=== PATIENT | female | born 1965 | race Caucasian/White ===

== ENCOUNTER 2018-12-08 21:01 | Emergency (ER) | payer OTHER, MEDICAID, SELFPAY ==
[2018-12-08 21:18] VITALS: BP 120/80; PULSE 88; RESP 18; TEMP 36.6; O2SAT 99
--- NOTE | 2018-12-08 21:18 | ED_ITS ---
HPI - Extremity Injury (Upper) General Chief Complaint: Extremity Problem,Nontraumatic Stated Complaint: LEFT SHOULDER, ARM PAIN Time Seen by Provider: 12/08/18 21:02 Source: patient and family Mode of arrival: ambulatory Limitations: no limitations History of Present Illness HPI narrative: 53-year-old female nonsmoker with benign medical history presents with severe left shoulder pain in the absence of any significant injury. The patient has had ongoing trouble with this left shoulder and a recent MRI shows a partial tear of her rotator cuff. She has been to 2 sessions of physical therapy but denies any new injury or supposed overuse. She finds relief with a position of comfort and worsening symptoms with range of motion. She denies numbness, tingling or weakness. She is otherwise well. Related Data Previous Rx's Medication Instructions Recorded hydrocodone-acetaminophen 1 tab PO Q4-6H PRN #10 tab 12/08/18 Allergies Allergy/AdvReac Type Severity Reaction Status Date / Time No Known Drug Allergies Allergy Verified 12/08/18 21:20 Review of Systems Constitutional Denies chills, Denies fever(s), Denies lethargy and Denies weakness Eyes Denies change in vision, Denies eye discharge, Denies irritation and Denies loss of vision ENT Ears, Nose, Mouth, and Throat: Denies change in voice, Denies neck pain and Den ies sore throat Cardiovascular Denies chest pain, Denies irregular heart rhythm, Denies lightheadedness, Denies palpitations, Denies dyspnea, Denies dyspnea on exertion and Denies orthopnea Respiratory Denies cough, Denies dyspnea, Denies dyspnea on exertion and Denies wheezing Gastrointestinal Gastrointestinal: Denies abdominal pain, Denies change in bowel habits, Denies diarrhea, Denies nausea and Denies vomiting Genitourinary Denies hematuria, Denies flank pain, Denies urinary incontinence and Denies urinary urgency Musculoskeletal Reports limited range of motion and Denies neck pain Integumentary/Breasts Denies pruritus, Denies erythema, Denies rash and Denies wounds Neurologic Denies confusion, Denies loss of vision and Denies weakness Psychiatric Denies anxiety, Denies confusion, Denies depression, Denies homicidal ideation and Denies suicidal ideation Endocrine Denies palpitations Hematologic/Lymphatic Denies easy bruising Allergic/Immunologic Denies wheezing [facility] Social History Smoking Status: Never smoker Social History Smoking Status: Never smoker Exam Narrative Exam Narrative: GEN: AOx3 and in mild distress, obviously in pain, splinting her left shoulder EYES: Pupils are equal, round, and reactive to light and accommodation. Extraoccular muscles are intact bilaterally. There is no subconjunctival hemorrhage or exudate. CHEST: Lungs are clear to auscultation bilaterally and free of wheezes, rales, or rhonchi. Heart rate is regular rhythm, there are no murmurs, clicks, rubs, or gallops. There is no chest wall tenderness. ABD: Abdomen is soft and nontender. There is no guarding or rebound. Bowel sounds are normal in all 4 quadrants. There is no mass or organomegaly. EXT: Decreased range of motion secondary to pain, held in a splinted position with left forearm across belly. Tenderness primarily in lateral shoulder. No sensory deficit. Unable to examine full range of motion given pain SKIN: Warm, pink, and dry. No erythema or rash Initial Vital Signs Initial Vital Signs: Vital Signs Temperature 97.9 F 12/08/18 21:18 Pulse Rate 88 12/08/18 21:18 Respiratory Rate 18 12/08/18 21:18 Blood Pressure 120/80 12/08/18 21:18 Pulse Oximetry 99 12/08/18 21:18 Procedures Orthopedic Splinting/Casting Injury #1: Side: left Upper Extremity Injury Location: shoulder Upper Extremity Immobilizer: sling/shoulder immobilizer Post splinting neuro exam: intact Post splinting vascular exam: intact Placed by: Nursing Course Orders Ordered: Discontinued Medications Hydrocodone Bitart/Acetaminophen (Vicodin Prepack) 1 bottle [facility] Stop: 12/08/18 21:14 Last Admin: 12/08/18 21:21 Dose: 1 bottle Vital Signs - 8 hr 12/08/18 21:18 Temperature 97.9 F Pulse Rate 88 Respiratory Rate 18 Blood Pressure 120/80 Pulse Oximetry 99 MDM - Extremity Injury (Upper) [facility] Narrative Medical decision making narrative: Patient with no injury, known left shoulder problem as noted on recent MRI presents with severe pain. She recently started up physical therapy which may have exacerbated her problem. Patient given a splint which provides some relief as well as pain control and encouragement to follow up with her doctors. No new imaging given lack of any traumatic injury Discharge Plan Departure Patient Disposition: Home Clinical Impression: Shoulder pain, left Qualifiers: Chronicity: acute Qualified Code(s): M25.512 - Pain in left shoulder Discharge Date/Time: 12/08/18 21:30 Interventions: ED Discharge Assessment Last Done: 12/08/18 21:30 Instructions: DI for Shoulder Pain Activity Restrictions/Additional Instructions: *You have been diagnosed with [left shoulder injury] *What to do: *Take medications as directed *Follow up with your primary care provider in 2-3 days, call for an appointment. Let them know you were seen in the Emergency Department and that we ask that you be seen in follow up *Return to ER if you should have any new, worsening or concerning symptoms Prescriptions: New hydrocodone-acetaminophen 5-325 mg tablet 1 tab PO Q4-6H PRN (Reason: pain) Qty: 10 RF: 0 Referrals: Art Amador MD [Primary Care Provider] - Dom Benton MD [Physician] -
[2018-12-08] MEDS: HYDROCODONE/ACET 5/325 PREPACK 1 BOTTLE MISC (21:21)
== END 2018-12-08 21:30 | disposition home or self-care (01) ==
PROVIDERS: Emergency Provider Emergency Medicine; Family Provider Family Medicine; PCP Family Medicine
DX: M25.512 Pain in left shoulder (principal)
CPT/HCPCS: 99282; 99283

== ENCOUNTER 2019-01-27 07:30 | Outpatient (RCR) | payer OTHER, MEDICAID, SELFPAY ==
--- NOTE | 2018-12-01 17:35 | PT.OIE ---
Current Diagnoses Acute pain due to trauma (12/01/18) Pain in left shoulder (12/01/18) Provider Visit Care Team Role Provider Type Art Amador MD Attending Provider Non-Staff Primary Care Provider Specialty: Medical Address: [address] [place] [address], [id number] Email: Physical Therapy Initial Evaluation PT-OP-A Visit Information Start: 12/01/18 09:02 Freq: Status: Active Protocol: Document 12/01/18 09:02 EA (Rec: 12/01/18 09:04 EA [id number]) Out-Patient Physical Therapy Visit Information Visit Information Visit Type Initial Evaluation Visit Start Time 07:30 Visit Stop Time 08:15 Total Visit Minutes 45 Visit Number 1 Evaluation Information Evaluation Date 12/01/18 PT-OP-B Current Condition Start: 12/01/18 09:02 Freq: Status: Active Protocol: Document 12/01/18 09:02 EA (Rec: 12/01/18 09:04 EA [id number]) Current Condition History of Current Condition Onset Date 1 year ago Current Complaints left shoulder pain History of Current Condition Pt reports no significant shoulder injury and medical history that could relate to her left shoulder. She reports onset a year ago and was aggravated two months ago after a fall and landed to left shoulder; she denies severe injury or hospitalization. She reports recent MRI reveals supraspinatus partial tendon tear, AC jont OA, and calcific tendinits. She reports that pain awakes her at night and ICE and OTC meds help put her back to sleep. Prior Treatments and Tests Recent shoulder MRI. No formal PT treatment Future Testing and Treatments Planned None reported Treatment Goals Patient/Caregiver Goals 1. To have no pain 2. 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 Baseline Function- Recreation/Hobbies Play with her small kids Current Functional Impairments (Reported) Functional Limitations- ADL's Indep but difficulty with overhead activities using left arm Functional Limitations- Mobility/Gait Indep Functional Limitations- Work/School Limited shoulder functional use in all overhead and reaching backward. Functional Limitations- Recreation/ Impaired left shoulder Hobbies mobility Personal Factors Other Personal Factors That May Effect DM, Back pain,asthma Therapy/Recovery PT-OP-C Subjective Start: 12/01/18 09:02 Freq: Status: Active Protocol: Document 12/01/18 17:30 EA (Rec: 12/02/18 09:40 EA [id number]) OP-PT Subjective Patient Comments Patient Comments Sleeping to left shoulder becomes horrible Patient Reported Progress Worse Patient Questionnaires Quick Dash- Upper Extremity Quick Dash UE Score 52 Quick Dash UE Impairment 40 to 59% Impaired (Score 40- 59) PT-OP-E Functional Tests Start: 12/01/18 09:02 Freq: Status: Active Protocol: Document 12/01/18 17:35 EA (Rec: 12/02/18 11:07 EA [id number]) Functional Tests Apley's Scratch Test Action 1- Left post deltoi Action 1- Right Sup scap boder Action 2- Left T3 Action 2- Right T4 Action 3- Left L3 Action 3- Right T6 PT-OP-J Posture/Palpation/Skin Start: 12/01/18 09:02 Freq: Status: Active Protocol: Document 12/01/18 17:30 EA (Rec: 12/02/18 09:40 EA [id number]) Posture Evaluation Comments Posture Comments Slight fwd head and rounded shoulders. Palpation Assessment Location One Palpation Location anterior shoulder/ TRC insertion, SS muscle Palpation Findings Tenderness PT-OP-K Range of Motion Start: 12/01/18 09:02 Freq: Status: Active Protocol: Document 12/01/18 17:30 EA (Rec: 12/02/18 09:45 EA [id number]) Shoulder Goniometric Range of Motion Shoulder Left Active Shoulder ROM WFL Yes Right Active Shoulder ROM WFL No Testing Position Sitting Flexion 165 Extension 55 Abduction 160 External Rotation at 0 degrees Abduction 65 Internal Rotation 45 Shoulder ROM Limitations Shoulder ROM Limitations Pain PT-OP-L Special Tests Start: 12/01/18 09:02 Freq: Status: Active Protocol: Document 12/01/18 17:30 EA (Rec: 12/02/18 09:45 EA [id number]) Special Tests Shoulder Special Tests Lucero Nick Impingement Test Results + Empty Can Test Results + Elevation Impingement Test Results + Lift-Off Rotator Cuff Test Results + Speed's Biceps Test Results - Neer Impingement Test Results + PT-OP-M Strength Start: 12/01/18 09:02 Freq: Status: Active Protocol: Document 12/01/18 17:35 EA (Rec: 12/02/18 11:07 EA [id number]) Shoulder Strength Shoulder Manual Muscle Testing Right Reason Not Measured WFL Left Flexion 3+ Fair+ Extension 4- Good- Abduction (C5) 3+ Fair+ Adduction 4 Good External Rotation 3+ Fair+ Internal Rotation 3+ Fair+ Horizontal Abduction 4- Good- Horizontal Adduction 4- Good- Comments Pain limits strength Elbow/Forearm Strength Elbow and Forearm Manual Muscle Testing Right Reason Not Measured WFL PT-OP-Q Treatments Start: 12/01/18 09:02 Freq: Status: Active Protocol: Document 12/01/18 17:35 EA (Rec: 12/02/18 11:08 EA [id number]) Self-Care/Home Management Treatment Education Patient Education Home Exercise Program Joint Protection Pain Management Posture PT-OP-T Assessment and Plan Start: 12/01/18 09:02 Freq: Status: Active Protocol: Document 12/01/18 17:35 EA (Rec: 12/02/18 11:07 EA [id number]) Physical Therapy Assessment Rehab Potential Rehabilitation Potential Good Evaluation Complexity Number of Personal Factors/Comorbidities 3 or More Number of Body Systems Impaired 3 Clinical Presentation at Evaluation Evolving Impairments Impairments Activity Tolerance Functional Mobility Pain Posture ROM Strength Goals Four Impairment 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 LTG Duration 4 wks Two Impairment QuickDash shoulder functional score of 52/100 Manager Control Goal (LTG) QuickDash functional score of <20/100 LTG Duration 5 wks One Impairment NO HEP in place Manager Control Goal (LTG) Patient perform progressive HEP independently LTG Duration 3 wks Assessment Summary Assessment Pleasant 53 y/o F patient with referring diagnosis of acute left shoulder pain due to trauma. Today patient exhibits decreased functional overhead, backward/fwd reach due to shoulder pain. Specials tests consistent with rotator cuff injury/ dysfunction. ROM and strength are equally limited with no signs of atrophy. At this time , patient is impaired to perform arm tasks or activities that was not limited a two months ago. Patient would greatly benefit with skilled PT to reach high functional shoulder mobility. Physical Therapy Plan Frequency and Duration Frequency of Treatment 2x/Week Duration of Treatment 8wks Plan of Care Start Date 12/01/18 Plan of Care End Date 01/26/19 Therapeutic Interventions Therapeutic Interventions Home Exercise Program Joint Mobilizations Manual Therapy Patient/Caregiver Education Self-Care/Home Management Sensory Integration Soft Tissue Mobilization Therapeutic Exercises Modalities Cold Pack/Ice Massage Electric Stimulation Hot Packs Ultrasound Next Visit Focus/Plan Next Note Type Treatment Note Next Visit Plan HEP with images, molaities to pain, ROM exercises, education to restrictions
--- NOTE | 2018-12-01 17:35 | PT.OPPOC ---
Current Diagnoses Acute pain due to trauma (12/01/18) Pain in left shoulder (12/01/18) Provider Visit Care Team Role Provider Type Art Amador MD Attending Provider Non-Staff Primary Care Provider Specialty: Medical Address: [address] [place] [address], [phone] Email: Plan Of Care PT-OP-T Assessment and Plan Start: 12/01/18 09:02 Freq: Status: Active Protocol: Document 12/01/18 17:35 EA (Rec: 12/02/18 11:07 EA [id number]) Physical Therapy Assessment Rehab Potential Rehabilitation Potential Good Evaluation Complexity Number of Personal Factors/Comorbidities 3 or More Number of Body Systems Impaired 3 Clinical Presentation at Evaluation Evolving Impairments Impairments Activity Tolerance Functional Mobility Pain Posture ROM Strength Goals Four Impairment 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 LTG Duration 4 wks Two Impairment QuickDash shoulder functional score of 52/100 Chcf Goal (LTG) QuickDash functional score of <20/100 LTG Duration 5 wks One Impairment NO HEP in place Chcf Goal (LTG) Patient perform progressive HEP independently LTG Duration 3 wks Assessment Summary Assessment Pleasant 53 y/o F patient with referring diagnosis of acute left shoulder pain due to trauma. Today patient exhibits decreased functional overhead, backward/fwd reach due to shoulder pain. Specials tests consistent with rotator cuff injury/ dysfunction. ROM and strength are equally limited with no signs of atrophy. At this time , patient is impaired to perform arm tasks or activities that was not limited a two months ago. Patient would greatly benefit with skilled PT to reach high functional shoulder mobility. Physical Therapy Plan Frequency and Duration Frequency of Treatment 2x/Week Duration of Treatment 8wks Plan of Care Start Date 12/01/18 Plan of Care End Date 01/26/19 Therapeutic Interventions Therapeutic Interventions Home Exercise Program Joint Mobilizations Manual Therapy Patient/Caregiver Education Self-Care/Home Management Sensory Integration Soft Tissue Mobilization Therapeutic Exercises Modalities Cold Pack/Ice Massage Electric Stimulation Hot Packs Ultrasound Next Visit Focus/Plan Next Note Type Treatment Note Next Visit Plan HEP with images, molaities to pain, ROM exercises, education to restrictions Plan of Care Dates Plan of Care Start Date 12/01/18 Plan of Care End Date 01/26/19 Please Sign and Return: I have reviewed this Plan of Care and certify that the skilled therapy services above are required to meet the patient?s needs. Physician Signature Date Printed Name and Credentials Clinical Instructor Signature Printed Name and Credentials
--- NOTE | 2018-12-04 08:18 | PT.OTN ---
Current Diagnoses Acute pain due to trauma (12/04/18) Pain in left shoulder (12/04/18) Physical Therapy Treatment Note PT-OP-A Visit Information Start: 12/01/18 09:02 Freq: Status: Active Protocol: Document 12/04/18 08:08 SA (Rec: 12/04/18 08:17 SA [id number]) Out-Patient Physical Therapy Visit Information Visit Information Visit Type Treatment Note Visit Start Time 07:30 Visit Stop Time 08:15 Visit Number 2 Number of INDUSTRIAL MECHANIC Visits 1 PT-OP-B Current Condition Start: 12/01/18 09:02 Freq: Status: Active Protocol: Document 12/01/18 09:02 EA (Rec: 12/01/18 09:04 EA [id number]) Current Condition History of Current Condition Onset Date 1 year ago Current Complaints left shoulder pain History of Current Condition Pt reports no significant shoulder injury and medical history that could relate to her left shoulder. She reports onset a year ago and was aggravated two months ago after a fall and landed to left shoulder; she denies severe injury or hospitalization. She reports recent MRI reveals supraspinatus partial tendon tear, AC jont OA, and calcific tendinits. She reports that pain awakes her at night and ICE and OTC meds help put her back to sleep. Prior Treatments and Tests Recent shoulder MRI. No formal PT treatment Future Testing and Treatments Planned None reported Treatment Goals Patient/Caregiver Goals 1. To have no pain 2. 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 Baseline Function- Recreation/Hobbies Play with her small kids Current Functional Impairments (Reported) Functional Limitations- ADL's Indep but difficulty with overhead activities using left arm Functional Limitations- Mobility/Gait Indep Functional Limitations- Work/School Limited shoulder functional use in all overhead and reacing backward. Functional Limitations- Recreation/ Impaired left shoulder Hobbies mobility Personal Factors Other Personal Factors That May Effect DM, Back pain,asthma Therapy/Recovery PT-OP-C Subjective Start: 12/01/18 09:02 Freq: Status: Active Protocol: Document 12/04/18 08:08 SA (Rec: 12/04/18 08:17 SA [email or web address]) OP-PT Subjective Patient Comments Patient Comments Pt reports continued pain with sleeping, doing 2 exercises that were given last visit with no problems. PT-OP-E Functional Tests Start: 12/01/18 09:02 Freq: Status: Active Protocol: Document 12/01/18 17:35 EA (Rec: 12/02/18 11:07 EA [id number]) Functional Tests Apley's Scratch Test Action 1- Left post deltoi Action 1- Right Sup scap boder Action 2- Left T3 Action 2- Right T4 Action 3- Left L3 Action 3- Right T6 PT-OP-J Posture/Palpation/Skin Start: 12/01/18 09:02 Freq: Status: Active Protocol: Document 12/01/18 17:30 EA (Rec: 12/02/18 09:40 EA [id number]) Posture Evaluation Comments Posture Comments Slight fwd head and rounded shoulders. Palpation Assessment Location One Palpation Location anterior shoulder/ TRC insertion, SS muscle Palpation Findings Tenderness PT-OP-K Range of Motion Start: 12/01/18 09:02 Freq: Status: Active Protocol: Document 12/01/18 17:30 EA (Rec: 12/02/18 09:45 EA [id number]) Shoulder Goniometric Range of Motion Shoulder Left Active Shoulder ROM WFL Yes Right Active Shoulder ROM WFL No Testing Position Sitting Flexion 165 Extension 55 Abduction 160 External Rotation at 0 degrees Abduction 65 Internal Rotation 45 Shoulder ROM Limitations Shoulder ROM Limitations Pain PT-OP-L Special Tests Start: 12/01/18 09:02 Freq: Status: Active Protocol: Document 12/01/18 17:30 EA (Rec: 12/02/18 09:45 EA [id number]) Special Tests Shoulder Special Tests Lucero Nick Impingement Test Results + Empty Can Test Results + Elevation Impingement Test Results + Lift-Off Rotator Cuff Test Results + Speed's Biceps Test Results - Neer Impingement Test Results + PT-OP-M Strength Start: 12/01/18 09:02 Freq: Status: Active Protocol: Document 12/01/18 17:35 EA (Rec: 12/02/18 11:07 EA [id number]) Shoulder Strength Shoulder Manual Muscle Testing Right Reason Not Measured WFL Left Flexion 3+ Fair+ Extension 4- Good- Abduction (C5) 3+ Fair+ Adduction 4 Good External Rotation 3+ Fair+ Internal Rotation 3+ Fair+ Horizontal Abduction 4- Good- Horizontal Adduction 4- Good- Comments Pain limits strength Elbow/Forearm Strength Elbow and Forearm Manual Muscle Testing Right Reason Not Measured WFL PT-OP-Q Treatments Start: 12/01/18 09:02 Freq: Status: Active Protocol: Document 12/04/18 08:08 (Rec: 12/04/18 08:17 [id number]) Therapeutic Exercises Supine Exercises Scapular punch Side left Reps/Minutes 20x Sidelying Exercises Shoulder ER Side left Reps/Minutes 20x Standing Exercises EXT with dowel Side bilateral Reps/Minutes 25 x Flexion with dowel Side bilateral Reps/Minutes 25 x Comments at wall Scapular rows Side bilateral Equipment Used TB # 2 Reps/Minutes 20x Other Exercises Pulleys Other Exercise Name Scaption/IR in standing Side left Equipment Used pulleys Reps/Minutes 3 min each Manual Therapy Treatment Soft Tissue Mobilization UT/anterior shoulder Mobilization Type Cross-Friction Strumming Sustained Pressure Intensity/Depth Moderate Body Position Hooklying Manual Techniques PROM Type all planes Body Position Hooklying Reps/Duration with stretch PT-OP-R Modalities Start: 12/01/18 09:02 Freq: Status: Active Protocol: Document 12/04/18 08:08 (Rec: 12/04/18 08:17 [id number]) Hot Pack/Cold Pack Treatment CP Location L shoulder Patient Position Hooklying Treatment Duration (minutes) 10 Patient Tolerance Good PT-OP-T Assessment and Plan Start: 12/01/18 09:02 Freq: Status: Active Protocol: Document 12/04/18 08:08 (Rec: 12/04/18 08:17 [id number]) Physical Therapy Assessment Assessment Summary Assessment tolerated new exercises well with reports of fatigue but not pain. Added Rows to HEP with TB and pt using ice reg at home. Education for side sleeping with use of pillow to support LUE. Physical Therapy Plan Next Visit Focus/Plan Next Note Type Treatment Note Next Visit Plan HEP with images, molaities to pain, ROM exercises, education to restrictions
--- NOTE | 2018-12-16 18:39 | PT.OTN ---
Current Diagnoses Acute pain due to trauma (12/16/18) Pain in left shoulder (12/16/18) Physical Therapy Treatment Note PT-OP-A Visit Information Start: 12/01/18 09:02 Freq: Status: Active Protocol: Document 12/16/18 17:30 HH (Rec: 12/16/18 18:39 HH [email or web address]) Out-Patient Physical Therapy Visit Information Visit Information Visit Type Treatment Note Visit Start Time 17:30 Visit Stop Time 18:15 Visit Number 3 Number of RN ORTHO Visits 0 PT-OP-B Current Condition Start: 12/01/18 09:02 Freq: Status: Active Protocol: Document 12/01/18 09:02 EA (Rec: 12/01/18 09:04 EA [id number]) Current Condition History of Current Condition Onset Date 1 year ago Current Complaints left shoulder pain History of Current Condition Pt reports no significant shoulder injury and medical history that could relate to her left shoulder. She reports onset a year ago and was aggravated two months ago after a fall and landed to left shoulder; she denies severe injury or hospitalization. She reports recent MRI reveals supraspinatus partial tendon tear, AC jont OA, and calcific tendinits. She reports that pain awakes her at night and ICE and OTC meds help put her back to sleep. Prior Treatments and Tests Recent shoulder MRI. No formal PT treatment Future Testing and Treatments Planned None reported Treatment Goals Patient/Caregiver Goals 1. To have no pain 2. 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 Baseline Function- Recreation/Hobbies Play with her small kids Current Functional Impairments (Reported) Functional Limitations- ADL's Indep but difficulty with overhead activities using left arm Functional Limitations- Mobility/Gait Indep Functional Limitations- Work/School Limited shoulder functional use in all overhead and reacing backward. Functional Limitations- Recreation/ Impaired left shoulder Hobbies mobility Personal Factors Other Personal Factors That May Effect DM, Back pain,asthma Therapy/Recovery PT-OP-C Subjective Start: 12/01/18 09:02 Freq: Status: Active Protocol: Document 12/16/18 17:30 HH (Rec: 12/16/18 18:39 HH [email or web address]) OP-PT Subjective Patient Comments Patient Comments Pt went to follow up with surgeon. Pt decided to try rehab with PT for 8 weeks before considering surgery. Pt also states she went to ER due to excessive shoulder pain. Pt is also prescribed with tramadol and meloxicam. PT-OP-E Functional Tests Start: 12/01/18 09:02 Freq: Status: Active Protocol: Document 12/01/18 17:35 EA (Rec: 12/02/18 11:07 EA [id number]) Functional Tests Apley's Scratch Test Action 1- Left post deltoi Action 1- Right Sup scap boder Action 2- Left T3 Action 2- Right T4 Action 3- Left L3 Action 3- Right T6 PT-OP-J Posture/Palpation/Skin Start: 12/01/18 09:02 Freq: Status: Active Protocol: Document 12/01/18 17:30 EA (Rec: 12/02/18 09:40 EA [id number]) Posture Evaluation Comments Posture Comments Slight fwd head and rounded shoulders. Palpation Assessment Location One Palpation Location anterior shoulder/ TRC insertion, SS muscle Palpation Findings Tenderness PT-OP-K Range of Motion Start: 12/01/18 09:02 Freq: Status: Active Protocol: Document 12/01/18 17:30 EA (Rec: 12/02/18 09:45 EA [id number]) Shoulder Goniometric Range of Motion Shoulder Left Active Shoulder ROM WFL Yes Right Active Shoulder ROM WFL No Testing Position Sitting Flexion 165 Extension 55 Abduction 160 External Rotation at 0 degrees Abduction 65 Internal Rotation 45 Shoulder ROM Limitations Shoulder ROM Limitations Pain PT-OP-L Special Tests Start: 12/01/18 09:02 Freq: Status: Active Protocol: Document 12/01/18 17:30 EA (Rec: 12/02/18 09:45 EA [id number]) Special Tests Shoulder Special Tests Lucero Nick Impingement Test Results + Empty Can Test Results + Elevation Impingement Test Results + Lift-Off Rotator Cuff Test Results + Speed's Biceps Test Results - Neer Impingement Test Results + PT-OP-M Strength Start: 12/01/18 09:02 Freq: Status: Active Protocol: Document 12/01/18 17:35 EA (Rec: 12/02/18 11:07 EA [id number]) Shoulder Strength Shoulder Manual Muscle Testing Right Reason Not Measured WFL Left Flexion 3+ Fair+ Extension 4- Good- Abduction (C5) 3+ Fair+ Adduction 4 Good External Rotation 3+ Fair+ Internal Rotation 3+ Fair+ Horizontal Abduction 4- Good- Horizontal Adduction 4- Good- Comments Pain limits strength Elbow/Forearm Strength Elbow and Forearm Manual Muscle Testing Right Reason Not Measured WFL PT-OP-Q Treatments Start: 12/01/18 09:02 Freq: Status: Active Protocol: Document 12/16/18 17:30 (Rec: 12/16/18 18:39 [email or web address]) Therapeutic Exercises Supine Exercises Scapular punch Side left Reps/Minutes 20x Sidelying Exercises Shoulder ER Side left Reps/Minutes 20x Sitting Exercises table slide Side left Reps/Minutes 10 x2 Comments with towel Standing Exercises wall climb Side bilateral Reps/Minutes 10 x2 AAROM with PVC Standing Exercise Name ABD and flexion Side left Reps/Minutes 10 x 2 EXT with dowel Side bilateral Reps/Minutes 25 x Manual Therapy Treatment Nerve Glides cervical nerve glide Comments cervical SB to R PT-OP-R Modalities Start: 12/01/18 09:02 Freq: Status: Active Protocol: Document 12/04/18 08:08 SA (Rec: 12/04/18 08:17 SA [email or web address]) Hot Pack/Cold Pack Treatment CP Location L shoulder Patient Position Hooklying Treatment Duration (minutes) 10 Patient Tolerance Good PT-OP-T Assessment and Plan Start: 12/01/18 09:02 Freq: Status: Active Protocol: Document 12/16/18 17:30 (Rec: 12/16/18 18:39 [email or web address]) Physical Therapy Assessment Assessment Summary Assessment Pt malik AAROM with PVC very well and reports increased neural sensitivity with nerve glide ex. Pt reports reduced pain and increased ROM at the end of session. Added cervical lateral flexion to R to HEP. Physical Therapy Plan Next Visit Focus/Plan Next Note Type Treatment Note Next Visit Plan reassess pt symptoms and hEP. molaities to pain, ROM exercises, education to restrictions AAROM as malik
--- NOTE | 2018-12-18 12:38 | PT.OTN ---
Current Diagnoses Acute pain due to trauma (12/18/18) Pain in left shoulder (12/18/18) Physical Therapy Treatment Note PT-OP-A Visit Information Start: 12/01/18 09:02 Freq: Status: Active Protocol: Document 12/18/18 08:17 LRN (Rec: 12/18/18 09:05 LRN [id number]) Out-Patient Physical Therapy Visit Information Visit Information Visit Type Treatment Note Visit Start Time 08:17 Visit Stop Time 09:05 Total Visit Minutes 48 Visit Number 4 Number of WELT EDGE ROUNDER Visits 0 Evaluation Information Evaluation Date 12/01/18 Precautions Precautions MRI shows intrasubstance & articular tear of anterior and mid supraspinatus tendon. PT-OP-B Current Condition Start: 12/01/18 09:02 Freq: Status: Active Protocol: Document 12/01/18 09:02 EA (Rec: 12/01/18 09:04 EA [id number]) Current Condition History of Current Condition Onset Date 1 year ago Current Complaints left shoulder pain History of Current Condition Pt reports no significant shoulder injury and medical history that could relate to her left shoulder. She reports onset a year ago and was aggravated two months ago after a fall and landed to left shoulder; she denies severe injury or hospitalization. She reports recent MRI reveals supraspinatus partial tendon tear, AC jont OA, and calcific tendinits. She reports that pain awakes her at night and ICE and OTC meds help put her back to sleep. Prior Treatments and Tests Recent shoulder MRI. No formal PT treatment Future Testing and Treatments Planned None reported Treatment Goals Patient/Caregiver Goals 1. To have no pain 2. 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 Baseline Function- Recreation/Hobbies Play with her small kids Current Functional Impairments (Reported) Functional Limitations- ADL's Indep but difficulty with overhead activities using left arm Functional Limitations- Mobility/Gait Indep Functional Limitations- Work/School Limited shoulder functional use in all overhead and reacing backward. Functional Limitations- Recreation/ Impaired left shoulder Hobbies mobility Personal Factors Other Personal Factors That May Effect DM, Back pain,asthma Therapy/Recovery PT-OP-C Subjective Start: 12/01/18 09:02 Freq: Status: Active Protocol: Document 12/18/18 08:17 LRN (Rec: 12/18/18 09:05 LRN [id number]) OP-PT Subjective Patient Comments Patient Comments States she had alleviation of arm pain with neck ex's. PT-OP-E Functional Tests Start: 12/01/18 09:02 Freq: Status: Active Protocol: Document 12/01/18 17:35 EA (Rec: 12/02/18 11:07 EA [id number]) Functional Tests Apley's Scratch Test Action 1- Left post deltoi Action 1- Right Sup scap boder Action 2- Left T3 Action 2- Right T4 Action 3- Left L3 Action 3- Right T6 PT-OP-J Posture/Palpation/Skin Start: 12/01/18 09:02 Freq: Status: Active Protocol: Document 12/01/18 17:30 EA (Rec: 12/02/18 09:40 EA [id number]) Posture Evaluation Comments Posture Comments Slight fwd head and rounded shoulders. Palpation Assessment Location One Palpation Location anterior shoulder/ TRC insertion, SS muscle Palpation Findings Tenderness PT-OP-K Range of Motion Start: 12/01/18 09:02 Freq: Status: Active Protocol: Document 12/01/18 17:30 EA (Rec: 12/02/18 09:45 EA [id number]) Shoulder Goniometric Range of Motion Shoulder Left Active Shoulder ROM WFL Yes Right Active Shoulder ROM WFL No Testing Position Sitting Flexion 165 Extension 55 Abduction 160 External Rotation at 0 degrees Abduction 65 Internal Rotation 45 Shoulder ROM Limitations Shoulder ROM Limitations Pain PT-OP-L Special Tests Start: 12/01/18 09:02 Freq: Status: Active Protocol: Document 12/01/18 17:30 EA (Rec: 12/02/18 09:45 EA [id number]) Special Tests Shoulder Special Tests Lucero Nick Impingement Test Results + Empty Can Test Results + Elevation Impingement Test Results + Lift-Off Rotator Cuff Test Results + Speed's Biceps Test Results - Neer Impingement Test Results + PT-OP-M Strength Start: 12/01/18 09:02 Freq: Status: Active Protocol: Document 12/01/18 17:35 EA (Rec: 12/02/18 11:07 EA [id number]) Shoulder Strength Shoulder Manual Muscle Testing Right Reason Not Measured WFL Left Flexion 3+ Fair+ Extension 4- Good- Abduction (C5) 3+ Fair+ Adduction 4 Good External Rotation 3+ Fair+ Internal Rotation 3+ Fair+ Horizontal Abduction 4- Good- Horizontal Adduction 4- Good- Comments Pain limits strength Elbow/Forearm Strength Elbow and Forearm Manual Muscle Testing Right Reason Not Measured WFL PT-OP-Q Treatments Start: 12/01/18 09:02 Freq: Status: Active Protocol: Document 12/18/18 08:17 LRN (Rec: 12/18/18 09:05 LRN [id number]) Therapeutic Exercises Supine Exercises Neck stretch Supine Exercise Name Scalenes Side left Reps/Minutes 3' Lat pull down Supine Exercise Name Lat pull down Resistance Lev 2 T Band Reps/Minutes 30x Scapular punch Side left Reps/Minutes 20x Sidelying Exercises Shoulder ER Side left Reps/Minutes 10 x 3 Sitting Exercises table slide Sitting Exercise Name Flex & AB Side left Reps/Minutes 10 x2 Comments with towel Standing Exercises Arm extension Side bilateral Resistance TB # 2 Equipment Used 15x wall climb Side bilateral Reps/Minutes 10 x3 AAROM with PVC Standing Exercise Name ABD and flexion Side left Reps/Minutes 10 x 2 EXT with dowel Side bilateral Reps/Minutes 25 x Scapular rows Side bilateral Equipment Used TB # 2 Reps/Minutes 15x Manual Therapy Treatment Nerve Glides cervical nerve glide Comments cervical SB to R Self-Care/Home Management Treatment Education Patient Education Home Exercise Program Activities Self-Care/Home Management Activities Issued & reviewed HEP: Scalene stretches PT-OP-R Modalities Start: 12/01/18 09:02 Freq: Status: Active Protocol: Document 12/18/18 08:17 LRN (Rec: 12/18/18 12:38 LRN [id number]) Hot Pack/Cold Pack Treatment CP Location L shoulder Patient Position Hooklying Treatment Duration (minutes) 10 Patient Tolerance Good PT-OP-T Assessment and Plan Start: 12/01/18 09:02 Freq: Status: Active Protocol: Document 12/18/18 08:17 LRN (Rec: 12/18/18 09:05 LRN [id number]) Physical Therapy Assessment Assessment Summary Assessment Last session, lessened lateral brachium pain with neck stretches. Pt felt good stretch with scalene stretch. Physical Therapy Plan Frequency and Duration Frequency of Treatment 2x/Week Duration of Treatment 8wks Plan of Care Start Date 12/01/18 Plan of Care End Date 01/26/19 Next Visit Focus/Plan Next Note Type Treatment Note Next Visit Plan Monitor pt symptoms and progress HEP. modalities to pain, ROM exercises, education to restrictions AAROM as malik
--- NOTE | 2018-12-23 12:03 | PT.OTN ---
Current Diagnoses Acute pain due to trauma (12/23/18) Pain in left shoulder (12/23/18) Physical Therapy Treatment Note PT-OP-A Visit Information Start: 12/01/18 09:02 Freq: Status: Active Protocol: Document 12/23/18 08:11 EA (Rec: 12/23/18 08:17 EA [id number]) Out-Patient Physical Therapy Visit Information Visit Information Visit Type Treatment Note Visit Start Time 07:30 Visit Stop Time 08:18 Total Visit Minutes 48 Visit Number 5 Number of SPECIAL EFFECTS PERSON Visits 1 PT-OP-B Current Condition Start: 12/01/18 09:02 Freq: Status: Active Protocol: Document 12/01/18 09:02 EA (Rec: 12/01/18 09:04 EA [id number]) Current Condition History of Current Condition Onset Date 1 year ago Current Complaints left shoulder pain History of Current Condition Pt reports no significant shoulder injury and medical history that could relate to her left shoulder. She reports onset a year ago and was aggravated two months ago after a fall and landed to left shoulder; she denies severe injury or hospitalization. She reports recent MRI reveals supraspinatus partial tendon tear, AC jont OA, and calcific tendinits. She reports that pain awakes her at night and ICE and OTC meds help put her back to sleep. Prior Treatments and Tests Recent shoulder MRI. No formal PT treatment Future Testing and Treatments Planned None reported Treatment Goals Patient/Caregiver Goals 1. To have no pain 2. 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 Baseline Function- Recreation/Hobbies Play with her small kids Current Functional Impairments (Reported) Functional Limitations- ADL's Indep but difficulty with overhead activities using left arm Functional Limitations- Mobility/Gait Indep Functional Limitations- Work/School Limited shoulder functional use in all overhead and reacing backward. Functional Limitations- Recreation/ Impaired left shoulder Hobbies mobility Personal Factors Other Personal Factors That May Effect DM, Back pain,asthma Therapy/Recovery PT-OP-C Subjective Start: 12/01/18 09:02 Freq: Status: Active Protocol: Document 12/23/18 08:11 EA (Rec: 12/23/18 08:17 EA [id number]) OP-PT Subjective Patient Comments Patient Comments Pt reports she has been better since initial eval; states compliant with HEP. PT-OP-E Functional Tests Start: 12/01/18 09:02 Freq: Status: Active Protocol: Document 12/01/18 17:35 EA (Rec: 12/02/18 11:07 EA [id number]) Functional Tests Apley's Scratch Test Action 1- Left post deltoi Action 1- Right Sup scap boder Action 2- Left T3 Action 2- Right T4 Action 3- Left L3 Action 3- Right T6 PT-OP-J Posture/Palpation/Skin Start: 12/01/18 09:02 Freq: Status: Active Protocol: Document 12/01/18 17:30 EA (Rec: 12/02/18 09:40 EA [id number]) Posture Evaluation Comments Posture Comments Slight fwd head and rounded shoulders. Palpation Assessment Location One Palpation Location anterior shoulder/ TRC insertion, SS muscle Palpation Findings Tenderness PT-OP-K Range of Motion Start: 12/01/18 09:02 Freq: Status: Active Protocol: Document 12/01/18 17:30 EA (Rec: 12/02/18 09:45 EA [id number]) Shoulder Goniometric Range of Motion Shoulder Left Active Shoulder ROM WFL Yes Right Active Shoulder ROM WFL No Testing Position Sitting Flexion 165 Extension 55 Abduction 160 External Rotation at 0 degrees Abduction 65 Internal Rotation 45 Shoulder ROM Limitations Shoulder ROM Limitations Pain PT-OP-L Special Tests Start: 12/01/18 09:02 Freq: Status: Active Protocol: Document 12/01/18 17:30 EA (Rec: 12/02/18 09:45 EA [id number]) Special Tests Shoulder Special Tests Lucero Nick Impingement Test Results + Empty Can Test Results + Elevation Impingement Test Results + Lift-Off Rotator Cuff Test Results + Speed's Biceps Test Results - Neer Impingement Test Results + PT-OP-M Strength Start: 12/01/18 09:02 Freq: Status: Active Protocol: Document 12/01/18 17:35 EA (Rec: 12/02/18 11:07 EA [id number]) Shoulder Strength Shoulder Manual Muscle Testing Right Reason Not Measured WFL Left Flexion 3+ Fair+ Extension 4- Good- Abduction (C5) 3+ Fair+ Adduction 4 Good External Rotation 3+ Fair+ Internal Rotation 3+ Fair+ Horizontal Abduction 4- Good- Horizontal Adduction 4- Good- Comments Pain limits strength Elbow/Forearm Strength Elbow and Forearm Manual Muscle Testing Right Reason Not Measured WFL PT-OP-Q Treatments Start: 12/01/18 09:02 Freq: Status: Active Protocol: Document 12/23/18 08:11 EA (Rec: 12/23/18 08:17 EA [id number]) Cardio Equipment Upper Body Ergometer (UBE) Duration (Minutes) 5 Height 4 Therapeutic Exercises Supine Exercises Neck stretch Supine Exercise Name Scalenes Side left Reps/Minutes 3' Scapular punch Side left Resistance 1#AW Reps/Minutes 20x Standing Exercises Arm extension Side bilateral Resistance TB # 2 Equipment Used 15x wall climb Side bilateral Reps/Minutes 10 x3 Other Exercises 3 Other Exercise Name T-Bar shoulder press Reps/Minutes x 15 reps 2 Other Exercise Name T-bar shoulder flexion Resistance 2# Reps/Minutes x 12 reps 1 Other Exercise Name ER/IR Resistance Lv 1 Reps/Minutes x 12 reps Pulleys Other Exercise Name Scaption/IR in standing Side left Equipment Used pulleys Reps/Minutes 3 min each Manual Therapy Treatment Soft Tissue Mobilization UT/anterior shoulder Mobilization Type Cross-Friction Strumming Sustained Pressure Intensity/Depth Moderate Body Position Hooklying PT-OP-R Modalities Start: 12/01/18 09:02 Freq: Status: Active Protocol: Document 12/23/18 08:11 EA (Rec: 12/23/18 08:17 EA [id number]) Hot Pack/Cold Pack Treatment CP Location L shoulder Patient Position Hooklying Treatment Duration (minutes) 10 Patient Tolerance Good PT-OP-T Assessment and Plan Start: 12/01/18 09:02 Freq: Status: Active Protocol: Document 12/23/18 08:11 EA (Rec: 12/23/18 08:17 EA [id number]) Physical Therapy Assessment Assessment Summary Assessment Tolerated treatment well. Less discomfort at 90 deg flex/abd at this time. Patient is progressing well. Physical Therapy Plan Next Visit Focus/Plan Next Note Type Treatment Note Next Visit Plan Progress as tolerated
--- NOTE | 2018-12-30 09:13 | PT.OTN ---
Current Diagnoses Acute pain due to trauma (12/30/18) Pain in left shoulder (12/30/18) Physical Therapy Treatment Note PT-OP-A Visit Information Start: 12/01/18 09:02 Freq: Status: Active Protocol: Document 12/30/18 08:48 EA (Rec: 12/30/18 08:55 EA [id number]) Out-Patient Physical Therapy Visit Information Visit Information Visit Type Treatment Note Visit Start Time 07:30 Visit Stop Time 08:23 Total Visit Minutes 53 Visit Number 6 Number of PICKER MACHINE OPERATOR Visits 1 PT-OP-B Current Condition Start: 12/01/18 09:02 Freq: Status: Active Protocol: Document 12/01/18 09:02 EA (Rec: 12/01/18 09:04 EA [id number]) Current Condition History of Current Condition Onset Date 1 year ago Current Complaints left shoulder pain History of Current Condition Pt reports no significant shoulder injury and medical history that could relate to her left shoulder. She reports onset a year ago and was aggravated two months ago after a fall and landed to left shoulder; she denies severe injury or hospitalization. She reports recent MRI reveals supraspinatus partial tendon tear, AC jont OA, and calcific tendinits. She reports that pain awakes her at night and ICE and OTC meds help put her back to sleep. Prior Treatments and Tests Recent shoulder MRI. No formal PT treatment Future Testing and Treatments Planned None reported Treatment Goals Patient/Caregiver Goals 1. To have no pain 2. 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 Baseline Function- Recreation/Hobbies Play with her small kids Current Functional Impairments (Reported) Functional Limitations- ADL's Indep but difficulty with overhead activities using left arm Functional Limitations- Mobility/Gait Indep Functional Limitations- Work/School Limited shoulder functional use in all overhead and reacing backward. Functional Limitations- Recreation/ Impaired left shoulder Hobbies mobility Personal Factors Other Personal Factors That May Effect DM, Back pain,asthma Therapy/Recovery PT-OP-C Subjective Start: 12/01/18 09:02 Freq: Status: Active Protocol: Document 12/30/18 08:48 EA (Rec: 12/30/18 08:55 EA [id number]) OP-PT Subjective Patient Comments Patient Comments Pt reports left shoulder is quite sore but improving; states aware with shoulder lifting pre-cautions Patient Reported Progress Improving PT-OP-E Functional Tests Start: 12/01/18 09:02 Freq: Status: Active Protocol: Document 12/01/18 17:35 EA (Rec: 12/02/18 11:07 EA [id number]) Functional Tests Apley's Scratch Test Action 1- Left post deltoi Action 1- Right Sup scap boder Action 2- Left T3 Action 2- Right T4 Action 3- Left L3 Action 3- Right T6 PT-OP-J Posture/Palpation/Skin Start: 12/01/18 09:02 Freq: Status: Active Protocol: Document 12/01/18 17:30 EA (Rec: 12/02/18 09:40 EA [id number]) Posture Evaluation Comments Posture Comments Slight fwd head and rounded shoulders. Palpation Assessment Location One Palpation Location anterior shoulder/ TRC insertion, SS muscle Palpation Findings Tenderness PT-OP-K Range of Motion Start: 12/01/18 09:02 Freq: Status: Active Protocol: Document 12/01/18 17:30 EA (Rec: 12/02/18 09:45 EA [id number]) Shoulder Goniometric Range of Motion Shoulder Left Active Shoulder ROM WFL Yes Right Active Shoulder ROM WFL No Testing Position Sitting Flexion 165 Extension 55 Abduction 160 External Rotation at 0 degrees Abduction 65 Internal Rotation 45 Shoulder ROM Limitations Shoulder ROM Limitations Pain PT-OP-L Special Tests Start: 12/01/18 09:02 Freq: Status: Active Protocol: Document 12/01/18 17:30 EA (Rec: 12/02/18 09:45 EA [id number]) Special Tests Shoulder Special Tests Lucero Nick Impingement Test Results + Empty Can Test Results + Elevation Impingement Test Results + Lift-Off Rotator Cuff Test Results + Speed's Biceps Test Results - Neer Impingement Test Results + PT-OP-M Strength Start: 12/01/18 09:02 Freq: Status: Active Protocol: Document 12/01/18 17:35 EA (Rec: 12/02/18 11:07 EA [id number]) Shoulder Strength Shoulder Manual Muscle Testing Right Reason Not Measured WFL Left Flexion 3+ Fair+ Extension 4- Good- Abduction (C5) 3+ Fair+ Adduction 4 Good External Rotation 3+ Fair+ Internal Rotation 3+ Fair+ Horizontal Abduction 4- Good- Horizontal Adduction 4- Good- Comments Pain limits strength Elbow/Forearm Strength Elbow and Forearm Manual Muscle Testing Right Reason Not Measured WFL PT-OP-Q Treatments Start: 12/01/18 09:02 Freq: Status: Active Protocol: Document 12/30/18 08:48 EA (Rec: 12/30/18 08:55 EA [id number]) Cardio Equipment Upper Body Ergometer (UBE) Duration (Minutes) 5 Height 5 Gym Equipment Cable Column (Body Solid) Rows Details full range Resistance 3 plates Reps/Time x 15 reps x 2 Lat Pull Down Details full range Resistance 3 plates Reps/Time x 15 reps x 2 Therapeutic Exercises Standing Exercises Arm extension Standing Exercise Name T-bar Side bilateral Resistance 4lbs Equipment Used 15x Other Exercises 4 Other Exercise Name DB shoulder lat raise Resistance 1-2# Reps/Minutes x 12 reps x 2 sets 3 Other Exercise Name T-Bar shoulder press Resistance 1# Reps/Minutes x 15 reps 2 Other Exercise Name T-bar shoulder flexion Resistance 2# Reps/Minutes x 12 reps 1 Other Exercise Name ER/IR Resistance Lv 1-2 Reps/Minutes x 12 reps x 2 sets Pulleys Other Exercise Name Scaption/IR in standing Side left Equipment Used pulleys Reps/Minutes 3 min each Manual Therapy Treatment Soft Tissue Mobilization UT/anterior shoulder Mobilization Type Cross-Friction Strumming Sustained Pressure Intensity/Depth Moderate Body Position Hooklying PT-OP-R Modalities Start: 12/01/18 09:02 Freq: Status: Active Protocol: Document 12/30/18 08:48 EA (Rec: 12/30/18 08:55 EA [id number]) Hot Pack/Cold Pack Treatment CP Location L shoulder Patient Position Hooklying Treatment Duration (minutes) 10 Patient Tolerance Good PT-OP-T Assessment and Plan Start: 12/01/18 09:02 Freq: Status: Active Protocol: Document 12/30/18 08:48 EA (Rec: 12/30/18 08:55 EA [id number]) Physical Therapy Assessment Assessment Summary Assessment Improved resistance exercises tolerance; discomfort only noetd at ranges 160-180 F/ABD; overall patient is progressing well.
--- NOTE | 2019-01-01 08:16 | PT.OTN ---
Current Diagnoses Acute pain due to trauma (01/01/19) Pain in left shoulder (01/01/19) Physical Therapy Treatment Note PT-OP-A Visit Information Start: 12/01/18 09:02 Freq: Status: Active Protocol: Document 01/01/19 07:30 AMB (Rec: 01/01/19 07:36 AMB [id number]) Out-Patient Physical Therapy Visit Information Visit Information Visit Type Treatment Note Visit Start Time 07:31 Visit Stop Time 08:23 Total Visit Minutes 52 Visit Number 7 Number of CLINICAL TRIAL SPECIALIST Visits 0 PT-OP-B Current Condition Start: 12/01/18 09:02 Freq: Status: Active Protocol: Document 12/01/18 09:02 EA (Rec: 12/01/18 09:04 EA [id number]) Current Condition History of Current Condition Onset Date 1 year ago Current Complaints left shoulder pain History of Current Condition Pt reports no significant shoulder injury and medical history that could relate to her left shoulder. She reports onset a year ago and was aggravated two months ago after a fall and landed to left shoulder; she denies severe injury or hospitalization. She reports recent MRI reveals supraspinatus partial tendon tear, AC jont OA, and calcific tendinits. She reports that pain awakes her at night and ICE and OTC meds help put her back to sleep. Prior Treatments and Tests Recent shoulder MRI. No formal PT treatment Future Testing and Treatments Planned None reported Treatment Goals Patient/Caregiver Goals 1. To have no pain 2. 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 Baseline Function- Recreation/Hobbies Play with her small kids Current Functional Impairments (Reported) Functional Limitations- ADL's Indep but difficulty with overhead activities using left arm Functional Limitations- Mobility/Gait Indep Functional Limitations- Work/School Limited shoulder functional use in all overhead and reacing backward. Functional Limitations- Recreation/ Impaired left shoulder Hobbies mobility Personal Factors Other Personal Factors That May Effect DM, Back pain,asthma Therapy/Recovery PT-OP-C Subjective Start: 12/01/18 09:02 Freq: Status: Active Protocol: Document 01/01/19 07:30 AMB (Rec: 01/01/19 08:14 AMB [id number]) OP-PT Subjective Patient Comments Patient Comments Pt states feeling a bit better , although she did wake up with numbness in bilateral hands this morning, pt was sore after last appt PT-OP-E Functional Tests Start: 12/01/18 09:02 Freq: Status: Active Protocol: Document 12/01/18 17:35 EA (Rec: 12/02/18 11:07 EA [id number]) Functional Tests Apley's Scratch Test Action 1- Left post deltoi Action 1- Right Sup scap boder Action 2- Left T3 Action 2- Right T4 Action 3- Left L3 Action 3- Right T6 PT-OP-J Posture/Palpation/Skin Start: 12/01/18 09:02 Freq: Status: Active Protocol: Document 12/01/18 17:30 EA (Rec: 12/02/18 09:40 EA [id number]) Posture Evaluation Comments Posture Comments Slight fwd head and rounded shoulders. Palpation Assessment Location One Palpation Location anterior shoulder/ TRC insertion, SS muscle Palpation Findings Tenderness PT-OP-K Range of Motion Start: 12/01/18 09:02 Freq: Status: Active Protocol: Document 12/01/18 17:30 EA (Rec: 12/02/18 09:45 EA [id number]) Shoulder Goniometric Range of Motion Shoulder Left Active Shoulder ROM WFL Yes Right Active Shoulder ROM WFL No Testing Position Sitting Flexion 165 Extension 55 Abduction 160 External Rotation at 0 degrees Abduction 65 Internal Rotation 45 Shoulder ROM Limitations Shoulder ROM Limitations Pain PT-OP-L Special Tests Start: 12/01/18 09:02 Freq: Status: Active Protocol: Document 12/01/18 17:30 EA (Rec: 12/02/18 09:45 EA [id number]) Special Tests Shoulder Special Tests Lucero Nick Impingement Test Results + Empty Can Test Results + Elevation Impingement Test Results + Lift-Off Rotator Cuff Test Results + Speed's Biceps Test Results - Neer Impingement Test Results + PT-OP-M Strength Start: 12/01/18 09:02 Freq: Status: Active Protocol: Document 12/01/18 17:35 EA (Rec: 12/02/18 11:07 EA [id number]) Shoulder Strength Shoulder Manual Muscle Testing Right Reason Not Measured WFL Left Flexion 3+ Fair+ Extension 4- Good- Abduction (C5) 3+ Fair+ Adduction 4 Good External Rotation 3+ Fair+ Internal Rotation 3+ Fair+ Horizontal Abduction 4- Good- Horizontal Adduction 4- Good- Comments Pain limits strength Elbow/Forearm Strength Elbow and Forearm Manual Muscle Testing Right Reason Not Measured WFL PT-OP-Q Treatments Start: 12/01/18 09:02 Freq: Status: Active Protocol: Document 01/01/19 07:30 AMB (Rec: 01/01/19 08:06 AMB [id number]) Cardio Equipment Upper Body Ergometer (UBE) Duration (Minutes) 5 Height 5 Gym Equipment Cable Column (Body Solid) Rows Details full range Resistance 3 plates Reps/Time x 15 reps x 2 Lat Pull Down Details full range Resistance 3 plates Reps/Time x 15 reps x 2 Therapeutic Exercises Supine Exercises Neck stretch Supine Exercise Name Scalenes Side left Reps/Minutes 3' Scapular punch Side left Resistance 3#AW Reps/Minutes 20x Sidelying Exercises 1 Sidelying Exercise Name abduction Equipment Used 2# Reps/Minutes 2x10 Shoulder ER Side left Resistance 2# Reps/Minutes 10 x 3 Sitting Exercises 1 Sitting Exercise Name UT stretch Reps/Minutes 30x2 Other Exercises 3 Other Exercise Name T-Bar shoulder press Resistance 4# Reps/Minutes x 15 reps 2 Other Exercise Name T-bar shoulder flexion Resistance 4# Reps/Minutes x 12 reps PT-OP-R Modalities Start: 12/01/18 09:02 Freq: Status: Active Protocol: Document 01/01/19 07:30 AMB (Rec: 01/01/19 07:36 AMB [id number]) Hot Pack/Cold Pack Treatment CP Location L shoulder Patient Position Hooklying Treatment Duration (minutes) 10 Patient Tolerance Good PT-OP-T Assessment and Plan Start: 12/01/18 09:02 Freq: Status: Active Protocol: Document 01/01/19 07:30 AMB (Rec: 01/01/19 08:14 AMB [id number]) Physical Therapy Assessment Assessment Summary Assessment Pt tolerated strengthening well, reinforced sleep posture and neck stretching. Physical Therapy Plan Next Visit Focus/Plan Next Note Type Treatment Note Next Visit Plan Continue to progress HEP, follow up on sx with sleep
--- NOTE | 2019-01-04 12:44 | PT.OTN ---
Current Diagnoses Acute pain due to trauma (01/04/19) Pain in left shoulder (01/04/19) Physical Therapy Treatment Note PT-OP-A Visit Information Start: 12/01/18 09:02 Freq: Status: Active Protocol: Document 01/04/19 07:30 AMB (Rec: 01/04/19 07:59 AMB [id number]) Out-Patient Physical Therapy Visit Information Visit Information Visit Type Treatment Note Visit Start Time 07:45 Visit Stop Time 08:25 Total Visit Minutes 40 Visit Number 8 Number of RESEARCH HOME ECONOMIST Visits 0 PT-OP-B Current Condition Start: 12/01/18 09:02 Freq: Status: Active Protocol: Document 12/01/18 09:02 EA (Rec: 12/01/18 09:04 EA [id number]) Current Condition History of Current Condition Onset Date 1 year ago Current Complaints left shoulder pain History of Current Condition Pt reports no significant shoulder injury and medical history that could relate to her left shoulder. She reports onset a year ago and was aggravated two months ago after a fall and landed to left shoulder; she denies severe injury or hospitalization. She reports recent MRI reveals supraspinatus partial tendon tear, AC jont OA, and calcific tendinits. She reports that pain awakes her at night and ICE and OTC meds help put her back to sleep. Prior Treatments and Tests Recent shoulder MRI. No formal PT treatment Future Testing and Treatments Planned None reported Treatment Goals Patient/Caregiver Goals 1. To have no pain 2. 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 Baseline Function- Recreation/Hobbies Play with her small kids Current Functional Impairments (Reported) Functional Limitations- ADL's Indep but difficulty with overhead activities using left arm Functional Limitations- Mobility/Gait Indep Functional Limitations- Work/School Limited shoulder functional use in all overhead and reacing backward. Functional Limitations- Recreation/ Impaired left shoulder Hobbies mobility Personal Factors Other Personal Factors That May Effect DM, Back pain,asthma Therapy/Recovery PT-OP-C Subjective Start: 12/01/18 09:02 Freq: Status: Active Protocol: Document 01/04/19 07:30 AMB (Rec: 01/04/19 07:59 AMB [id number]) OP-PT Subjective Patient Comments Patient Comments Pt has not noticed more tingling in her hands and her neck is feeling better. She was sore after last visit for day, and continues to notice discomfort if she sleeps on the left side. PT-OP-E Functional Tests Start: 12/01/18 09:02 Freq: Status: Active Protocol: Document 12/01/18 17:35 EA (Rec: 12/02/18 11:07 EA [id number]) Functional Tests Apley's Scratch Test Action 1- Left post deltoi Action 1- Right Sup scap boder Action 2- Left T3 Action 2- Right T4 Action 3- Left L3 Action 3- Right T6 PT-OP-J Posture/Palpation/Skin Start: 12/01/18 09:02 Freq: Status: Active Protocol: Document 12/01/18 17:30 EA (Rec: 12/02/18 09:40 EA [id number]) Posture Evaluation Comments Posture Comments Slight fwd head and rounded shoulders. Palpation Assessment Location One Palpation Location anterior shoulder/ TRC insertion, SS muscle Palpation Findings Tenderness PT-OP-K Range of Motion Start: 12/01/18 09:02 Freq: Status: Active Protocol: Document 12/01/18 17:30 EA (Rec: 12/02/18 09:45 EA [id number]) Shoulder Goniometric Range of Motion Shoulder Left Active Shoulder ROM WFL Yes Right Active Shoulder ROM WFL No Testing Position Sitting Flexion 165 Extension 55 Abduction 160 External Rotation at 0 degrees Abduction 65 Internal Rotation 45 Shoulder ROM Limitations Shoulder ROM Limitations Pain PT-OP-L Special Tests Start: 12/01/18 09:02 Freq: Status: Active Protocol: Document 12/01/18 17:30 EA (Rec: 12/02/18 09:45 EA [id number]) Special Tests Shoulder Special Tests Lucero Nick Impingement Test Results + Empty Can Test Results + Elevation Impingement Test Results + Lift-Off Rotator Cuff Test Results + Speed's Biceps Test Results - Neer Impingement Test Results + PT-OP-M Strength Start: 12/01/18 09:02 Freq: Status: Active Protocol: Document 12/01/18 17:35 EA (Rec: 12/02/18 11:07 EA [id number]) Shoulder Strength Shoulder Manual Muscle Testing Right Reason Not Measured WFL Left Flexion 3+ Fair+ Extension 4- Good- Abduction (C5) 3+ Fair+ Adduction 4 Good External Rotation 3+ Fair+ Internal Rotation 3+ Fair+ Horizontal Abduction 4- Good- Horizontal Adduction 4- Good- Comments Pain limits strength Elbow/Forearm Strength Elbow and Forearm Manual Muscle Testing Right Reason Not Measured WFL PT-OP-Q Treatments Start: 12/01/18 09:02 Freq: Status: Active Protocol: Document 01/04/19 07:30 AMB (Rec: 01/04/19 07:59 AMB [id number]) Cardio Equipment Upper Body Ergometer (UBE) Duration (Minutes) 5 Height 5 Gym Equipment Cable Column (Body Solid) Rows Details full range Resistance 3 plates Reps/Time x 15 reps x 2 Lat Pull Down Details full range Resistance 3 plates Reps/Time x 15 reps x 2 Therapeutic Exercises Supine Exercises 1 Supine Exercise Name alternating isometrics Reps/Minutes 3 min Comments shoulder at 90 flex Sitting Exercises 1 Sitting Exercise Name UT stretch Reps/Minutes 30x2 Standing Exercises 3 Standing Exercise Name shoulder IR Resistance #2 TB Reps/Minutes 2x10 2 Standing Exercise Name shoulder ER Resistance #1 TB Reps/Minutes 1x12 1 Standing Exercise Name pec stretch doorway Reps/Minutes 30x2 PT-OP-R Modalities Start: 12/01/18 09:02 Freq: Status: Active Protocol: Document 01/04/19 07:30 AMB (Rec: 01/04/19 08:16 AMB [id number]) Hot Pack/Cold Pack Treatment CP Location L shoulder Patient Position Hooklying Treatment Duration (minutes) 10 Patient Tolerance Good PT-OP-T Assessment and Plan Start: 12/01/18 09:02 Freq: Status: Active Protocol: Document 01/04/19 07:30 AMB (Rec: 01/04/19 08:16 AMB [id number]) Physical Therapy Assessment Assessment Summary Assessment Pt with difficulty with resisted ER, but otherwise progressing well, may want to further discuss HEP for progression at home. Physical Therapy Plan Next Visit Focus/Plan Next Note Type Treatment Note Next Visit Plan Continue to progress HEP, follow up on sx with sleep
--- NOTE | 2019-01-14 12:02 | PT.OTN ---
Current Diagnoses Acute pain due to trauma (01/14/19) Pain in left shoulder (01/14/19) Physical Therapy Treatment Note PT-OP-A Visit Information Start: 12/01/18 09:02 Freq: Status: Active Protocol: Document 01/14/19 07:30 AMB (Rec: 01/14/19 07:35 AMB [id number]) Out-Patient Physical Therapy Visit Information Visit Information Visit Type Treatment Note Visit Start Time 07:30 Visit Stop Time 08:25 Total Visit Minutes 50 Visit Number 9 Number of FIELD AGENT Visits 0 PT-OP-B Current Condition Start: 12/01/18 09:02 Freq: Status: Active Protocol: Document 12/01/18 09:02 EA (Rec: 12/01/18 09:04 EA [id number]) Current Condition History of Current Condition Onset Date 1 year ago Current Complaints left shoulder pain History of Current Condition Pt reports no significant shoulder injury and medical history that could relate to her left shoulder. She reports onset a year ago and was aggravated two months ago after a fall and landed to left shoulder; she denies severe injury or hospitalization. She reports recent MRI reveals supraspinatus partial tendon tear, AC jont OA, and calcific tendinits. She reports that pain awakes her at night and ICE and OTC meds help put her back to sleep. Prior Treatments and Tests Recent shoulder MRI. No formal PT treatment Future Testing and Treatments Planned None reported Treatment Goals Patient/Caregiver Goals 1. To have no pain 2. 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 Baseline Function- Recreation/Hobbies Play with her small kids Current Functional Impairments (Reported) Functional Limitations- ADL's Indep but difficulty with overhead activities using left arm Functional Limitations- Mobility/Gait Indep Functional Limitations- Work/School Limited shoulder functional use in all overhead and reacing backward. Functional Limitations- Recreation/ Impaired left shoulder Hobbies mobility Personal Factors Other Personal Factors That May Effect DM, Back pain,asthma Therapy/Recovery PT-OP-C Subjective Start: 12/01/18 09:02 Freq: Status: Active Protocol: Document 01/14/19 07:30 AMB (Rec: 01/14/19 07:35 AMB [id number]) OP-PT Subjective Patient Comments Patient Comments Pt noticing numbness in bilateral hands some mornings, not sure why. Did wash a car yesterday and woke up with R shoulder being sore. PT-OP-E Functional Tests Start: 12/01/18 09:02 Freq: Status: Active Protocol: Document 12/01/18 17:35 EA (Rec: 12/02/18 11:07 EA [id number]) Functional Tests Apley's Scratch Test Action 1- Left post deltoi Action 1- Right Sup scap boder Action 2- Left T3 Action 2- Right T4 Action 3- Left L3 Action 3- Right T6 PT-OP-J Posture/Palpation/Skin Start: 12/01/18 09:02 Freq: Status: Active Protocol: Document 12/01/18 17:30 EA (Rec: 12/02/18 09:40 EA [id number]) Posture Evaluation Comments Posture Comments Slight fwd head and rounded shoulders. Palpation Assessment Location One Palpation Location anterior shoulder/ TRC insertion, SS muscle Palpation Findings Tenderness PT-OP-K Range of Motion Start: 12/01/18 09:02 Freq: Status: Active Protocol: Document 12/01/18 17:30 EA (Rec: 12/02/18 09:45 EA [id number]) Shoulder Goniometric Range of Motion Shoulder Left Active Shoulder ROM WFL Yes Right Active Shoulder ROM WFL No Testing Position Sitting Flexion 165 Extension 55 Abduction 160 External Rotation at 0 degrees Abduction 65 Internal Rotation 45 Shoulder ROM Limitations Shoulder ROM Limitations Pain PT-OP-L Special Tests Start: 12/01/18 09:02 Freq: Status: Active Protocol: Document 12/01/18 17:30 EA (Rec: 12/02/18 09:45 EA [id number]) Special Tests Shoulder Special Tests Lucero Nick Impingement Test Results + Empty Can Test Results + Elevation Impingement Test Results + Lift-Off Rotator Cuff Test Results + Speed's Biceps Test Results - Neer Impingement Test Results + PT-OP-M Strength Start: 12/01/18 09:02 Freq: Status: Active Protocol: Document 12/01/18 17:35 EA (Rec: 12/02/18 11:07 EA [id number]) Shoulder Strength Shoulder Manual Muscle Testing Right Reason Not Measured WFL Left Flexion 3+ Fair+ Extension 4- Good- Abduction (C5) 3+ Fair+ Adduction 4 Good External Rotation 3+ Fair+ Internal Rotation 3+ Fair+ Horizontal Abduction 4- Good- Horizontal Adduction 4- Good- Comments Pain limits strength Elbow/Forearm Strength Elbow and Forearm Manual Muscle Testing Right Reason Not Measured WFL PT-OP-Q Treatments Start: 12/01/18 09:02 Freq: Status: Active Protocol: Document 01/14/19 07:30 AMB (Rec: 01/14/19 07:41 AMB [id number]) Cardio Equipment Upper Body Ergometer (UBE) Duration (Minutes) 5 Height 5 Gym Equipment Cable Column (Body Solid) Rows Details full range Resistance 3 plates Reps/Time x 15 reps x 2 Lat Pull Down Details full range Resistance 3 plates Reps/Time x 15 reps x 2 Therapeutic Exercises Supine Exercises 1 Supine Exercise Name alternating isometrics Reps/Minutes 5 min Comments shoulder at 90 flex Prone Exercises 1 Prone Exercise Name I, T, Y Side bilateral Resistance AROM Reps/Minutes 2x10 ea Comments on t ball Sitting Exercises 1 Sitting Exercise Name UT stretch Reps/Minutes 30x2 Standing Exercises 3 Standing Exercise Name shoulder IR Resistance #2 TB Reps/Minutes 2x10 2 Standing Exercise Name shoulder ER Resistance #2 TB Reps/Minutes 2x10 PT-OP-R Modalities Start: 12/01/18 09:02 Freq: Status: Active Protocol: Document 01/14/19 07:30 AMB (Rec: 01/14/19 12:00 AMB [id number]) Hot Pack/Cold Pack Treatment CP Location L shoulder Patient Position Hooklying Treatment Duration (minutes) 10 Patient Tolerance Good PT-OP-T Assessment and Plan Start: 12/01/18 09:02 Freq: Status: Active Protocol: Document 01/14/19 07:30 AMB (Rec: 01/14/19 12:00 AMB [id number]) Physical Therapy Assessment Assessment Summary Assessment Pt did well with I, T, and Y- did fatigue with t band ER and rows today. Physical Therapy Plan Next Visit Focus/Plan Next Note Type Treatment Note Next Visit Plan Continue to progress HEP,
--- NOTE | 2019-01-19 10:25 | PT.OTN ---
Current Diagnoses Acute pain due to trauma (01/19/19) Pain in left shoulder (01/19/19) Physical Therapy Treatment Note PT-OP-A Visit Information Start: 12/01/18 09:02 Freq: Status: Active Protocol: Document 01/19/19 07:30 AMB (Rec: 01/19/19 07:39 AMB [id number]) Out-Patient Physical Therapy Visit Information Visit Information Visit Start Time 07:30 Visit Stop Time 08:20 Total Visit Minutes 50 Visit Number 10 PT-OP-B Current Condition Start: 12/01/18 09:02 Freq: Status: Active Protocol: Document 12/01/18 09:02 EA (Rec: 12/01/18 09:04 EA [id number]) Current Condition History of Current Condition Onset Date 1 year ago Current Complaints left shoulder pain History of Current Condition Pt reports no significant shoulder injury and medical history that could relate to her left shoulder. She reports onset a year ago and was aggravated two months ago after a fall and landed to left shoulder; she denies severe injury or hospitalization. She reports recent MRI reveals supraspinatus partial tendon tear, AC jont OA, and calcific tendinits. She reports that pain awakes her at night and ICE and OTC meds help put her back to sleep. Prior Treatments and Tests Recent shoulder MRI. No formal PT treatment Future Testing and Treatments Planned None reported Treatment Goals Patient/Caregiver Goals 1. To have no pain 2. 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 Functional Limitations- Recreation/ Impaired left shoulder Hobbies mobility Personal Factors Other Personal Factors That May Effect DM, Back pain,asthma Therapy/Recovery PT-OP-C Subjective Start: 12/01/18 09:02 Freq: Status: Active Protocol: Document 01/19/19 07:30 AMB (Rec: 01/19/19 07:39 AMB [id number]) OP-PT Subjective Patient Comments Patient Comments Sore in both shoulders the last few days PT-OP-E Functional Tests Start: 12/01/18 09:02 Freq: Status: Active Protocol: Document 12/01/18 17:35 EA (Rec: 12/02/18 11:07 EA [id number]) Functional Tests Apley's Scratch Test Action 1- Left post deltoi Action 1- Right Sup scap boder Action 2- Left T3 Action 2- Right T4 Action 3- Left L3 Action 3- Right T6 PT-OP-J Posture/Palpation/Skin Start: 12/01/18 09:02 Freq: Status: Active Protocol: Document 12/01/18 17:30 EA (Rec: 12/02/18 09:40 EA [id number]) Posture Evaluation Comments Posture Comments Slight fwd head and rounded shoulders. Palpation Assessment Location One Palpation Location anterior shoulder/ TRC insertion, SS muscle Palpation Findings Tenderness PT-OP-K Range of Motion Start: 12/01/18 09:02 Freq: Status: Active Protocol: Document 12/01/18 17:30 EA (Rec: 12/02/18 09:45 EA [id number]) Shoulder Goniometric Range of Motion Shoulder Left Active Shoulder ROM WFL Yes Right Active Shoulder ROM WFL No Testing Position Sitting Flexion 165 Extension 55 Abduction 160 External Rotation at 0 degrees Abduction 65 Internal Rotation 45 Shoulder ROM Limitations Shoulder ROM Limitations Pain PT-OP-L Special Tests Start: 12/01/18 09:02 Freq: Status: Active Protocol: Document 12/01/18 17:30 EA (Rec: 12/02/18 09:45 EA [id number]) Special Tests Shoulder Special Tests Lucero Nick Impingement Test Results + Empty Can Test Results + Elevation Impingement Test Results + Lift-Off Rotator Cuff Test Results + Speed's Biceps Test Results - Neer Impingement Test Results + PT-OP-M Strength Start: 12/01/18 09:02 Freq: Status: Active Protocol: Document 12/01/18 17:35 EA (Rec: 12/02/18 11:07 EA [id number]) Shoulder Strength Shoulder Manual Muscle Testing Right Reason Not Measured WFL Left Flexion 3+ Fair+ Extension 4- Good- Abduction (C5) 3+ Fair+ Adduction 4 Good External Rotation 3+ Fair+ Internal Rotation 3+ Fair+ Horizontal Abduction 4- Good- Horizontal Adduction 4- Good- Comments Pain limits strength Elbow/Forearm Strength Elbow and Forearm Manual Muscle Testing Right Reason Not Measured WFL PT-OP-Q Treatments Start: 12/01/18 09:02 Freq: Status: Active Protocol: Document 01/19/19 07:30 AMB (Rec: 01/19/19 07:39 AMB [id number]) Cardio Equipment Upper Body Ergometer (UBE) Duration (Minutes) 5 Height 5 Therapeutic Exercises Supine Exercises 1 Supine Exercise Name alternating isometrics Reps/Minutes 5 min Comments shoulder at 90 flex Prone Exercises 1 Prone Exercise Name I, T, Y Side bilateral Resistance AROM Reps/Minutes 2x10 ea Comments on t ball Sidelying Exercises 1 Sidelying Exercise Name shoulder abd Side bilateral Resistance AROM Shoulder ER Sidelying Exercise Name shoulder ER Side bilateral Resistance AROM Standing Exercises 3 Standing Exercise Name ER isometric Side bilateral Reps/Minutes 5x10 PT-OP-R Modalities Start: 12/01/18 09:02 Freq: Status: Active Protocol: Document 01/19/19 07:30 AMB (Rec: 01/19/19 08:15 AMB [id number]) Hot Pack/Cold Pack Treatment CP Location B shoulder Patient Position Hooklying Treatment Duration (minutes) 10 Patient Tolerance Good PT-OP-T Assessment and Plan Start: 12/01/18 09:02 Freq: Status: Active Protocol: Document 01/19/19 07:30 AMB (Rec: 01/19/19 08:15 AMB [id number]) Physical Therapy Assessment Assessment Summary Assessment More flared today with strengthening bilaterally Physical Therapy Plan Next Visit Focus/Plan Next Note Type Treatment Note Next Visit Plan Continue to progress HEP,
--- NOTE | 2019-01-21 09:26 | PT.OTN ---
Current Diagnoses Acute pain due to trauma (01/21/19) Pain in left shoulder (01/21/19) Physical Therapy Treatment Note PT-OP-A Visit Information Start: 12/01/18 09:02 Freq: Status: Active Protocol: Document 01/21/19 07:30 AMB (Rec: 01/21/19 07:41 AMB [id number]) Out-Patient Physical Therapy Visit Information Visit Information Visit Type Treatment Note Visit Start Time 07:30 Visit Stop Time 08:20 Total Visit Minutes 50 Visit Number 11` PT-OP-B Current Condition Start: 12/01/18 09:02 Freq: Status: Active Protocol: Document 12/01/18 09:02 EA (Rec: 12/01/18 09:04 EA [id number]) Current Condition History of Current Condition Onset Date 1 year ago Current Complaints left shoulder pain History of Current Condition Pt reports no significant shoulder injury and medical history that could relate to her left shoulder. She reports onset a year ago and was aggravated two months ago after a fall and landed to left shoulder; she denies severe injury or hospitalization. She reports recent MRI reveals supraspinatus partial tendon tear, AC jont OA, and calcific tendinits. She reports that pain awakes her at night and ICE and OTC meds help put her back to sleep. Prior Treatments and Tests Recent shoulder MRI. No formal PT treatment Future Testing and Treatments Planned None reported Treatment Goals Patient/Caregiver Goals 1. To have no pain 2. 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 Baseline Function- Recreation/Hobbies Play with her small kids Current Functional Impairments (Reported) Functional Limitations- ADL's Indep but difficulty with overhead activities using left arm Functional Limitations- Mobility/Gait Indep Functional Limitations- Work/School Limited shoulder functional use in all overhead and reacing backward. Functional Limitations- Recreation/ Impaired left shoulder Hobbies mobility Personal Factors Other Personal Factors That May Effect DM, Back pain,asthma Therapy/Recovery PT-OP-C Subjective Start: 12/01/18 09:02 Freq: Status: Active Protocol: Document 01/21/19 07:30 AMB (Rec: 01/21/19 07:41 AMB [id number]) OP-PT Subjective Patient Comments Patient Comments Sore after last PT visit, slept pretty well last night, but did have numbness in the R hand. PT-OP-E Functional Tests Start: 12/01/18 09:02 Freq: Status: Active Protocol: Document 12/01/18 17:35 EA (Rec: 12/02/18 11:07 EA [id number]) Functional Tests Apley's Scratch Test Action 1- Left post deltoi Action 1- Right Sup scap boder Action 2- Left T3 Action 2- Right T4 Action 3- Left L3 Action 3- Right T6 PT-OP-J Posture/Palpation/Skin Start: 12/01/18 09:02 Freq: Status: Active Protocol: Document 12/01/18 17:30 EA (Rec: 12/02/18 09:40 EA [id number]) Posture Evaluation Comments Posture Comments Slight fwd head and rounded shoulders. Palpation Assessment Location One Palpation Location anterior shoulder/ TRC insertion, SS muscle Palpation Findings Tenderness PT-OP-K Range of Motion Start: 12/01/18 09:02 Freq: Status: Active Protocol: Document 12/01/18 17:30 EA (Rec: 12/02/18 09:45 EA [id number]) Shoulder Goniometric Range of Motion Shoulder Left Active Shoulder ROM WFL Yes Right Active Shoulder ROM WFL No Testing Position Sitting Flexion 165 Extension 55 Abduction 160 External Rotation at 0 degrees Abduction 65 Internal Rotation 45 Shoulder ROM Limitations Shoulder ROM Limitations Pain PT-OP-L Special Tests Start: 12/01/18 09:02 Freq: Status: Active Protocol: Document 12/01/18 17:30 EA (Rec: 12/02/18 09:45 EA [id number]) Special Tests Shoulder Special Tests Lucero Nick Impingement Test Results + Empty Can Test Results + Elevation Impingement Test Results + Lift-Off Rotator Cuff Test Results + Speed's Biceps Test Results - Neer Impingement Test Results + PT-OP-M Strength Start: 12/01/18 09:02 Freq: Status: Active Protocol: Document 12/01/18 17:35 EA (Rec: 12/02/18 11:07 EA [id number]) Shoulder Strength Shoulder Manual Muscle Testing Right Reason Not Measured WFL Left Flexion 3+ Fair+ Extension 4- Good- Abduction (C5) 3+ Fair+ Adduction 4 Good External Rotation 3+ Fair+ Internal Rotation 3+ Fair+ Horizontal Abduction 4- Good- Horizontal Adduction 4- Good- Comments Pain limits strength Elbow/Forearm Strength Elbow and Forearm Manual Muscle Testing Right Reason Not Measured WFL PT-OP-Q Treatments Start: 12/01/18 09:02 Freq: Status: Active Protocol: Document 01/21/19 07:30 AMB (Rec: 01/21/19 09:26 AMB [id number]) Cardio Equipment Upper Body Ergometer (UBE) Duration (Minutes) 5 Height 5 Therapeutic Exercises Prone Exercises 1 Prone Exercise Name I, T, Y Side bilateral Resistance AROM Reps/Minutes 2x10 ea Comments on t ball Standing Exercises 3 Standing Exercise Name shoulder IR Resistance #2 TB Reps/Minutes 2x10 2 Standing Exercise Name shoulder ER Resistance #2 TB Reps/Minutes 2x10 1 Standing Exercise Name rows Resistance #2 t band Reps/Minutes 2x10 PT-OP-R Modalities Start: 12/01/18 09:02 Freq: Status: Active Protocol: Document 01/21/19 07:30 AMB (Rec: 01/21/19 09:26 AMB [id number]) Hot Pack/Cold Pack Treatment CP Location B shoulder Patient Position Hooklying Treatment Duration (minutes) 10 Patient Tolerance Good PT-OP-T Assessment and Plan Start: 12/01/18 09:02 Freq: Status: Active Protocol: Document 01/21/19 07:30 AMB (Rec: 01/21/19 09:26 AMB [id number]) Physical Therapy Assessment Assessment Summary Assessment Gave pt band and theraband HEP of rows, ER, IR. 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 Physical Therapy Plan Next Visit Focus/Plan Next Note Type Treatment Note Next Visit Plan Continue to progress HEP, focus on strengthening
--- NOTE | 2019-01-25 16:02 | PT.OTN ---
Current Diagnoses Acute pain due to trauma (01/25/19) Pain in left shoulder (01/25/19) Physical Therapy Treatment Note PT-OP-A Visit Information Start: 12/01/18 09:02 Freq: Status: Active Protocol: Document 01/25/19 07:30 AMB (Rec: 01/25/19 07:39 AMB [id number]) Out-Patient Physical Therapy Visit Information Visit Information Visit Type Treatment Note Visit Start Time 07:30 Visit Stop Time 08:15 Total Visit Minutes 45 Visit Number 12 PT-OP-B Current Condition Start: 12/01/18 09:02 Freq: Status: Active Protocol: Document 12/01/18 09:02 EA (Rec: 12/01/18 09:04 EA [id number]) Current Condition History of Current Condition Onset Date 1 year ago Current Complaints left shoulder pain History of Current Condition Pt reports no significant shoulder injury and medical history that could relate to her left shoulder. She reports onset a year ago and was aggravated two months ago after a fall and landed to left shoulder; she denies severe injury or hospitalization. She reports recent MRI reveals supraspinatus partial tendon tear, AC jont OA, and calcific tendinits. She reports that pain awakes her at night and ICE and OTC meds help put her back to sleep. Prior Treatments and Tests Recent shoulder MRI. No formal PT treatment Future Testing and Treatments Planned None reported Treatment Goals Patient/Caregiver Goals 1. To have no pain 2. 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 Baseline Function- Recreation/Hobbies Play with her small kids Current Functional Impairments (Reported) Functional Limitations- ADL's Indep but difficulty with overhead activities using left arm Functional Limitations- Mobility/Gait Indep Functional Limitations- Work/School Limited shoulder functional use in all overhead and reacing backward. Functional Limitations- Recreation/ Impaired left shoulder Hobbies mobility Personal Factors Other Personal Factors That May Effect DM, Back pain,asthma Therapy/Recovery PT-OP-C Subjective Start: 12/01/18 09:02 Freq: Status: Active Protocol: Document 01/25/19 07:30 AMB (Rec: 01/25/19 07:39 AMB [id number]) OP-PT Subjective Patient Comments Patient Comments Pt was sore after last visit and intermittently over the weekend but reports overall hands have been less numb PT-OP-E Functional Tests Start: 12/01/18 09:02 Freq: Status: Active Protocol: Document 12/01/18 17:35 EA (Rec: 12/02/18 11:07 EA [id number]) Functional Tests Apley's Scratch Test Action 1- Left post deltoi Action 1- Right Sup scap boder Action 2- Left T3 Action 2- Right T4 Action 3- Left L3 Action 3- Right T6 PT-OP-J Posture/Palpation/Skin Start: 12/01/18 09:02 Freq: Status: Active Protocol: Document 12/01/18 17:30 EA (Rec: 12/02/18 09:40 EA [id number]) Posture Evaluation Comments Posture Comments Slight fwd head and rounded shoulders. Palpation Assessment Location One Palpation Location anterior shoulder/ TRC insertion, SS muscle Palpation Findings Tenderness PT-OP-K Range of Motion Start: 12/01/18 09:02 Freq: Status: Active Protocol: Document 01/25/19 08:03 AMB (Rec: 01/25/19 08:06 AMB [id number]) Shoulder Goniometric Range of Motion Shoulder Left Active Flexion 165 Abduction 160 External Rotation at 90 degrees 70 Abduction Internal Rotation 70 PT-OP-L Special Tests Start: 12/01/18 09:02 Freq: Status: Active Protocol: Document 12/01/18 17:30 EA (Rec: 12/02/18 09:45 EA [id number]) Special Tests Shoulder Special Tests Lucero Nick Impingement Test Results + Empty Can Test Results + Elevation Impingement Test Results + Lift-Off Rotator Cuff Test Results + Speed's Biceps Test Results - Neer Impingement Test Results + PT-OP-M Strength Start: 12/01/18 09:02 Freq: Status: Active Protocol: Document 01/25/19 08:06 AMB (Rec: 01/25/19 08:10 AMB [id number]) Shoulder Strength Shoulder Manual Muscle Testing Left Flexion 4 Good Extension 4+ Good+ Abduction (C5) 4- Good- Adduction 4+ Good+ External Rotation 4- Good- Internal Rotation 4 Good Horizontal Abduction 4 Good Horizontal Adduction 4+ Good+ PT-OP-Q Treatments Start: 12/01/18 09:02 Freq: Status: Active Protocol: Document 01/25/19 07:30 AMB (Rec: 01/25/19 16:00 AMB [email or web address]) Cardio Equipment Upper Body Ergometer (UBE) Duration (Minutes) 5 Height 5 Gym Equipment Cable Column (Body Solid) Rows Details full range Resistance 3 plates Reps/Time x 15 reps x 2 Lat Pull Down Details full range Resistance 3 plates Reps/Time x 15 reps x 2 Therapeutic Exercises Supine Exercises Scapular punch Side left Resistance 3#AW Reps/Minutes 20x Standing Exercises 3 Standing Exercise Name shoulder IR Resistance #2 TB Reps/Minutes 2x10 2 Standing Exercise Name shoulder ER Resistance #2 TB Reps/Minutes 2x10 1 Standing Exercise Name rows Resistance #2 t band Reps/Minutes 2x10 PT-OP-R Modalities Start: 12/01/18 09:02 Freq: Status: Active Protocol: Document 01/25/19 07:30 AMB (Rec: 01/25/19 16:01 AMB [id number]) Hot Pack/Cold Pack Treatment CP Location B shoulder Patient Position Hooklying Treatment Duration (minutes) 10 Patient Tolerance Good PT-OP-T Assessment and Plan Start: 12/01/18 09:02 Freq: Status: Active Protocol: Document 01/25/19 07:30 AMB (Rec: 01/25/19 09:30 AMB [email or web address]) Physical Therapy Assessment Goals Four Impairment 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 LTG Duration 4 wks Two Impairment QuickDash shoulder functional score of 52/100 Certified Pedorthotist Goal (LTG) QuickDash functional score of <20/100 LTG Duration 5 wks One Impairment NO HEP in place Certified Pedorthotist Goal (LTG) Patient perform progressive HEP independently LTG Duration MET Assessment Summary Assessment Pt has improved with her strength significantly, but continues to have weakness with external rotation and abduction. Hand numbness is bilateral and intermittent but appears to be decreasing in frequency. Shama is scheduled for two more appointments, she was offered more but thinks she may schedule a follow up with her doctor, as she states she has improved a lot, and thinks she may get better with her HEP. we will see her for a few more appointments to finalize her HEP. Physical Therapy Plan Frequency and Duration Frequency of Treatment 2x/Week Duration of Treatment 4 weeks Plan of Care Start Date 01/25/19 Plan of Care End Date 02/22/19 Therapeutic Interventions Therapeutic Interventions Home Exercise Program,Joint Mobilizations,Manual Therapy, Patient/Caregiver Education, Self-Care/Home Management, Sensory Integration,Soft Tissue Mobilization, Therapeutic Activities, Therapeutic Exercises Modalities Cold Pack/Ice Massage,Electric Stimulation,Hot Packs, Ultrasound Next Visit Focus/Plan Next Note Type Treatment Note Next Visit Plan Continue to progress HEP, focus on strengthening
--- NOTE | 2019-01-25 16:02 | PT.OPPOC ---
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 LTG Duration 4 wks Two Impairment QuickDash shoulder functional score of 52/100 Administrative Volunteer Goal (LTG) QuickDash functional score of <20/100 LTG Duration 5 wks One Impairment NO HEP in place Administrative Volunteer Goal (LTG) Patient perform progressive HEP independently LTG Duration MET Assessment Summary Assessment Pt has improved with her strength significantly, but continues to have weakness with external rotation and abduction. Hand numbness is bilateral and intermittent but appears to be decreasing in frequency. Shama is scheduled for two more appointments, she was offered more but thinks she may schedule a follow up with her doctor, as she states she has improved a lot, and thinks she may get better with her HEP. we will see her for a few more appointments to finalize her HEP. Physical Therapy Plan Frequency and Duration Frequency of Treatment 2x/Week Duration of Treatment 4 weeks Plan of Care Start Date 01/25/19 Plan of Care End Date 02/22/19 Therapeutic Interventions Therapeutic Interventions Home Exercise Program,Joint Mobilizations,Manual Therapy, Patient/Caregiver Education, Self-Care/Home Management, Sensory Integration,Soft Tissue Mobilization, Therapeutic Activities, Therapeutic Exercises Modalities Cold Pack/Ice Massage,Electric Stimulation,Hot Packs, Ultrasound Next Visit Focus/Plan Next Note Type Treatment Note Next Visit Plan Continue to progress HEP, focus on strengthening Plan of Care Dates Plan of Care Start Date 01/25/19 Plan of Care End Date 02/22/19 Please Sign and Return: I have reviewed this Plan of Care and certify that the skilled therapy services above are required to meet the patient?s needs. Physician Signature Date Printed Name and Credentials Clinical Instructor Signature Printed Name and Credentials
--- NOTE | 2019-01-27 09:31 | PT.OTN ---
Current Diagnoses Acute pain due to trauma (01/27/19) Pain in left shoulder (01/27/19) Physical Therapy Treatment Note PT-OP-A Visit Information Start: 12/01/18 09:02 Freq: Status: Active Protocol: Document 01/27/19 07:45 AMB (Rec: 01/27/19 07:54 AMB [id number]) Out-Patient Physical Therapy Visit Information Visit Information Visit Type Treatment Note Visit Start Time 07:45 Visit Stop Time 08:25 Total Visit Minutes 30 Visit Number 13 PT-OP-B Current Condition Start: 12/01/18 09:02 Freq: Status: Active Protocol: Document 12/01/18 09:02 EA (Rec: 12/01/18 09:04 EA [id number]) Current Condition History of Current Condition Onset Date 1 year ago Current Complaints left shoulder pain History of Current Condition Pt reports no significant shoulder injury and medical history that could relate to her left shoulder. She reports onset a year ago and was aggravated two months ago after a fall and landed to left shoulder; she denies severe injury or hospitalization. She reports recent MRI reveals supraspinatus partial tendon tear, AC jont OA, and calcific tendinits. She reports that pain awakes her at night and ICE and OTC meds help put her back to sleep. Prior Treatments and Tests Recent shoulder MRI. No formal PT treatment Future Testing and Treatments Planned None reported Treatment Goals Patient/Caregiver Goals 1. To have no pain 2. 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 Baseline Function- Recreation/Hobbies Play with her small kids Current Functional Impairments (Reported) Functional Limitations- ADL's Indep but difficulty with overhead activities using left arm Functional Limitations- Mobility/Gait Indep Functional Limitations- Work/School Limited shoulder functional use in all overhead and reacing backward. Functional Limitations- Recreation/ Impaired left shoulder Hobbies mobility Personal Factors Other Personal Factors That May Effect DM, Back pain,asthma Therapy/Recovery PT-OP-C Subjective Start: 12/01/18 09:02 Freq: Status: Active Protocol: Document 01/27/19 07:45 AMB (Rec: 01/27/19 07:54 AMB [id number]) OP-PT Subjective Patient Comments Patient Comments Pt continues to be sore after PT, but feels like it is going to need to strengthen for awhile PT-OP-E Functional Tests Start: 12/01/18 09:02 Freq: Status: Active Protocol: Document 12/01/18 17:35 EA (Rec: 12/02/18 11:07 EA [id number]) Functional Tests Apley's Scratch Test Action 1- Left post deltoi Action 1- Right Sup scap boder Action 2- Left T3 Action 2- Right T4 Action 3- Left L3 Action 3- Right T6 PT-OP-J Posture/Palpation/Skin Start: 12/01/18 09:02 Freq: Status: Active Protocol: Document 12/01/18 17:30 EA (Rec: 12/02/18 09:40 EA [id number]) Posture Evaluation Comments Posture Comments Slight fwd head and rounded shoulders. Palpation Assessment Location One Palpation Location anterior shoulder/ TRC insertion, SS muscle Palpation Findings Tenderness PT-OP-K Range of Motion Start: 12/01/18 09:02 Freq: Status: Active Protocol: Document 01/25/19 08:03 AMB (Rec: 01/25/19 08:06 AMB [id number]) Shoulder Goniometric Range of Motion Shoulder Left Active Flexion 165 Abduction 160 External Rotation at 90 degrees 70 Abduction Internal Rotation 70 PT-OP-L Special Tests Start: 12/01/18 09:02 Freq: Status: Active Protocol: Document 12/01/18 17:30 EA (Rec: 12/02/18 09:45 EA [id number]) Special Tests Shoulder Special Tests Lucero Nick Impingement Test Results + Empty Can Test Results + Elevation Impingement Test Results + Lift-Off Rotator Cuff Test Results + Speed's Biceps Test Results - Neer Impingement Test Results + PT-OP-M Strength Start: 12/01/18 09:02 Freq: Status: Active Protocol: Document 01/25/19 08:06 AMB (Rec: 01/25/19 08:10 AMB [id number]) Shoulder Strength Shoulder Manual Muscle Testing Left Flexion 4 Good Extension 4+ Good+ Abduction (C5) 4- Good- Adduction 4+ Good+ External Rotation 4- Good- Internal Rotation 4 Good Horizontal Abduction 4 Good Horizontal Adduction 4+ Good+ PT-OP-Q Treatments Start: 12/01/18 09:02 Freq: Status: Active Protocol: Document 01/27/19 07:30 AMB (Rec: 01/27/19 09:31 AMB [id number]) Cardio Equipment Upper Body Ergometer (UBE) Duration (Minutes) 5 Height 5 Gym Equipment Cable Column (Body Solid) Rows Details full range Resistance 3 plates Reps/Time x 15 reps x 2 Lat Pull Down Details full range Resistance 3 plates Reps/Time x 15 reps x 2 Therapeutic Exercises Supine Exercises Neck stretch Supine Exercise Name flexion, UT, levator scap Reps/Minutes 30x2 Standing Exercises 3 Standing Exercise Name shoulder IR Resistance #2 TB Reps/Minutes 2x10 2 Standing Exercise Name shoulder ER Resistance #2 TB Reps/Minutes 2x10 Manual Therapy Treatment Other Other Manual Treatments PROM L shoulder gentle into end range flexion. PT-OP-R Modalities Start: 12/01/18 09:02 Freq: Status: Active Protocol: Document 01/27/19 07:30 AMB (Rec: 01/27/19 09:31 AMB [id number]) Hot Pack/Cold Pack Treatment CP Location L shoulder Patient Position Hooklying Treatment Duration (minutes) 10 Patient Tolerance Good PT-OP-T Assessment and Plan Start: 12/01/18 09:02 Freq: Status: Active Protocol: Document 01/27/19 07:30 AMB (Rec: 01/27/19 09:24 AMB [id number]) Physical Therapy Assessment Assessment Summary Assessment Shama states that she think she will be ready for discharge next visit and will continue on with her exercises at that time. Will need to review HEP to make sure she is doing well and has correct form. Overall shoulder pain is decreasing but still present when she lifts things and she can still wake up with bilateral hand numbness although this is intermittent. Physical Therapy Plan Next Visit Focus/Plan Next Note Type Discharge Summary Next Visit Plan Pt has more insurance authorization and is still working through impairments but thinks she will be ready for d/c next visit.
--- NOTE | 2019-02-01 09:21 | PT-OP ANOTE ---
Pt did not show up for 7:30 AM appointment. Called her and left message asking her to call to reschedule.
--- NOTE | 2019-04-01 08:53 | PT.OPDS ---
Current Diagnoses Acute pain due to trauma (01/27/19) Pain in left shoulder (01/27/19) Visit Care Team Role Provider Type Art Amador MD Attending Provider Non-Staff Primary Care Provider Specialty: Medical Address: [address] [place] [address], [id number] Email: Visit Number Visit Number 13 Discharge Summary PT-OP-B Current Condition Start: 12/01/18 09:02 Freq: Status: Active Protocol: Document 12/01/18 09:02 EA (Rec: 12/01/18 09:04 EA [id number]) Current Condition History of Current Condition Onset Date 1 year ago Current Complaints left shoulder pain History of Current Condition Pt reports no significant shoulder injury and medical history that could relate to her left shoulder. She reports onset a year ago and was aggravated two months ago after a fall and landed to left shoulder; she denies severe injury or hospitalization. She reports recent MRI reveals supraspinatus partial tendon tear, AC jont OA, and calcific tendinits. She reports that pain awakes her at night and ICE and OTC meds help put her back to sleep. Prior Treatments and Tests Recent shoulder MRI. No formal PT treatment Future Testing and Treatments Planned None reported Treatment Goals Patient/Caregiver Goals 1. To have no pain 2. 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 Functional Limitations- Recreation/ Impaired left shoulder Hobbies mobility Personal Factors Other Personal Factors That May Effect DM, Back pain,asthma Therapy/Recovery PT-OP-C Subjective Start: 12/01/18 09:02 Freq: Status: Active Protocol: Document 01/27/19 07:45 AMB (Rec: 01/27/19 07:54 AMB [id number]) OP-PT Subjective Patient Comments Patient Comments Pt continues to be sore after PT, but feels like it is going to need to strengthen for awhile PT-OP-E Functional Tests Start: 12/01/18 09:02 Freq: Status: Active Protocol: Document 12/01/18 17:35 EA (Rec: 12/02/18 11:07 EA [id number]) Functional Tests Apley's Scratch Test Action 1- Left post deltoi Action 1- Right Sup scap boder Action 2- Left T3 Action 2- Right T4 Action 3- Left L3 Action 3- Right T6 PT-OP-J Posture/Palpation/Skin Start: 12/01/18 09:02 Freq: Status: Active Protocol: Document 12/01/18 17:30 EA (Rec: 12/02/18 09:40 EA [id number]) Posture Evaluation Comments Posture Comments Slight fwd head and rounded shoulders. Palpation Assessment Location One Palpation Location anterior shoulder/ TRC insertion, SS muscle Palpation Findings Tenderness PT-OP-K Range of Motion Start: 12/01/18 09:02 Freq: Status: Active Protocol: Document 01/25/19 08:03 AMB (Rec: 01/25/19 08:06 AMB [id number]) Shoulder Goniometric Range of Motion Shoulder Left Active Flexion 165 Abduction 160 External Rotation at 90 degrees 70 Abduction Internal Rotation 70 PT-OP-L Special Tests Start: 12/01/18 09:02 Freq: Status: Active Protocol: Document 12/01/18 17:30 EA (Rec: 12/02/18 09:45 EA [id number]) Special Tests Shoulder Special Tests Lucero Nick Impingement Test Results + Empty Can Test Results + Elevation Impingement Test Results + Lift-Off Rotator Cuff Test Results + Speed's Biceps Test Results - Neer Impingement Test Results + PT-OP-M Strength Start: 12/01/18 09:02 Freq: Status: Active Protocol: Document 01/25/19 08:06 AMB (Rec: 01/25/19 08:10 AMB [id number]) Shoulder Strength Shoulder Manual Muscle Testing Left Flexion 4 Good Extension 4+ Good+ Abduction (C5) 4- Good- Adduction 4+ Good+ External Rotation 4- Good- Internal Rotation 4 Good Horizontal Abduction 4 Good Horizontal Adduction 4+ Good+ PT-OP-T Assessment and Plan Start: 12/01/18 09:02 Freq: Status: Active Protocol: Document 04/01/19 08:50 AMB (Rec: 04/01/19 08:52 AMB [id number]) Physical Therapy Assessment Goals Four Impairment 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 LTG Duration 4 wks Two Impairment QuickDash shoulder functional score of 52/100 Senior Care Goal (LTG) QuickDash functional score of <20/100 LTG Duration 5 wks One Impairment NO HEP in place Food Service Utility Worker Goal (LTG) Patient perform progressive HEP independently LTG Duration MET Assessment Summary Assessment At Nerstrand's last appointment she stated that she felt she was ready for discharge at the next visit. She did not show up to her last scheduled appointment. At the appointment that she last went to, she was doing her exercises and noticing improvement, but continued to have intermittent hand numbness with sleeping and shoulder pain with lifting especially overhead. Physical Therapy Plan Discharge Physical Therapy Discharge Reasons No Longer Attending PT
== END 2019-04-02 09:49 ==
LOC: PHYS 07:30
PROVIDERS: PCP Family Medicine; Visit Provider Family Medicine
DX: M25.512 Pain in left shoulder (principal); G89.11 Acute pain due to trauma
CPT/HCPCS: 97010; 97110; 97112; 97140; 97162; 97535

== ENCOUNTER → 2019-05-14 15:19 | Outpatient (CLI) | payer OTHER, MEDICAID, SELFPAY ==
--- NOTE | 2019-05-14 15:23 | DI.MG.S_ITS ---
BILATERAL DIGITAL SCREENING MAMMOGRAM 3D/2D WITH CAD: 05/14/2019 CLINICAL: Routine screening. Family history of breast cancer. Comparison is made to exams dated: 04/06/2018 mammogram, 04/03/2017 mammogram, and 09/19/2015 mammogram - [facility]. The tissue of both breasts is heterogeneously dense. This may lower the sensitivity of mammography. Current study was also evaluated with a Computer Aided Detection (CAD) system. There is a possible 0.6 cm oval equal density asymmetry in the left breast posterior depth superior region seen on the mediolateral oblique view only. No other significant masses, calcifications, or other findings are seen in either breast. IMPRESSION: INCOMPLETE: NEEDS ADDITIONAL IMAGING EVALUATION The possible 0.6 cm oval equal density asymmetry in the left breast is indeterminate. Additional views with possible ultrasound are recommended. This exam was interpreted at Station ID: [id number]. NOTE: For mammograms, a report in lay terms will be sent to the patient. Approximately 15% of breast malignancies will not be visualized mammographically. In the management of a palpable breast mass, a negative mammogram must not discourage biopsy of a clinically suspicious lesion. Electronically Signed By: John Rooney M.D. aty/:05/14/2019 16:25:07 letter sent: Additional Imaging Needed ACR BI-RADS Category 0: Incomplete [id number]
== END ==
PROVIDERS: Family Provider Family Medicine; PCP Family Medicine; Visit Provider Family Medicine
DX: Z12.31 Encounter for screening mammogram for malignant neoplasm of breast (principal); Z80.3 Family history of malignant neoplasm of breast
CPT/HCPCS: 77063; 77067

== ENCOUNTER → 2019-06-04 08:47 | Outpatient (CLI) | payer OTHER, MEDICAID, SELFPAY ==
--- NOTE | 2019-06-04 | DI.MG.S_ITS ---
UNILATERAL LEFT DIGITAL DIAGNOSTIC MAMMOGRAM 3D/2D WITH ADDITIONAL VIEWS: 06/04/2019 CLINICAL: Additional evaluation requested from prior study. Comparison is made to exams dated: 05/14/2019 mammogram - [facility], 04/06/2018 mammogram, 04/03/2017 mammogram, 09/19/2015 mammogram - [facility], 04/10/2009 mammogram - [facility], and 05/30/2011 mammogram - [facility]. The tissue of left breast is heterogeneously dense. This may lower the sensitivity of mammography. There is a 0.7 cm oval low density asymmetry with an indistinct and circumscribed margin in the left breast posterior depth central to the nipple seen on the mediolateral oblique view only. This is not significantly changed. No other significant masses or calcifications are seen in the breast. IMPRESSION: INCOMPLETE: NEEDS ADDITIONAL IMAGING EVALUATION The 0.7 cm oval low density asymmetry in the left breast is indeterminate. An ultrasound is recommended. This exam was interpreted at Station ID: [id number]. NOTE: For mammograms, a report in lay terms will be sent to the patient. Approximately 15% of breast malignancies will not be visualized mammographically. In the management of a palpable breast mass, a negative mammogram must not discourage biopsy of a clinically suspicious lesion. Electronically Signed By: Eric jovel/[email or web address]:06/04/2019 09:21:00 ACR BI-RADS Category 0: Incomplete [id number]
--- NOTE | 2019-06-04 | DI.US.S_ITS ---
LIMITED ULTRASOUND OF LEFT BREAST: 06/04/2019 CLINICAL: Additional evaluation requested from prior study. Comparison is made to exams dated: 06/04/2019 mammogram, 05/14/2019 mammogram - [facility], 04/06/2018 mammogram, 04/03/2017 mammogram, 09/19/2015 mammogram, and 09/12/2014 mammogram - [facility]. Color flow and real-time ultrasound of the left breast 3 o'clock region were performed on the areas of interest. There is a 0.8 cm x 0.5 cm x 0.7 cm oval normal lymph node in the left breast at 3 o'clock posterior depth. This oval normal lymph node is of mixed echogenicity with fatty hilum. This correlates with mammography findings. Color flow imaging demonstrates that there is no increase in vascularity. IMPRESSION: BENIGN There is no sonographic evidence of malignancy. The 0.8 cm x 0.5 cm x 0.7 cm oval normal lymph node in the left breast appears benign. This likely corresponds to the mammographic finding which appears stable compared to prior studies. A 1 year screening mammogram is recommended. This exam was interpreted at Station ID: [id number]. Electronically Signed By: Eric jovel/:06/04/2019 09:58:56 letter sent: Normal Exam Ultrasound BI-RADS: 2 Benign
== END ==
PROVIDERS: PCP Family Medicine; Visit Provider Family Medicine
DX: R92.8 Other abnormal and inconclusive findings on diagnostic imaging of breast (principal)
CPT/HCPCS: 76642; 77065; G0279

== ENCOUNTER 2019-07-26 19:53 | Emergency (ER) | payer OTHER, MEDICAID, SELFPAY ==
[2019-07-26 20:06] VITALS: BP 113/70; PULSE 114; RESP 22; TEMP 37.8; O2SAT 99
--- NOTE | 2019-07-26 20:09 | DI.RAD.S_ITS ---
PROCEDURE: XR CHEST 1V INDICATIONS: soa/fever/cough TECHNIQUE: One view of the chest was acquired. COMPARISON: None. FINDINGS: Surgical changes and devices: None. Lungs and pleura: Lungs are abnormal, with a mild alveolar infiltration pattern slightly greater on the left than the right. However, this is in the setting of reduced inspiratory volume.. No pleural effusions or pneumothorax. Mediastinum: Mediastinal contours appear normal. Heart size is normal. Bones and chest wall: No suspicious bony lesions. Overlying soft tissues appear unremarkable. IMPRESSION: Reduced inspiratory volume, suspect mild or early pneumonia at each lung base, left slightly greater than right. Dictated by: Melvin Terry M.D. on 07/26/2019 at 20:42 Approved by: Melvin Terry M.D. on 07/26/2019 at 20:43
--- NOTE | 2019-07-26 20:37 | ED.FEVER ---
HPI - Fever General Chief Complaint: Fever Stated Complaint: COUGH FEVER 100.2 Time Seen by Provider: 07/26/19 20:33 Source: patient Mode of arrival: Ambulatory Limitations: no limitations History of Present Illness HPI Narrative: This is a 54-year-old female who comes to the emergency department with complaint of fever up to 100.2 F at home. Patient had symptoms for the last 2 weeks. She states she had a green productive cough which has had decreased sputum production but she has developed a runny nose and continue to be coughing. Patient states she has a history of asthma which was later life onset. And that she has been wheezing fairly regularly. She has been requiring increased use of her albuterol inhaler. She states she is just not improving. She has not felt well but does not feel extremely sick. She states today was the 1st time she checked her temperature. She denies any chest pain except when she coughs. She denies any nausea, no vomiting, no diarrhea or constipation. No urinary symptoms. No swelling in her extremities. She denies any other medical issues. States she does not take any medications other than inhaler. Denies any drug allergies. Denies any tobacco use presently or in the past. No recent travel or suspicious contacts. Related Data Previous Rx's Medication Instructions Recorded hydrocodone-acetaminophen 1 tab PO Q4-6H PRN #10 tab 12/08/18 albuterol sulfate 2 puff INHALATION Q4-6H PRN #8 gram 07/26/19 oseltamivir [Tamiflu] 75 mg PO BID 5 Days #10 cap 07/26/19 prednisone 50 mg PO DAILY #5 tab 07/26/19 Allergies Allergy/AdvReac Type Severity Reaction Status Date / Time No Known Drug Allergies Allergy Verified 12/08/18 21:20 Review of Systems Review of Systems ROS Unobtainable: All systems reviewed & are unremarkable except as noted in HPI and below Patient History Medical History (Updated 07/26/19 @ 22:19 by Yovana Musa DO) Asthma (Acute) Social History Smoking Status: Never smoker Smoking Status: Never smoker Substance Use Type: does not use Exam Narrative Exam Narrative: GEN: well nourished, well appearing female, alert and oriented x 3, patient appears to be in mild distress. HEENT: Atraumatic, pupils are equal round reactive to light, extraocular movements are intact, nares show copious clear rhinorrhea, TMs are clear with no fluid, there is no conjunctival pallor. Throat is clear without any exudates, mild erythema bilaterally, no tonsillar enlargement or uvular deviation HEART: Regular rate and rhythm without murmur, clicks, rubs. LUNGS:Lungs clear to auscultation, no wheezes, rales, crackles, no tachypnea. Positive for dry cough,, chest moves symmetrically ABD:bowel sounds normal, soft, non-tender, no guarding, rebound, rigidity, no masses noted, no hepatosplenomegaly MSCL: Non-tender, no muscle atrophy, muscles strength 5/5 upper and lower extremities, full range of motion, normal gait NEURO:CN 2-12 intact, sensation normal SKIN: No rash, erythema or other skin changes. Initial Vital Signs Initial Vital Signs: Vital Signs Temperature 100.1 F H 07/26/19 20:06 Pulse Rate 114 H 07/26/19 20:06 Respiratory Rate 22 07/26/19 20:06 Blood Pressure 113/70 07/26/19 20:06 Pulse Oximetry 99 07/26/19 20:06 Course Orders Ordered: ED Orders 07/26/19 20:09 XR chest 1V Stat 07/26/19 20:35 Complete Blood Count AUTO DIFF Stat Comprehensive Metabolic Panel Stat Lactate (Lactic Acid) Stat Procalcitonin Stat 07/26/19 20:45 Blood Culture Stat 07/26/19 21:00 Influenza A & B (PCR) Stat Discontinued Medications Acetaminophen (Tylenol) 650 mg PO NOW ONE Stop: 07/26/19 20:45 Last Admin: 07/26/19 20:51 Dose: 650 mg Documented by: JOSÉ MIGUEL Sodium Chloride (Normal Saline 0.9%) 1,000 mls @ 1,000 mls/hr IV BOLUS ONE Stop: 07/26/19 21:43 Last Infusion: 07/26/19 22:35 Dose: 0 mls/hr Documented by: JOSÉ MIGUEL Admin: 07/26/19 20:52 Dose: 1,000 mls/hr Documented by: JOSÉ MIGUEL Ceftriaxone Sodium/Dextrose (Rocephin) 1 gm in 50 mls @ 100 mls/hr IV NOW ONE Stop: 07/26/19 21:17 Last Infusion: 07/26/19 21:33 Dose: 0 mls/hr Documented by: JOSÉ MIGUEL Admin: 07/26/19 21:06 Dose: 100 mls/hr Documented by: JOSÉ MIGUEL Methylprednisolone (Solu-Medrol 125 Mg Vial) 125 mg IV NOW ONE Stop: 07/26/19 20:45 Last Admin: 07/26/19 20:51 Dose: 125 mg Documented by: JOSÉ MIGUEL Oseltamivir Phosphate (Tamiflu) 75 mg PO NOW ONE Stop: 07/26/19 22:19 Last Admin: 07/26/19 22:35 Dose: 75 mg Documented by: JOSÉ MIGUEL Vital Signs Vital signs: Vital Signs - 8 hr 07/26/19 20:06 07/26/19 20:51 07/26/19 21:08 Temperature 100.1 F H 100.5 F H Pulse Rate 114 H 103 H Respiratory Rate 22 26 H Blood Pressure 113/70 Blood Pressure [Right Arm] 129/80 Pulse Oximetry 99 96 07/26/19 22:45 Temperature Pulse Rate 91 H Respiratory Rate 18 Blood Pressure 123/61 Blood Pressure [Right Arm] Pulse Oximetry 98 MDM - Fever Lab Data Attestation: I reviewed the patient's lab results. Result diagrams: 07/26/19 20:35 07/26/19 20:35 Labs: Lab Results 07/26/19 07/26/19 07/26/19 Range/Units 20:35 20:35 20:35 WBC 7.1 (4.5-11.0) X10^3/uL RBC 4.38 (4.0-5.2) X10^6/uL Hgb 12.9 (12.0-16.0) g/dL Hct 38.5 (36-46) % MCV 87.8 (80-100) fL MCH 29.4 (26-34) PG MCHC 33.5 (30-36) % RDW 13.1 (11.6-14.8) % Plt Count 353 (150-400) X10^3/uL Neut % (Auto) 78.3 H (50-75) % Lymph % (Auto) 15.0 L (25-40) % Luna % (Auto) 5.4 (3-14) % Eos % (Auto) 0.8 L (2-4) % Baso % (Auto) 0.5 (0-2) % Neut # (Auto) 5600 (3777-7986) /uL Lymph # (Auto) 1100 (5733-1971) /uL Luna # (Auto) 400 (0-900) /uL Eos # (Auto) 100 (0-450) /uL Baso # (Auto) 0 (0-100) /uL Sodium 137 (137-145) mmol/L Potassium 3.8 (3.4-5.1) mmol/L Chloride 101 (98-107) mmol/L Carbon Dioxide 26 (22-32) mmol/L BUN 19 H (7-17) mg/dL Creatinine 0.75 (0.52-1.04) mg/dL Estimated GFR > 60.0 (>60) mL/min BUN/Creatinine Ratio 25.3 H (6-22) Glucose 171 H (70-100) mg/dL Lactate (0.7-2.1) mmol/L Calcium 9.7 (8.4-10.2) mg/dL Total Bilirubin 0.4 (0.2-1.3) mg/dL AST 40 H (14-36) IU/L ALT 39 H (<35) IU/L Alkaline Phosphatase 84 (38-126) U/L Total Protein 8.5 H (6.3-8.2) g/dL Albumin 4.6 (3.5-5.0) g/dL Globulin 3.9 (1.7-4.1) g/dL Albumin/Globulin Ratio 1.2 (1.0-2.8) Procalcitonin < 0.05 (<0.5) ng/mL Influenza A (RT-PCR) (NEGATIVE) Influenza B (RT-PCR) (NEGATIVE) 07/26/19 07/26/19 Range/Units 20:35 21:00 WBC (4.5-11.0) X10^3/uL RBC (4.0-5.2) X10^6/uL Hgb (12.0-16.0) g/dL Hct (36-46) % MCV (80-100) fL MCH (26-34) PG MCHC (30-36) % RDW (11.6-14.8) % Plt Count (150-400) X10^3/uL Neut % (Auto) (50-75) % Lymph % (Auto) (25-40) % Luna % (Auto) (3-14) % Eos % (Auto) (2-4) % Baso % (Auto) (0-2) % Neut # (Auto) (6738-2225) /uL Lymph # (Auto) (1051-9885) /uL Luna # (Auto) (0-900) /uL Eos # (Auto) (0-450) /uL Baso # (Auto) (0-100) /uL Sodium (137-145) mmol/L Potassium (3.4-5.1) mmol/L Chloride (98-107) mmol/L Carbon Dioxide (22-32) mmol/L BUN (7-17) mg/dL Creatinine (0.52-1.04) mg/dL Estimated GFR (>60) mL/min BUN/Creatinine Ratio (6-22) Glucose (70-100) mg/dL Lactate 1.9 (0.7-2.1) mmol/L Calcium (8.4-10.2) mg/dL Total Bilirubin (0.2-1.3) mg/dL AST (14-36) IU/L ALT (<35) IU/L Alkaline Phosphatase (38-126) U/L Total Protein (6.3-8.2) g/dL Albumin (3.5-5.0) g/dL Globulin (1.7-4.1) g/dL Albumin/Globulin Ratio (1.0-2.8) Procalcitonin (<0.5) ng/mL Influenza A (RT-PCR) Flu a positive H (NEGATIVE) Influenza B (RT-PCR) Flu b negative (NEGATIVE) Imaging Data Chest x-ray: Radiologist's Impression: [address] [address] XRay Report Signed Patient: Shama Garland JMR#: [id number] : 1965Acct:[id number] Age/Sex: 54 / FDate of Service: 07/26/19 Loc: ED Accession Number: [id number] Procedure: XR chest 1V Ordering Provider: Yovana Musa D.O. PROCEDURE: XR CHEST 1V INDICATIONS: soa/fever/cough TECHNIQUE: One view of the chest was acquired. COMPARISON: None. FINDINGS: Surgical changes and devices: None. Lungs and pleura: Lungs are abnormal, with a mild alveolar infiltration pattern slightly greater on the left than the right. However, this is in the setting of reduced inspiratory volume.. No pleural effusions or pneumothorax. Mediastinum: Mediastinal contours appear normal. Heart size is normal. Bones and chest wall: No suspicious bony lesions. Overlying soft tissues appear unremarkable. IMPRESSION: Reduced inspiratory volume, suspect mild or early pneumonia at each lung base, left slightly greater than right. Dictated by: Melvin Terry M.D. on 07/26/2019 at 20:42 Approved by: Melvin Terry M.D. on 07/26/2019 at 20:43 [facility] Narrative Medical decision making narrative: Patient comes in appears to have pneumonia on chest x-ray, influenza swab is positive heart rate has improved to the 90s, patient's white count is 7 with left shift. Chemistry shows a BUN of 19 with slightly elevated AST and ALT and a total protein of 8.5 and glucose of 171. Procalcitonin is negative. With patient's recent influenza swab positive will treat her with Tamiflu, prednisone as she does have a history of asthma and has been more wheezy lately. She states she is out of albuterol so given a prescription as well as a spacer with training by RT. Discussed signs and symptoms to watch for that there is a risk for post influenza pneumonia that does require antibiotic so she is not improving she should be re-evaluated. Patient feels comfortable with this plan. She is feeling much better at this time. Discharge Plan Departure Patient Disposition: Home Clinical Impression: Influenza A Pneumonia Qualifiers: Pneumonia type: due to influenza A virus Laterality: bilateral Lung location: lower lobe of lung Qualified Code(s): J11.00 - Influenza due to unidentified influenza virus with unspecified type of pneumonia Discharge Date/Time: 07/26/19 22:46 Instructions: DI for Influenza -- Adult Activity Restrictions/Additional Instructions: Follow-up with your physician in the next 48 hours for recheck. Your labs today show your positive for influenza, and also appears to have developed a pneumonia on her chest x-ray. Continue steroids until completely gone, use albuterol 1-2 puffs every 4 hours as needed for wheezing. I would recommend taking Tamiflu twice daily x5 days. Return to the emergency department if he continued to have fevers, new or worsening chest pain, shortness of breath, lightheadedness or passing out, persistent vomiting, swelling in her extremities or other new or concerning symptoms. Prescriptions: New prednisone 50 mg tablet 50 mg PO DAILY Qty: 5 RF: 0 oseltamivir [Tamiflu] 75 mg capsule 75 mg PO BID 5 Days Qty: 10 RF: 0 albuterol sulfate 90 mcg/actuation HFA aerosol inhaler 2 puff INHALATION Q4-6H PRN (Reason: shortness of breath or wheezing) Qty: 8 RF: 0 No Action hydrocodone-acetaminophen 5-325 mg tablet 1 tab PO Q4-6H PRN (Reason: pain) Qty: 10 RF: 0 Referrals: Ira Demarco DO [Primary Care Provider] -
[2019-07-26 20:45] LABS: Add Manual Diff / Slide Review NO; Basophils Absolute Auto 0 /uL (0-100); Basophils Percent Auto 0.5 % (0-2); Eosinophils Absolute Auto 100 /uL (0-450); Eosinophils Percent Auto 0.8 % (2-4); Hematocrit 38.5 % (36-46); Hemoglobin 12.9 g/dL (12.0-16.0); Lymphocytes Absolute Auto 1100 /uL (1100-4500); Mean Corpuscular HGB Conc 33.5 % (30-36); Mean Corpuscular Hemoglobin 29.4 PG (26-34); Mean Corpuscular Volume 87.8 fL (80-100); Monocytes Absolute Auto 400 /uL (0-900); Monocytes Percent Auto 5.4 % (3-14); Neutrophils Absolute Auto 5600 /uL (1500-7000); Neutrophils Percent Auto 78.3 % (50-75); Platelet Count 353 X10^3/uL (150-400); Red Blood Cell Count 4.38 X10^6/uL (4.0-5.2); Red Cell Distribution Width 13.1 % (11.6-14.8); White Blood Cell Count 7.1 X10^3/uL (4.5-11.0)
[2019-07-26 20:51] VITALS: TEMP 38.1
[2019-07-26] MEDS: ACETAMINOPHEN 325 MG TABLET 650 MG PO (20:51)
[2019-07-26] MEDS: methylPREDNISolone 125 MG/2 ML VIAL IV (20:51)
[2019-07-26] MEDS: SODIUM CHLORIDE 0.9% 1,000 ML 1000 ML IV (20:52)
[2019-07-26 21:01] LABS: Alanine Aminotransferase 39 IU/L (<35); Albumin 4.6 g/dL (3.5-5.0); Albumin Globulin Ratio 1.2 (1.0-2.8); Alkaline Phosphatase 84 U/L (38-126); Aspartate Aminotransferase 40 IU/L (14-36); BUN Creatinine Ratio 25.3 (6-22); Bilirubin Total 0.4 mg/dL (0.2-1.3); Blood Urea Nitrogen 19 mg/dL (7-17); Calcium 9.7 mg/dL (8.4-10.2); Carbon Dioxide 26 mmol/L (22-32); Chloride 101 mmol/L (98-107); Estimated Glomerular Filt Rate > 60.0 mL/min (>60); Globulin 3.9 g/dL (1.7-4.1); Glucose 171 mg/dL (70-100); HEMOLYSIS 32 (0-50); Potassium 3.8 mmol/L (3.4-5.1); Sodium 137 mmol/L (137-145); Total Protein 8.5 g/dL (6.3-8.2)
[2019-07-26 21:02] LABS: Lactate (Lactic Acid) 1.9 mmol/L (0.7-2.1)
[2019-07-26] MEDS: CEFTRIAXONE 1 GM/50 ML FROZ.PIGGY IV (21:06)
[2019-07-26 21:08] VITALS: BP 129/80; PULSE 103; RESP 26; O2SAT 96
[2019-07-26 21:21] LABS: Procalcitonin < 0.05 ng/mL (<0.5)
[2019-07-26 21:35] LABS: Influenza A - CEPHEID Flu A POSITIVE (NEGATIVE); Influenza B - CEPHEID Flu B NEGATIVE (NEGATIVE)
[2019-07-26] MEDS: OSELTAMIVIR 75 MG CAPSULE PO (22:35)
[2019-07-26 22:45] VITALS: BP 123/61; PULSE 91; RESP 18; O2SAT 98
== END 2019-07-26 22:46 | disposition home or self-care (01) ==
PROVIDERS: Emergency Provider Emergency Medicine; PCP Family Medicine
DX: J11.00 Influenza due to unidentified influenza virus with unspecified type of pneumonia (principal)
CPT/HCPCS: 36415; 71045; 80053; 83605; 84145; 85025; 87040; 87502; 96361; 96365; 96375; 99284; J2930

== ENCOUNTER → 2021-04-20 13:55 | Outpatient (CLI) | payer OTHER, MEDICAID, SELFPAY ==
--- NOTE | 2021-04-20 13:58 | DI.MRI.S_ITS ---
PROCEDURE: MR SHOULDER LT WO CON INDICATIONS: Pain in left shoulder TECHNIQUE: Noncontrast oblique coronal T2 fast spin echo with fat saturation, oblique sagittal T1 spin echo and T2 fast spin echo with fat saturation, axial T1 spin echo and T2 fast spin echo with fat saturation through the shoulder. COMPARISON: [facility], MR, MR SHOULDER LEFT WITHOUT CONTRAST, 10/28/2018, 7:52. [facility], CR, XR SHOULDER 2+ VIEWS LEFT, 03/03/2020, 6:57. FINDINGS: Image quality: Excellent. Rotator cuff: The previously seen low T2 signal intensity focus involving the infraspinatus tendon is no longer present. There are a few small regions of bursal surface high T2 signal intensity involving the mid/posterior supraspinatus tendon at the humeral insertion site extending the musculotendinous junction. Foci of bursal surface T2 signal elevation within the mid and posterior infraspinatus tendon at the humeral insertion site. Subscapularis and teres minor tendons are intact. No rotator cuff atrophy. Bones and bursae: No bone marrow contusions or fractures. Moderate acromioclavicular joint degeneration. The acromion demonstrates conventional anatomy, without an os acromiale. No pathologic subacromial-subdeltoid or subcoracoid bursal fluid is present. Capsule and soft tissues: Labrum is grossly intact The long head of the biceps tendon demonstrates normal location and morphology. The rotator interval appears normal, without fibrosis. The coracohumeral ligament is normal in thickness. IMPRESSION: 1. Resolution of previously seen calcific tendinitis of the infraspinatus. 2. Low-grade partial-thickness tears of the supraspinatus and infraspinatus tendons. 3. Acromioclavicular joint osteoarthritis. Dictated by: Lily Anderson M.D. on 04/20/2021 at 15:07 Approved by: Lily Anderson M.D. on 04/20/2021 at 15:10
== END ==
PROVIDERS: PCP Family Medicine; Referring Provider Physician Assistant Surgical; Visit Provider Physician Assistant Surgical
DX: M75.112 Incomplete rotator cuff tear or rupture of left shoulder, not specified as traumatic (principal); M25.512 Pain in left shoulder; M19.012 Primary osteoarthritis, left shoulder
CPT/HCPCS: 73221

== ENCOUNTER 2022-03-12 07:30 | Outpatient (RCR) | payer OTHER, MEDICAID, SELFPAY ==
--- NOTE | 2021-12-24 19:15 | PT.OIE ---
Current Diagnoses Strain of muscle(s) and tendon(s) of the rotator cuff of left shoulder, subsequent encounter (12/24/21) Past Medical History (Last Updated 07/26/19 @ 20:46 by Yovana Musa DO) Asthma Visit Care Team Role Provider Type Phoenix Rosa PA-C Attending Provider Non-Staff Family Provider Primary Care Provider Referring Provider Specialty: Medical Address: [address] [place] [address], [id number] Phone: Email: Physical Therapy Initial Evaluation PT-OP-A Visit Information Start: 12/13/21 18:02 Freq: Status: Active Protocol: Document 12/24/21 16:48 [facility] (Rec: 12/24/21 18:17 [facility] [id number]) Out-Patient Physical Therapy Visit Information Visit Information Visit Type Initial Evaluation Visit Note 24 visits per year Visit Start Time 16:50 Visit Stop Time 17:45 Total Visit Minutes 55 Visit Number 1 Number of CARGO HANDLER Visits 0 PT-OP-B Current Condition Start: 12/13/21 18:02 Freq: Status: Active Protocol: Document 12/24/21 16:48 [facility] (Rec: 12/24/21 18:17 [facility] [id number]) Current Condition History of Current Condition Onset Date September 19 Current Complaints L shoulder RCR History of Current Condition Pt did PT for about a month or so with no improvement after a fall fwd into her arms around 4 years ago. R shoulder gives her trouble too . Pt reports fingers would get numb at night so she went ahead w/surgery. She gets less numbess in her hands now but it is still a problem. Pt has been the wall crawls, but does have good ROM. She saw JOSEFA for follow up about a month after but cancelled her follow up d /t not in w/PT yet. 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 She did follow her restrictions well from surgeon's office early on. Was getting neck pain earlier in recovery but not anymore. Pt reports she has to be very careful w/ movement. Pt R handed. Treatment Goals Patient/Caregiver Goals Be able lift kids, be able to lift overhead, be able to sleep on L side, be able to not feel like she has to be careful, be able to play w/6 y .o. w/o concern or limit. PT-OP-C Subjective Start: 12/13/21 18:02 Freq: Status: Active Protocol: Document 12/24/21 16:48 [facility] (Rec: 12/24/21 18:17 [facility] [id number]) Patient Questionnaires Quick Dash- Upper Extremity Quick Dash UE Score 45.45 OP-PT Pain Assessment Location L shoulder Pain Location Details L lat shoulder Intensity 8 Scale Used Numeric (0 - 10) Description Aching,Sharp,With Movement Description- Other sharp then ache Frequency Frequent Pain Duration within 30 sec of movement; will ache constant at night if did a lot Radiating Location tingling in fingers (believes its the 3-5th) Pain Aggravating Factors ADL's,Lifting Other Pain Aggravating Factors step down w/jarring, reach across/up Pain Alleviating Factors Inactivity PT-OP-F Manual Assessment Start: 12/13/21 18:02 Freq: Status: Active Protocol: Document 12/24/21 16:48 [facility] (Rec: 12/24/21 18:17 [facility] [id number]) Manual Assessments Soft Tissue Assessment Soft Tissue Mobility Assessment tightness in pec, biceps, deltoid, scar adherance, infra & supraspinatus tightness, scalenes, UT, LS Joint Mobility Assessment Joint Mobility Assessment tightness in GH capsule w/hard end feels w/PROM PT-OP-J Posture/Palpation/Skin Start: 12/13/21 18:02 Freq: Status: Active Protocol: Document 12/24/21 16:48 [facility] (Rec: 12/24/21 18:17 [facility] [id number]) Posture Evaluation Yoel Postural Classification System [facility] Postural Classifications Posterior/Posterior Elbow Flexion Test 0 Comments Posture Comments ant tipped scap, abd, elevated scap, IR of UE L>R, slight inc kyphosis & ant neck PT-OP-K Range of Motion Start: 12/13/21 18:02 Freq: Status: Active Protocol: Document 12/24/21 16:48 [facility] (Rec: 12/24/21 18:17 [facility] [id number]) Shoulder Goniometric Range of Motion Shoulder Left Passive Testing Position Supine Flexion 120 Abduction 80 External Rotation at 45 degrees 36 Abduction External Rotation at 0 degrees Abduction 11 Internal Rotation 45 Comments IR measured in scapular plane Right Active Flexion 162 Extension 67 Abduction 180 External Rotation at 0 degrees Abduction 69 Internal Rotation Behind Back (text) T6 Left Active Testing Position Standing Flexion 99 Extension 34 Abduction 49 External Rotation at 0 degrees Abduction 19 Internal Rotation Behind Back (text) lat inf buttock PT-OP-M Strength Start: 12/13/21 18:02 Freq: Status: Active Protocol: Document 12/24/21 16:48 [facility] (Rec: 12/24/21 18:17 [facility] [id number]) Shoulder Strength Shoulder Manual Muscle Testing Left Flexion 3+ Fair+ Extension 3+ Fair+ Abduction (C5) 2+ Poor+ External Rotation 3 Fair Internal Rotation 3 Fair Comments pain w/resistance Right Flexion 5 Normal Extension 5 Normal Abduction (C5) 5 Normal External Rotation 5 Normal Internal Rotation 5 Normal Elbow/Forearm Strength Elbow and Forearm Manual Muscle Testing Left Flexion (C6) 4- Good- Extension (C7) 4- Good- Pronation 4- Good- Supination 4- Good- Right Flexion (C6) 5 Normal Extension (C7) 5 Normal Pronation 5 Normal Supination 5 Normal Hand Scheduler Conveyor/Pinch Strength Hand Dominance Hand Dominance Right Hand Strength Right Comments 31kg, 34 kg, 29 kg Left Comments 25lb, 22kg,24kg PT-OP-Q Treatments Start: 12/13/21 18:02 Freq: Status: Active Protocol: Document 12/24/21 16:48 [facility] (Rec: 12/24/21 18:17 [facility] [id number]) Therapeutic Exercises Supine Exercises ER Supine Exercise Name at side AAROM Side left Equipment Used cane Reps/Minutes 15 x5 sec hold flex Supine Exercise Name AAROM Side left Equipment Used cane Reps/Minutes 15 x5 sec hold Standing Exercises IR Standing Exercise Name behind back AAROM Side bilateral Equipment Used Cane Reps/Minutes 15 x5 sec hold ext Standing Exercise Name AAROM w/cane Side left Equipment Used cane Reps/Minutes 15 x5 sec hold PT-OP-R Modalities Start: 12/13/21 18:02 Freq: Status: Active Protocol: Document 12/24/21 16:48 [facility] (Rec: 12/24/21 18:17 [facility] [id number]) Hot Pack/Cold Pack Treatment CP Location L shoulder Patient Position Supine Treatment Duration (minutes) 10 PT-OP-T Assessment and Plan Start: 12/13/21 18:02 Freq: Status: Active Protocol: Document 12/24/21 16:48 [facility] (Rec: 12/24/21 18:17 [facility] [id number]) Physical Therapy Assessment Rehab Potential Rehabilitation Potential Fair Evaluation Complexity Number of Personal Factors/Comorbidities 3 or More Number of Body Systems Impaired 4 or More Clinical Presentation at Evaluation Evolving Impairments Impairments Activity Tolerance,Functional Activities,Functional Mobility ,Pain,Posture,ROM,Soft Tissue Mobility,Strength Goals functional Short Term Goal (STG) Pt will be able to sleep on L side comfortably STG Duration 02/23/22 Skilled Nursing Goal (LTG) 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 LTG Duration 03/26/22 strength Short Term Goal (STG) Pt will be indep w/HEP STG Duration 02/15/22 Skilled Nursing Goal (LTG) Pt will score 5/5 on EFT and MMT of L shoulder and elbow w/ o pain in order to allow her to do her typical fucntional activities w/o pain or weakness. LTG Duration 03/26/22 ROM Short Term Goal (STG) Pt will improve AROM L flex to at least 120, Abd to 90 and ext to 45 to allow greater reaching ability. STG Duration 02/15/22 Electronic Warfare Technician Goal (LTG) Pt will have w/in 90% range of RUE AROM in L shoulder to allow for her to do ADLs, and job related activtiies w/o restriction LTG Duration 03/26/22 quick DASH Impairment 45.45 Short Term Goal (STG) Pt will improve quick dash score to no greater than 32 to show impoved functional ability. STG Duration 02/15/22 Skilled Nursing Goal (LTG) Pt will improve quick dash score to no greater than 12 to show impoved functional ability. LTG Duration 03/27/22 Assessment Summary Assessment Pt presents 3 months s/p RCR per pt and referral noting decompression/debridement, but no surgical report was sent from provider office. Pt has not received any PT since surgery and is only doing wall crawl exercise given by provider office. She has significantly limited ROM and has hard end feels with PROM w /pain at end range indicating possible frozen shoulder d/t dec mobility. She has limited strength and is very limited by pain and limited in functional ability d/t pain. Pt to complete PT for strength , ROM, dec pain and imrpovement of functional mobility. Physical Therapy Plan Frequency and Duration Frequency of Treatment 1-2x/week Duration of Treatment 3 months Plan of Care Start Date 12/24/21 Plan of Care End Date 03/26/22 Therapeutic Interventions Therapeutic Interventions Aquatic Therapy,Home Exercise Program,Joint Mobilizations, Manual Therapy,Neuromuscular Re-education,Orthotic/ Prosthetic Management,Patient/ Caregiver Education,Self-Care/ Home Management,Soft Tissue Mobilization,Taping, Therapeutic Activities, Therapeutic Exercises Modalities Cold Pack/Ice Massage,Electric Stimulation,Hot Packs, Infrared Therapy,Ultrasound Next Visit Focus/Plan Next Note Type Treatment Note Next Visit Plan UBE, pulleys, review AAROM, further AAROM exercises, GH joint mobs, pec/scap/UT/LS STM
--- NOTE | 2021-12-24 19:16 | PT.OPPOC ---
Physical, Occupational & Speech Therapy At [facility] Current Diagnoses Strain of muscle(s) and tendon(s) of the rotator cuff of left shoulder, subsequent encounter (12/24/21) Visit Care Team Role Provider Type Phoenix Rosa PA-C Attending Provider Non-Staff Family Provider Primary Care Provider Referring Provider Specialty: Medical Address: [address] [place] [address], [id number] Phone: Email: Plan Of Care PT-OP-T Assessment and Plan Start: 12/13/21 18:02 Freq: Status: Active Protocol: Document 12/24/21 16:48 [facility] (Rec: 12/24/21 18:17 [facility] [id number]) Physical Therapy Assessment Rehab Potential Rehabilitation Potential Fair Evaluation Complexity Number of Personal Factors/Comorbidities 3 or More Number of Body Systems Impaired 4 or More Clinical Presentation at Evaluation Evolving Impairments Impairments Activity Tolerance,Functional Activities,Functional Mobility ,Pain,Posture,ROM,Soft Tissue Mobility,Strength Goals functional Short Term Goal (STG) Pt will be able to sleep on L side comfortably STG Duration 02/23/22 Exterminator Goal (LTG) 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 LTG Duration 03/26/22 strength Short Term Goal (STG) Pt will be indep w/HEP STG Duration 02/15/22 Exterminator Goal (LTG) Pt will score 5/5 on EFT and MMT of L shoulder and elbow w/ o pain in order to allow her to do her typical fucntional activities w/o pain or weakness. LTG Duration 03/26/22 ROM Short Term Goal (STG) Pt will improve AROM L flex to at least 120, Abd to 90 and ext to 45 to allow greater reaching ability. STG Duration 02/15/22 Retirement Goal (LTG) Pt will have w/in 90% range of RUE AROM in L shoulder to allow for her to do ADLs, and job related activtiies w/o restriction LTG Duration 03/26/22 quick DASH Impairment 45.45 Short Term Goal (STG) Pt will improve quick dash score to no greater than 32 to show impoved functional ability. STG Duration 02/15/22 Retirement Goal (LTG) Pt will improve quick dash score to no greater than 12 to show impoved functional ability. LTG Duration 03/27/22 Assessment Summary Assessment Pt presents 3 months s/p RCR per pt and referral noting decompression/debridement, but no surgical report was sent from provider office. Pt has not received any PT since surgery and is only doing wall crawl exercise given by provider office. She has significantly limited ROM and has hard end feels with PROM w /pain at end range indicating possible frozen shoulder d/t dec mobility. She has limited strength and is very limited by pain and limited in functional ability d/t pain. Pt to complete PT for strength , ROM, dec pain and imrpovement of functional mobility. Physical Therapy Plan Frequency and Duration Frequency of Treatment 1-2x/week Duration of Treatment 3 months Plan of Care Start Date 12/24/21 Plan of Care End Date 03/26/22 Therapeutic Interventions Therapeutic Interventions Aquatic Therapy,Home Exercise Program,Joint Mobilizations, Manual Therapy,Neuromuscular Re-education,Orthotic/ Prosthetic Management,Patient/ Caregiver Education,Self-Care/ Home Management,Soft Tissue Mobilization,Taping, Therapeutic Activities, Therapeutic Exercises Modalities Cold Pack/Ice Massage,Electric Stimulation,Hot Packs, Infrared Therapy,Ultrasound Next Visit Focus/Plan Next Note Type Treatment Note Next Visit Plan UBE, pulleys, review AAROM, further AAROM exercises, GH joint mobs, pec/scap/UT/LS STM Plan of Care Dates Plan of Care Start Date 12/24/21 Plan of Care End Date 03/26/22 Electronically Signed by: Nereida Mark, PT 12/25/21 2396 If you are in agreement with this Plan of Care, please return a signed and dated copy. I have reviewed this Plan of Care and certify that the skilled therapy services above are required to meet the patient?s needs. Physician Signature Date Printed Name and Credentials Clinical Instructor Signature Printed Name and Credentials
--- NOTE | 2021-12-25 19:15 | PT.OIE ---
Current Diagnoses Strain of muscle(s) and tendon(s) of the rotator cuff of left shoulder, subsequent encounter (12/24/21) Past Medical History (Last Updated 07/26/19 @ 20:46 by Yovana Musa DO) Asthma Visit Care Team Role Provider Type Phoenix Rosa PA-C Attending Provider Non-Staff Family Provider Primary Care Provider Referring Provider Specialty: Medical Address: [address] [place] [address], [phone] Phone: Email: Physical Therapy Initial Evaluation PT-OP-A Visit Information Start: 12/13/21 18:02 Freq: Status: Active Protocol: Document 12/24/21 16:48 [facility] (Rec: 12/24/21 18:17 [facility] [id number]) Out-Patient Physical Therapy Visit Information Visit Information Visit Type Initial Evaluation Visit Note 24 visits per year Visit Start Time 16:50 Visit Stop Time 17:45 Total Visit Minutes 55 Visit Number 1 Number of DIRECTOR [employer]CHO[employer] Visits 0 PT-OP-B Current Condition Start: 12/13/21 18:02 Freq: Status: Active Protocol: Document 12/24/21 16:48 [facility] (Rec: 12/24/21 18:17 [facility] [id number]) Current Condition History of Current Condition Onset Date September 19 Current Complaints L shoulder RCR History of Current Condition Pt did PT for about a month or so with no improvement after a fall fwd into her arms around 4 years ago. R shoulder gives her trouble too . Pt reports fingers would get numb at night so she went ahead w/surgery. She gets less numbess in her hands now but it is still a problem. Pt has been the wall crawls, but does have good ROM. She saw JOSEFA for follow up about a month after but cancelled her follow up d /t not in w/PT yet. 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 She did follow her restrictions well from surgeon's office early on. Was getting neck pain earlier in recovery but not anymore. Pt reports she has to be very careful w/ movement. Pt R handed. Treatment Goals Patient/Caregiver Goals Be able lift kids, be able to lift overhead, be able to sleep on L side, be able to not feel like she has to be careful, be able to play w/6 y .o. w/o concern or limit. PT-OP-C Subjective Start: 12/13/21 18:02 Freq: Status: Active Protocol: Document 12/24/21 16:48 [facility] (Rec: 12/24/21 18:17 [facility] [id number]) Patient Questionnaires Quick Dash- Upper Extremity Quick Dash UE Score 45.45 OP-PT Pain Assessment Location L shoulder Pain Location Details L lat shoulder Intensity 8 Scale Used Numeric (0 - 10) Description Aching,Sharp,With Movement Description- Other sharp then ache Frequency Frequent Pain Duration within 30 sec of movement; will ache constant at night if did a lot Radiating Location tingling in fingers (believes its the 3-5th) Pain Aggravating Factors ADL's,Lifting Other Pain Aggravating Factors step down w/jarring, reach across/up Pain Alleviating Factors Inactivity PT-OP-F Manual Assessment Start: 12/13/21 18:02 Freq: Status: Active Protocol: Document 12/24/21 16:48 [facility] (Rec: 12/24/21 18:17 [facility] [id number]) Manual Assessments Soft Tissue Assessment Soft Tissue Mobility Assessment tightness in pec, biceps, deltoid, scar adherance, infra & supraspinatus tightness, scalenes, UT, LS Joint Mobility Assessment Joint Mobility Assessment tightness in GH capsule w/hard end feels w/PROM PT-OP-J Posture/Palpation/Skin Start: 12/13/21 18:02 Freq: Status: Active Protocol: Document 12/24/21 16:48 [facility] (Rec: 12/24/21 18:17 [facility] [id number]) Posture Evaluation Yoel Postural Classification System [facility] Postural Classifications Posterior/Posterior Elbow Flexion Test 0 Comments Posture Comments ant tipped scap, abd, elevated scap, IR of UE L>R, slight inc kyphosis & ant neck PT-OP-K Range of Motion Start: 12/13/21 18:02 Freq: Status: Active Protocol: Document 12/24/21 16:48 [facility] (Rec: 12/24/21 18:17 [facility] [id number]) Shoulder Goniometric Range of Motion Shoulder Left Passive Testing Position Supine Flexion 120 Abduction 80 External Rotation at 45 degrees 36 Abduction External Rotation at 0 degrees Abduction 11 Internal Rotation 45 Comments IR measured in scapular plane Right Active Flexion 162 Extension 67 Abduction 180 External Rotation at 0 degrees Abduction 69 Internal Rotation Behind Back (text) T6 Left Active Testing Position Standing Flexion 99 Extension 34 Abduction 49 External Rotation at 0 degrees Abduction 19 Internal Rotation Behind Back (text) lat inf buttock PT-OP-M Strength Start: 12/13/21 18:02 Freq: Status: Active Protocol: Document 12/24/21 16:48 [facility] (Rec: 12/24/21 18:17 [facility] [id number]) Shoulder Strength Shoulder Manual Muscle Testing Left Flexion 3+ Fair+ Extension 3+ Fair+ Abduction (C5) 2+ Poor+ External Rotation 3 Fair Internal Rotation 3 Fair Comments pain w/resistance Right Flexion 5 Normal Extension 5 Normal Abduction (C5) 5 Normal External Rotation 5 Normal Internal Rotation 5 Normal Elbow/Forearm Strength Elbow and Forearm Manual Muscle Testing Left Flexion (C6) 4- Good- Extension (C7) 4- Good- Pronation 4- Good- Supination 4- Good- Right Flexion (C6) 5 Normal Extension (C7) 5 Normal Pronation 5 Normal Supination 5 Normal Hand Wafer Machine Operator/Pinch Strength Hand Dominance Hand Dominance Right Hand Strength Right Comments 31kg, 34 kg, 29 kg Left Comments 25lb, 22kg,24kg PT-OP-Q Treatments Start: 12/13/21 18:02 Freq: Status: Active Protocol: Document 12/24/21 16:48 [facility] (Rec: 12/24/21 18:17 [facility] [id number]) Therapeutic Exercises Supine Exercises ER Supine Exercise Name at side AAROM Side left Equipment Used cane Reps/Minutes 15 x5 sec hold flex Supine Exercise Name AAROM Side left Equipment Used cane Reps/Minutes 15 x5 sec hold Standing Exercises IR Standing Exercise Name behind back AAROM Side bilateral Equipment Used Cane Reps/Minutes 15 x5 sec hold ext Standing Exercise Name AAROM w/cane Side left Equipment Used cane Reps/Minutes 15 x5 sec hold PT-OP-R Modalities Start: 12/13/21 18:02 Freq: Status: Active Protocol: Document 12/24/21 16:48 [facility] (Rec: 12/24/21 18:17 [facility] [id number]) Hot Pack/Cold Pack Treatment CP Location L shoulder Patient Position Supine Treatment Duration (minutes) 10 PT-OP-T Assessment and Plan Start: 12/13/21 18:02 Freq: Status: Active Protocol: Document 12/24/21 16:48 [facility] (Rec: 12/24/21 18:17 [facility] [id number]) Physical Therapy Assessment Rehab Potential Rehabilitation Potential Fair Evaluation Complexity Number of Personal Factors/Comorbidities 3 or More Number of Body Systems Impaired 4 or More Clinical Presentation at Evaluation Evolving Impairments Impairments Activity Tolerance,Functional Activities,Functional Mobility ,Pain,Posture,ROM,Soft Tissue Mobility,Strength Goals functional Short Term Goal (STG) Pt will be able to sleep on L side comfortably STG Duration 02/23/22 Correction Goal (LTG) 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 LTG Duration 03/26/22 strength Short Term Goal (STG) Pt will be indep w/HEP STG Duration 02/15/22 Correction Goal (LTG) Pt will score 5/5 on EFT and MMT of L shoulder and elbow w/ o pain in order to allow her to do her typical fucntional activities w/o pain or weakness. LTG Duration 03/26/22 ROM Short Term Goal (STG) Pt will improve AROM L flex to at least 120, Abd to 90 and ext to 45 to allow greater reaching ability. STG Duration 02/15/22 Assistant Editor Goal (LTG) Pt will have w/in 90% range of RUE AROM in L shoulder to allow for her to do ADLs, and job related activtiies w/o restriction LTG Duration 03/26/22 quick DASH Impairment 45.45 Short Term Goal (STG) Pt will improve quick dash score to no greater than 32 to show impoved functional ability. STG Duration 02/15/22 Correction Goal (LTG) Pt will improve quick dash score to no greater than 12 to show impoved functional ability. LTG Duration 03/27/22 Assessment Summary Assessment Pt presents 3 months s/p RCR per pt and referral noting decompression/debridement, but no surgical report was sent from provider office. Pt has not received any PT since surgery and is only doing wall crawl exercise given by provider office. She has significantly limited ROM and has hard end feels with PROM w /pain at end range indicating possible frozen shoulder d/t dec mobility. She has limited strength and is very limited by pain and limited in functional ability d/t pain. Pt to complete PT for strength , ROM, dec pain and imrpovement of functional mobility. Physical Therapy Plan Frequency and Duration Frequency of Treatment 1-2x/week Duration of Treatment 3 months Plan of Care Start Date 12/24/21 Plan of Care End Date 03/26/22 Therapeutic Interventions Therapeutic Interventions Aquatic Therapy,Home Exercise Program,Joint Mobilizations, Manual Therapy,Neuromuscular Re-education,Orthotic/ Prosthetic Management,Patient/ Caregiver Education,Self-Care/ Home Management,Soft Tissue Mobilization,Taping, Therapeutic Activities, Therapeutic Exercises Modalities Cold Pack/Ice Massage,Electric Stimulation,Hot Packs, Infrared Therapy,Ultrasound Next Visit Focus/Plan Next Note Type Treatment Note Next Visit Plan UBE, pulleys, review AAROM, further AAROM exercises, GH joint mobs, pec/scap/UT/LS STM
--- NOTE | 2021-12-25 19:15 | PT.OPPOC ---
Physical, Occupational & Speech Therapy At [facility] Current Diagnoses Strain of muscle(s) and tendon(s) of the rotator cuff of left shoulder, subsequent encounter (12/24/21) Visit Care Team Role Provider Type Phoenix Rosa PA-C Attending Provider Non-Staff Family Provider Primary Care Provider Referring Provider Specialty: Medical Address: [address] [place] [address], [id number] Phone: Email: Plan Of Care PT-OP-T Assessment and Plan Start: 12/13/21 18:02 Freq: Status: Active Protocol: Document 12/24/21 16:48 [facility] (Rec: 12/24/21 18:17 [facility] [id number]) Physical Therapy Assessment Rehab Potential Rehabilitation Potential Fair Evaluation Complexity Number of Personal Factors/Comorbidities 3 or More Number of Body Systems Impaired 4 or More Clinical Presentation at Evaluation Evolving Impairments Impairments Activity Tolerance,Functional Activities,Functional Mobility ,Pain,Posture,ROM,Soft Tissue Mobility,Strength Goals functional Short Term Goal (STG) Pt will be able to sleep on L side comfortably STG Duration 02/23/22 Jig And Fixture Builder Apprentice Goal (LTG) 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 LTG Duration 03/26/22 strength Short Term Goal (STG) Pt will be indep w/HEP STG Duration 02/15/22 Jig And Fixture Builder Apprentice Goal (LTG) Pt will score 5/5 on EFT and MMT of L shoulder and elbow w/ o pain in order to allow her to do her typical fucntional activities w/o pain or weakness. LTG Duration 03/26/22 ROM Short Term Goal (STG) Pt will improve AROM L flex to at least 120, Abd to 90 and ext to 45 to allow greater reaching ability. STG Duration 02/15/22 Jail Goal (LTG) Pt will have w/in 90% range of RUE AROM in L shoulder to allow for her to do ADLs, and job related activtiies w/o restriction LTG Duration 03/26/22 quick DASH Impairment 45.45 Short Term Goal (STG) Pt will improve quick dash score to no greater than 32 to show impoved functional ability. STG Duration 02/15/22 Jail Goal (LTG) Pt will improve quick dash score to no greater than 12 to show impoved functional ability. LTG Duration 03/27/22 Assessment Summary Assessment Pt presents 3 months s/p RCR per pt and referral noting decompression/debridement, but no surgical report was sent from provider office. Pt has not received any PT since surgery and is only doing wall crawl exercise given by provider office. She has significantly limited ROM and has hard end feels with PROM w /pain at end range indicating possible frozen shoulder d/t dec mobility. She has limited strength and is very limited by pain and limited in functional ability d/t pain. Pt to complete PT for strength , ROM, dec pain and imrpovement of functional mobility. Physical Therapy Plan Frequency and Duration Frequency of Treatment 1-2x/week Duration of Treatment 3 months Plan of Care Start Date 12/24/21 Plan of Care End Date 03/26/22 Therapeutic Interventions Therapeutic Interventions Aquatic Therapy,Home Exercise Program,Joint Mobilizations, Manual Therapy,Neuromuscular Re-education,Orthotic/ Prosthetic Management,Patient/ Caregiver Education,Self-Care/ Home Management,Soft Tissue Mobilization,Taping, Therapeutic Activities, Therapeutic Exercises Modalities Cold Pack/Ice Massage,Electric Stimulation,Hot Packs, Infrared Therapy,Ultrasound Next Visit Focus/Plan Next Note Type Treatment Note Next Visit Plan UBE, pulleys, review AAROM, further AAROM exercises, GH joint mobs, pec/scap/UT/LS STM Plan of Care Dates Plan of Care Start Date 12/24/21 Plan of Care End Date 03/26/22 Electronically Signed by: Nereida Mark, PT 12/25/21 1163 If you are in agreement with this Plan of Care, please return a signed and dated copy. I have reviewed this Plan of Care and certify that the skilled therapy services above are required to meet the patient?s needs. Physician Signature Date Printed Name and Credentials Clinical Instructor Signature Printed Name and Credentials
--- NOTE | 2021-12-27 08:21 | PT.OTN ---
Addendum entered and electronically signed by Patti Morales, BED MACHINE OPERATOR 12/27/21 16:13: Add table slides if tolerated for AAROM, check if knows pendulums. Original Note: Current Diagnoses Strain of muscle(s) and tendon(s) of the rotator cuff of left shoulder, subsequent encounter (12/27/21) Physical Therapy Treatment Note PT-OP-A Visit Information Start: 12/13/21 18:02 Freq: Status: Active Protocol: Document 12/27/21 07:33 SP (Rec: 12/27/21 08:18 SP [id number]) Out-Patient Physical Therapy Visit Information Visit Information Visit Type Treatment Note Visit Note 24 visits per year Visit Start Time 07:33 Visit Stop Time 08:21 Total Visit Minutes 48 Visit Number 2 Number of BED MACHINE OPERATOR Visits 1 Precautions Precautions Debridement/decompression L shld 10/04, protocol in forms/ cards. PT-OP-B Current Condition Start: 12/13/21 18:02 Freq: Status: Active Protocol: Document 12/24/21 16:48 [facility] (Rec: 12/24/21 18:17 [facility] [id number]) Current Condition History of Current Condition Onset Date September 19 Current Complaints L shoulder RCR History of Current Condition Pt did PT for about a month or so with no improvement after a fall fwd into her arms around 4 years ago. R shoulder gives her trouble too . Pt reports fingers would get numb at night so she went ahead w/surgery. She gets less numbess in her hands now but it is still a problem. Pt has been the wall crawls, but does have good ROM. She saw PA for follow up about a month after but cancelled her follow up d /t not in w/PT yet. 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 She starts [employer] on Fri. She did follow her restrictions well from surgeon's office early on. Was getting neck pain earlier in recovery but not anymore. Pt reports she has to be very careful w/ movement. Pt R handed. Treatment Goals Patient/Caregiver Goals Be able lift kids, be able to lift overhead, be able to sleep on L side, be able to not feel like she has to be careful, be able to play w/6 y .o. w/o concern or limit. PT-OP-C Subjective Start: 12/13/21 18:02 Freq: Status: Active Protocol: Document 12/27/21 07:33 SP (Rec: 12/27/21 08:18 SP [id number]) OP-PT Subjective Patient Comments Patient Comments Pt reports sore after last tx but expected it. Stated stiff and pain when wakes up in am. PT-OP-F Manual Assessment Start: 12/13/21 18:02 Freq: Status: Active Protocol: Document 12/24/21 16:48 [facility] (Rec: 12/24/21 18:17 [facility] [id number]) Manual Assessments Soft Tissue Assessment Soft Tissue Mobility Assessment tightness in pec, biceps, deltoid, scar adherance, infra & supraspinatus tightness, scalenes, UT, LS Joint Mobility Assessment Joint Mobility Assessment tightness in GH capsule w/hard end feels w/PROM PT-OP-J Posture/Palpation/Skin Start: 12/13/21 18:02 Freq: Status: Active Protocol: Document 12/24/21 16:48 [facility] (Rec: 12/24/21 18:17 [facility] [id number]) Posture Evaluation Yoel Postural Classification System Yoel Postural Classifications Posterior/Posterior Elbow Flexion Test 0 Comments Posture Comments ant tipped scap, abd, elevated scap, IR of UE L>R, slight inc kyphosis & ant neck PT-OP-K Range of Motion Start: 12/13/21 18:02 Freq: Status: Active Protocol: Document 12/24/21 16:48 [facility] (Rec: 12/24/21 18:17 [facility] [id number]) Shoulder Goniometric Range of Motion Shoulder Left Passive Testing Position Supine Flexion 120 Abduction 80 External Rotation at 45 degrees 36 Abduction External Rotation at 0 degrees Abduction 11 Internal Rotation 45 Comments IR measured in scapular plane Right Active Flexion 162 Extension 67 Abduction 180 External Rotation at 0 degrees Abduction 69 Internal Rotation Behind Back (text) T6 Left Active Testing Position Standing Flexion 99 Extension 34 Abduction 49 External Rotation at 0 degrees Abduction 19 Internal Rotation Behind Back (text) lat inf buttock PT-OP-M Strength Start: 12/13/21 18:02 Freq: Status: Active Protocol: Document 12/24/21 16:48 [facility] (Rec: 12/24/21 18:17 [facility] [id number]) Shoulder Strength Shoulder Manual Muscle Testing Left Flexion 3+ Fair+ Extension 3+ Fair+ Abduction (C5) 2+ Poor+ External Rotation 3 Fair Internal Rotation 3 Fair Comments pain w/resistance Right Flexion 5 Normal Extension 5 Normal Abduction (C5) 5 Normal External Rotation 5 Normal Internal Rotation 5 Normal Elbow/Forearm Strength Elbow and Forearm Manual Muscle Testing Left Flexion (C6) 4- Good- Extension (C7) 4- Good- Pronation 4- Good- Supination 4- Good- Right Flexion (C6) 5 Normal Extension (C7) 5 Normal Pronation 5 Normal Supination 5 Normal Hand Business System Consultant/Pinch Strength Hand Dominance Hand Dominance Right Hand Strength Right Comments 31kg, 34 kg, 29 kg Left Comments 25lb, 22kg,24kg PT-OP-Q Treatments Start: 12/13/21 18:02 Freq: Status: Active Protocol: Document 12/27/21 07:33 SP (Rec: 12/27/21 08:18 SP [id number]) Therapeutic Exercises Supine Exercises ER Supine Exercise Name at side AAROM Side left Equipment Used cane, towel under arm/trunk Reps/Minutes 15 x5 sec hold Comments cued flex Supine Exercise Name AAROM Side left Equipment Used cane Reps/Minutes 15 x5 sec hold Comments cued painfree ROM Sidelying Exercises scapular retraction depression Sidelying Exercise Name warm up in am Side left Reps/Minutes x10 Comments good feedback painfree Sitting Exercises UT, LS stretch Sitting Exercise Name added to HEP Side bilateral Reps/Minutes 15-30 stretch Comments good feedback stretch scap retraction/depression Sitting Exercise Name added to HEP Side bilateral Reps/Minutes 3 sec hold x10 Comments cued tall posturing Standing Exercises ER Standing Exercise Name added to HEP Side left Equipment Used towel under arm Reps/Minutes x15 reps Comments cued painfree range Self STMs Standing Exercise Name added to HEP: UT, inter scap Side left Equipment Used ball on wall post scap, theracane post neck Reps/Minutes 1 min Comments MWM scap ROM/ head nods and turns IR Standing Exercise Name behind back AAROM: HEP reviewed Side bilateral Equipment Used Cane Reps/Minutes 15 x5 sec hold Comments cued level shlds and work toward hand sacrum, only L buttocks ext Standing Exercise Name AAROM w/cane- HEP reviewed Side left Equipment Used cane Reps/Minutes 15 x5 sec hold Comments good form Manual Therapy Treatment Soft Tissue Mobilization L scap, neck Body Location UT, LS, suprasp, infrasp, pec Mobilization Type Myofascial Release,Strumming, Sustained Pressure Intensity/Depth Moderate Body Position Sidelying Comments manual and instruction on self use of ball wall, theracane- good response Joint Mobilizations scapulothoracic PNF Joint L Comments manual and instruction self warm up in am, and scap retraction depression seated as HEP. Self-Care/Home Management Treatment Education Patient Education Home Exercise Program,Joint Protection,Pain Management, Safety Other Education Ed sleep positioning on side w / pillows under head/neck neutral, between under L arm(s ), legs and folded towel under ribcage. Intiated self STMs ball wall post scap, theracane neck. PT-OP-R Modalities Start: 12/13/21 18:02 Freq: Status: Active Protocol: Document 12/27/21 07:33 SP (Rec: 12/27/21 08:18 SP [id number]) Hot Pack/Cold Pack Treatment CP Location L shoulder Patient Position Supine Treatment Duration (minutes) 10 Comments Good feedback performs at home . 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 LTG Duration 03/26/22 strength Short Term Goal (STG) Pt will be indep w/HEP STG Duration 02/15/22 Time Study Engineer Goal (LTG) Pt will score 5/5 on EFT and MMT of L shoulder and elbow w/ o pain in order to allow her to do her typical fucntional activities w/o pain or weakness. LTG Duration 03/26/22 ROM Short Term Goal (STG) Pt will improve AROM L flex to at least 120, Abd to 90 and ext to 45 to allow greater reaching ability. STG Duration 02/15/22 Time Study Engineer Goal (LTG) Pt will have w/in 90% range of RUE AROM in L shoulder to allow for her to do ADLs, and job related activtiies w/o restriction LTG Duration 03/26/22 quick DASH Impairment 45.45 Short Term Goal (STG) Pt will improve quick dash score to no greater than 32 to show impoved functional ability. STG Duration 02/15/22 [facility] Goal (LTG) Pt will improve quick dash score to no greater than 12 to show impoved functional ability. LTG Duration 03/27/22 Assessment Summary Assessment Good feedback manual and instruction self STMs to continue at home and sleep education postiioning with pillows. Improved comfort post manual and scapulothoracic PNF with good demonstration self side in am for ROM and strengthening in sitting at home. Little gains, not measured in AAROM using cane, measure next tx. Initiated neck stretching and self STMs theracane/ ballwall with good feedback response to continue at home. Ed for sleeping and use of pillows for support and folded towel under ribcage with good feedback. Physical Therapy Plan Frequency and Duration Frequency of Treatment 1-2x/week Duration of Treatment 3 months Plan of Care Start Date 12/24/21 Plan of Care End Date 03/26/22 Therapeutic Interventions Therapeutic Interventions Aquatic Therapy,Home Exercise Program,Joint Mobilizations, Manual Therapy,Neuromuscular Re-education,Orthotic/ Prosthetic Management,Patient/ Caregiver Education,Self-Care/ Home Management,Soft Tissue Mobilization,Taping, Therapeutic Activities, Therapeutic Exercises Modalities Cold Pack/Ice Massage,Electric Stimulation,Hot Packs, Infrared Therapy,Ultrasound Next Visit Focus/Plan Next Note Type Treatment Note Next Visit Plan Recheck self STMs and scap mob response. Next tx: intiate UBE 120 rpm, pulleys, review AAROM, further AAROM exercises , GH joint mobs, pec/scap/UT/ LS STM
--- NOTE | 2021-12-31 07:51 | PT-OP ANOTE ---
Pt called and left message re: no show. She was informed of next scheduled appt and asked to call to cancel if unable to make it
--- NOTE | 2022-01-03 08:18 | PT.OTN ---
Current Diagnoses Strain of muscle(s) and tendon(s) of the rotator cuff of left shoulder, subsequent encounter (01/03/22) Physical Therapy Treatment Note PT-OP-A Visit Information Start: 12/13/21 18:02 Freq: Status: Active Protocol: Document 01/03/22 07:29 [facility] (Rec: 01/03/22 08:18 [facility] [id number]) Out-Patient Physical Therapy Visit Information Visit Information Visit Type Treatment Note Visit Note 24 visits per year Visit Start Time 07:31 Visit Stop Time 08:24 Total Visit Minutes 53 Visit Number 3 Number of GAUGER DELIVERY Visits 0 PT-OP-B Current Condition Start: 12/13/21 18:02 Freq: Status: Active Protocol: Document 12/24/21 16:48 [facility] (Rec: 12/24/21 18:17 [facility] [id number]) Current Condition History of Current Condition Onset Date September 19 Current Complaints L shoulder RCR History of Current Condition Pt did PT for about a month or so with no improvement after a fall fwd into her arms around 4 years ago. R shoulder gives her trouble too . Pt reports fingers would get numb at night so she went ahead w/surgery. She gets less numbess in her hands now but it is still a problem. Pt has been the wall crawls, but does have good ROM. She saw PA for follow up about a month after but cancelled her follow up d /t not in w/PT yet. 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 She did follow her restrictions well from surgeon's office early on. Was getting neck pain earlier in recovery but not anymore. Pt reports she has to be very careful w/ movement. Pt R handed. Treatment Goals Patient/Caregiver Goals Be able lift kids, be able to lift overhead, be able to sleep on L side, be able to not feel like she has to be careful, be able to play w/6 y .o. w/o concern or limit. PT-OP-C Subjective Start: 12/13/21 18:02 Freq: Status: Active Protocol: Document 01/03/22 07:29 [facility] (Rec: 01/03/22 08:18 [facility] [id number]) OP-PT Subjective Patient Comments Patient Comments Pt reports not doing exercises daily but has been doing them . Notes she woke up in the night w/tingling in the L hand and this AM but its gone now. PT-OP-F Manual Assessment Start: 12/13/21 18:02 Freq: Status: Active Protocol: Document 12/24/21 16:48 [facility] (Rec: 12/24/21 18:17 [facility] [id number]) Manual Assessments Soft Tissue Assessment Soft Tissue Mobility Assessment tightness in pec, biceps, deltoid, scar adherance, infra & supraspinatus tightness, scalenes, UT, LS Joint Mobility Assessment Joint Mobility Assessment tightness in GH capsule w/hard end feels w/PROM PT-OP-J Posture/Palpation/Skin Start: 12/13/21 18:02 Freq: Status: Active Protocol: Document 12/24/21 16:48 [facility] (Rec: 12/24/21 18:17 [facility] [id number]) Posture Evaluation [facility] Postural Classification System [facility] Postural Classifications Posterior/Posterior Elbow Flexion Test 0 Comments Posture Comments ant tipped scap, abd, elevated scap, IR of UE L>R, slight inc kyphosis & ant neck PT-OP-K Range of Motion Start: 12/13/21 18:02 Freq: Status: Active Protocol: Document 12/24/21 16:48 [facility] (Rec: 12/24/21 18:17 [facility] [id number]) Shoulder Goniometric Range of Motion Shoulder Left Passive Testing Position Supine Flexion 120 Abduction 80 External Rotation at 45 degrees 36 Abduction External Rotation at 0 degrees Abduction 11 Internal Rotation 45 Comments IR measured in scapular plane Right Active Flexion 162 Extension 67 Abduction 180 External Rotation at 0 degrees Abduction 69 Internal Rotation Behind Back (text) T6 Left Active Testing Position Standing Flexion 99 Extension 34 Abduction 49 External Rotation at 0 degrees Abduction 19 Internal Rotation Behind Back (text) lat inf buttock PT-OP-M Strength Start: 12/13/21 18:02 Freq: Status: Active Protocol: Document 12/24/21 16:48 [facility] (Rec: 12/24/21 18:17 [facility] [id number]) Shoulder Strength Shoulder Manual Muscle Testing Left Flexion 3+ Fair+ Extension 3+ Fair+ Abduction (C5) 2+ Poor+ External Rotation 3 Fair Internal Rotation 3 Fair Comments pain w/resistance Right Flexion 5 Normal Extension 5 Normal Abduction (C5) 5 Normal External Rotation 5 Normal Internal Rotation 5 Normal Elbow/Forearm Strength Elbow and Forearm Manual Muscle Testing Left Flexion (C6) 4- Good- Extension (C7) 4- Good- Pronation 4- Good- Supination 4- Good- Right Flexion (C6) 5 Normal Extension (C7) 5 Normal Pronation 5 Normal Supination 5 Normal Hand Piccolo Mechanic/Pinch Strength Hand Dominance Hand Dominance Right Hand Strength Right Comments 31kg, 34 kg, 29 kg Left Comments 25lb, 22kg,24kg PT-OP-Q Treatments Start: 12/13/21 18:02 Freq: Status: Active Protocol: Document 01/03/22 07:29 [facility] (Rec: 01/03/22 08:18 [facility] [id number]) Cardio Equipment Upper Body Ergometer (UBE) Duration (Minutes) 4 RPM 60 Seat Position 13 Height 6 Therapeutic Exercises Supine Exercises ER Supine Exercise Name at side AAROM Side left Equipment Used cane, towel under arm/trunk Reps/Minutes 10 x5 sec hold Comments cued flex Supine Exercise Name AAROM Side left Equipment Used cane Reps/Minutes 10 x5 sec hold Sitting Exercises pully Sitting Exercise Name AAROM: flex, scaption, abd, IR Side left Reps/Minutes 10 ea UT, LS stretch Sitting Exercise Name Review HEP Side bilateral Reps/Minutes 30 stretch ea Comments good feedback stretch scap retraction/depression Sitting Exercise Name reviewHEP Side bilateral Reps/Minutes 3 sec hold x10 Comments cued tall posturing Standing Exercises ER Standing Exercise Name review HEP Side left Equipment Used towel under arm Reps/Minutes x15 reps Comments cued painfree range Self STMs Standing Exercise Name review HEP: UT, inter scap Side left Equipment Used ball on wall post scap, theracane post neck Reps/Minutes 1 min Comments MWM scap ROM/ head nods and turns IR Standing Exercise Name behind back AAROM: HEP reviewed Side bilateral Equipment Used Cane Reps/Minutes 10x5 sec hold Comments cued level shlds and work toward hand sacrum, only L buttocks ext Standing Exercise Name AAROM w/cane- HEP reviewed Side left Equipment Used cane Reps/Minutes 10 x5 sec hold Comments good form Manual Therapy Treatment Soft Tissue Mobilization L scap, neck Body Location UT, LS, suprasp, infrasp, pec Mobilization Type Myofascial Release,Strumming, Sustained Pressure Intensity/Depth Moderate Body Position Supine Joint Mobilizations GH Joint L Direction post, distraction Grade II PT-OP-R Modalities Start: 12/13/21 18:02 Freq: Status: Active Protocol: Document 01/03/22 07:29 [facility] (Rec: 01/03/22 08:18 [facility] [id number]) Hot Pack/Cold Pack Treatment CP Location L shoulder Patient Position Supine Treatment Duration (minutes) 10 Comments Good feedback performs at home . PT-OP-T Assessment and Plan Start: 12/13/21 18:02 Freq: Status: Active Protocol: Document 01/03/22 07:29 [facility] (Rec: 01/03/22 08:18 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 LTG Duration 03/26/22 strength Short Term Goal (STG) Pt will be indep w/HEP STG Duration 02/15/22 Assisted Goal (LTG) Pt will score 5/5 on EFT and MMT of L shoulder and elbow w/ o pain in order to allow her to do her typical fucntional activities w/o pain or weakness. LTG Duration 03/26/22 ROM Short Term Goal (STG) Pt will improve AROM L flex to at least 120, Abd to 90 and ext to 45 to allow greater reaching ability. STG Duration 02/15/22 Assisted Goal (LTG) Pt will have w/in 90% range of RUE AROM in L shoulder to allow for her to do ADLs, and job related activtiies w/o restriction LTG Duration 03/26/22 quick DASH Impairment 45.45 Short Term Goal (STG) Pt will improve quick dash score to no greater than 32 to show impoved functional ability. STG Duration 02/15/22 Assisted Goal (LTG) Pt will improve quick dash score to no greater than 12 to show impoved functional ability. LTG Duration 03/27/22 Assessment Summary Assessment Pt encouraged to do exercises daily and do ROM 2x/day to improve it. Discussed why this is important. Some cues required w/scap motion w/ exercises. Physical Therapy Plan Frequency and Duration Frequency of Treatment 1-2x/week Duration of Treatment 3 months Plan of Care Start Date 12/24/21 Plan of Care End Date 03/26/22 Next Visit Focus/Plan Next Note Type Treatment Note Next Visit Plan cont to progress AAROM and AROM, joint mobs & STM
--- NOTE | 2022-01-07 08:29 | PT.OTN ---
Current Diagnoses Strain of muscle(s) and tendon(s) of the rotator cuff of left shoulder, subsequent encounter (01/07/22) Physical Therapy Treatment Note PT-OP-A Visit Information Start: 12/13/21 18:02 Freq: Status: Active Protocol: Document 01/07/22 07:30 [facility] (Rec: 01/07/22 08:29 [facility] [id number]) Out-Patient Physical Therapy Visit Information Visit Information Visit Type Treatment Note Visit Note 24 visits per year Visit Start Time 07:32 Visit Stop Time 08:13 Total Visit Minutes 41 Visit Number 4 Number of STONEWORKING BELT SANDER Visits 0 PT-OP-B Current Condition Start: 12/13/21 18:02 Freq: Status: Active Protocol: Document 12/24/21 16:48 [facility] (Rec: 12/24/21 18:17 [facility] [id number]) Current Condition History of Current Condition Onset Date September 19 Current Complaints L shoulder RCR History of Current Condition Pt did PT for about a month or so with no improvement after a fall fwd into her arms around 4 years ago. R shoulder gives her trouble too . Pt reports fingers would get numb at night so she went ahead w/surgery. She gets less numbess in her hands now but it is still a problem. Pt has been the wall crawls, but does have good ROM. She saw PA for follow up about a month after but cancelled her follow up d /t not in w/PT yet. 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 She did follow her restrictions well from surgeon's office early on. Was getting neck pain earlier in recovery but not anymore. Pt reports she has to be very careful w/ movement. Pt R handed. Treatment Goals Patient/Caregiver Goals Be able lift kids, be able to lift overhead, be able to sleep on L side, be able to not feel like she has to be careful, be able to play w/6 y .o. w/o concern or limit. PT-OP-C Subjective Start: 12/13/21 18:02 Freq: Status: Active Protocol: Document 01/07/22 07:30 [facility] (Rec: 01/07/22 08:29 [facility] [id number]) OP-PT Subjective Patient Comments Patient Comments Pt reports she has been waking up every AM w/numbness and tingling in her hands. Pt reports she still has not scheduled w/ortho. Note she has been doing exercises. Reports more soreness. She was pulling lavender last night PT-OP-F Manual Assessment Start: 12/13/21 18:02 Freq: Status: Active Protocol: Document 12/24/21 16:48 [facility] (Rec: 12/24/21 18:17 [facility] [id number]) Manual Assessments Soft Tissue Assessment Soft Tissue Mobility Assessment tightness in pec, biceps, deltoid, scar adherance, infra & supraspinatus tightness, scalenes, UT, LS Joint Mobility Assessment Joint Mobility Assessment tightness in GH capsule w/hard end feels w/PROM PT-OP-J Posture/Palpation/Skin Start: 12/13/21 18:02 Freq: Status: Active Protocol: Document 12/24/21 16:48 [facility] (Rec: 12/24/21 18:17 [facility] [id number]) Posture Evaluation [facility] Postural Classification System [facility] Postural Classifications Posterior/Posterior Elbow Flexion Test 0 Comments Posture Comments ant tipped scap, abd, elevated scap, IR of UE L>R, slight inc kyphosis & ant neck PT-OP-K Range of Motion Start: 12/13/21 18:02 Freq: Status: Active Protocol: Document 12/24/21 16:48 [facility] (Rec: 12/24/21 18:17 [facility] [id number]) Shoulder Goniometric Range of Motion Shoulder Left Passive Testing Position Supine Flexion 120 Abduction 80 External Rotation at 45 degrees 36 Abduction External Rotation at 0 degrees Abduction 11 Internal Rotation 45 Comments IR measured in scapular plane Right Active Flexion 162 Extension 67 Abduction 180 External Rotation at 0 degrees Abduction 69 Internal Rotation Behind Back (text) T6 Left Active Testing Position Standing Flexion 99 Extension 34 Abduction 49 External Rotation at 0 degrees Abduction 19 Internal Rotation Behind Back (text) lat inf buttock PT-OP-M Strength Start: 12/13/21 18:02 Freq: Status: Active Protocol: Document 12/24/21 16:48 [facility] (Rec: 12/24/21 18:17 [facility] [id number]) Shoulder Strength Shoulder Manual Muscle Testing Left Flexion 3+ Fair+ Extension 3+ Fair+ Abduction (C5) 2+ Poor+ External Rotation 3 Fair Internal Rotation 3 Fair Comments pain w/resistance Right Flexion 5 Normal Extension 5 Normal Abduction (C5) 5 Normal External Rotation 5 Normal Internal Rotation 5 Normal Elbow/Forearm Strength Elbow and Forearm Manual Muscle Testing Left Flexion (C6) 4- Good- Extension (C7) 4- Good- Pronation 4- Good- Supination 4- Good- Right Flexion (C6) 5 Normal Extension (C7) 5 Normal Pronation 5 Normal Supination 5 Normal Hand Health Information Systems Technician/Pinch Strength Hand Dominance Hand Dominance Right Hand Strength Right Comments 31kg, 34 kg, 29 kg Left Comments 25lb, 22kg,24kg PT-OP-Q Treatments Start: 12/13/21 18:02 Freq: Status: Active Protocol: Document 01/07/22 07:30 [facility] (Rec: 01/07/22 08:29 [facility] [id number]) Cardio Equipment Upper Body Ergometer (UBE) Duration (Minutes) 5 RPM 60 Seat Position 13 Height 6 Therapeutic Exercises Supine Exercises serratus punch Side bilateral Reps/Minutes 15 Sidelying Exercises ER Side left Reps/Minutes 15 Comments towel at elbow, comfortable range Sitting Exercises pully Sitting Exercise Name AAROM: flex, scaption, abd, IR Side left Reps/Minutes 10 ea Standing Exercises stretch Standing Exercise Name doorway shoulder ext Side bilateral Reps/Minutes 30 sec ER Standing Exercise Name review HEP Side left Equipment Used towel under arm Reps/Minutes x15 reps Comments cued painfree range Manual Therapy Treatment Soft Tissue Mobilization L scap, neck Body Location UT, LS, scalenes, suprasp, infrasp, pec, lats Mobilization Type Myofascial Release,Strumming, Sustained Pressure Intensity/Depth Moderate Comments supine & s/l Joint Mobilizations GH Joint L Direction post, distraction, inf Grade II PT-OP-R Modalities Start: 12/13/21 18:02 Freq: Status: Active Protocol: Document 01/03/22 07:29 [facility] (Rec: 01/03/22 08:18 [facility] [id number]) Hot Pack/Cold Pack Treatment CP Location L shoulder Patient Position Supine Treatment Duration (minutes) 10 Comments Good feedback performs at home . PT-OP-T Assessment and Plan Start: 12/13/21 18:02 Freq: Status: Active Protocol: Document 01/07/22 07:30 [facility] (Rec: 01/07/22 08:29 [facility] [id number]) Physical Therapy Assessment Goals functional Short Term Goal (STG) Pt will be able to sleep on L side comfortably STG Duration 02/23/22 Senior Auditor Goal (LTG) 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 LTG Duration 03/26/22 strength Short Term Goal (STG) Pt will be indep w/HEP STG Duration 02/15/22 Jail Goal (LTG) Pt will score 5/5 on EFT and MMT of L shoulder and elbow w/ o pain in order to allow her to do her typical fucntional activities w/o pain or weakness. LTG Duration 03/26/22 ROM Short Term Goal (STG) Pt will improve AROM L flex to at least 120, Abd to 90 and ext to 45 to allow greater reaching ability. STG Duration 02/15/22 Jail Goal (LTG) Pt will have w/in 90% range of RUE AROM in L shoulder to allow for her to do ADLs, and job related activtiies w/o restriction LTG Duration 03/26/22 quick DASH Impairment 45.45 Short Term Goal (STG) Pt will improve quick dash score to no greater than 32 to show impoved functional ability. STG Duration 02/15/22 Jail Goal (LTG) Pt will improve quick dash score to no greater than 12 to show impoved functional ability. LTG Duration 03/27/22 Assessment Summary Assessment Imporved scap depression and retraction with manual today. She did note some tingling w/ inf gliding. She has significant capsular stiffness . Physical Therapy Plan Frequency and Duration Frequency of Treatment 1-2x/week Duration of Treatment 3 months Plan of Care Start Date 12/24/21 Plan of Care End Date 03/26/22 Next Visit Focus/Plan Next Note Type Treatment Note Next Visit Plan cont to progress AAROM and AROM, joint mobs & STM
--- NOTE | 2022-01-10 09:09 | PT.OTN ---
Current Diagnoses Strain of muscle(s) and tendon(s) of the rotator cuff of left shoulder, subsequent encounter (01/10/22) Physical Therapy Treatment Note PT-OP-A Visit Information Start: 12/13/21 18:02 Freq: Status: Active Protocol: Document 01/10/22 07:30 [facility] (Rec: 01/10/22 08:28 [facility] [id number]) Out-Patient Physical Therapy Visit Information Visit Information Visit Type Treatment Note Visit Note 24 visits per year Visit Start Time 07:30 Visit Stop Time 08:23 Total Visit Minutes 53 Visit Number 5 Number of CUT OUT AND MARKING MACHINE OPERATOR Visits 0 PT-OP-B Current Condition Start: 12/13/21 18:02 Freq: Status: Active Protocol: Document 12/24/21 16:48 [facility] (Rec: 12/24/21 18:17 [facility] [id number]) Current Condition History of Current Condition Onset Date September 19 Current Complaints L shoulder RCR History of Current Condition Pt did PT for about a month or so with no improvement after a fall fwd into her arms around 4 years ago. R shoulder gives her trouble too . Pt reports fingers would get numb at night so she went ahead w/surgery. She gets less numbess in her hands now but it is still a problem. Pt has been the wall crawls, but does have good ROM. She saw PA for follow up about a month after but cancelled her follow up d /t not in w/PT yet. 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 She did follow her restrictions well from surgeon's office early on. Was getting neck pain earlier in recovery but not anymore. Pt reports she has to be very careful w/ movement. Pt R handed. Treatment Goals Patient/Caregiver Goals Be able lift kids, be able to lift overhead, be able to sleep on L side, be able to not feel like she has to be careful, be able to play w/6 y .o. w/o concern or limit. PT-OP-C Subjective Start: 12/13/21 18:02 Freq: Status: Active Protocol: Document 01/10/22 07:30 [facility] (Rec: 01/10/22 08:28 [facility] [id number]) OP-PT Subjective Patient Comments Patient Comments Pt reports shoulder is sore from a big workout yesterday. Notes she hasn't had numbness in hand since last session after manual PT-OP-F Manual Assessment Start: 12/13/21 18:02 Freq: Status: Active Protocol: Document 12/24/21 16:48 [facility] (Rec: 12/24/21 18:17 [facility] [id number]) Manual Assessments Soft Tissue Assessment Soft Tissue Mobility Assessment tightness in pec, biceps, deltoid, scar adherance, infra & supraspinatus tightness, scalenes, UT, LS Joint Mobility Assessment Joint Mobility Assessment tightness in GH capsule w/hard end feels w/PROM PT-OP-J Posture/Palpation/Skin Start: 12/13/21 18:02 Freq: Status: Active Protocol: Document 12/24/21 16:48 [facility] (Rec: 12/24/21 18:17 [facility] [id number]) Posture Evaluation [facility] Postural Classification System [facility] Postural Classifications Posterior/Posterior Elbow Flexion Test 0 Comments Posture Comments ant tipped scap, abd, elevated scap, IR of UE L>R, slight inc kyphosis & ant neck PT-OP-K Range of Motion Start: 12/13/21 18:02 Freq: Status: Active Protocol: Document 12/24/21 16:48 [facility] (Rec: 12/24/21 18:17 [facility] [id number]) Shoulder Goniometric Range of Motion Shoulder Left Passive Testing Position Supine Flexion 120 Abduction 80 External Rotation at 45 degrees 36 Abduction External Rotation at 0 degrees Abduction 11 Internal Rotation 45 Comments IR measured in scapular plane Right Active Flexion 162 Extension 67 Abduction 180 External Rotation at 0 degrees Abduction 69 Internal Rotation Behind Back (text) T6 Left Active Testing Position Standing Flexion 99 Extension 34 Abduction 49 External Rotation at 0 degrees Abduction 19 Internal Rotation Behind Back (text) lat inf buttock PT-OP-M Strength Start: 12/13/21 18:02 Freq: Status: Active Protocol: Document 12/24/21 16:48 [facility] (Rec: 12/24/21 18:17 [facility] [id number]) Shoulder Strength Shoulder Manual Muscle Testing Left Flexion 3+ Fair+ Extension 3+ Fair+ Abduction (C5) 2+ Poor+ External Rotation 3 Fair Internal Rotation 3 Fair Comments pain w/resistance Right Flexion 5 Normal Extension 5 Normal Abduction (C5) 5 Normal External Rotation 5 Normal Internal Rotation 5 Normal Elbow/Forearm Strength Elbow and Forearm Manual Muscle Testing Left Flexion (C6) 4- Good- Extension (C7) 4- Good- Pronation 4- Good- Supination 4- Good- Right Flexion (C6) 5 Normal Extension (C7) 5 Normal Pronation 5 Normal Supination 5 Normal Hand Back Panel Padder/Pinch Strength Hand Dominance Hand Dominance Right Hand Strength Right Comments 31kg, 34 kg, 29 kg Left Comments 25lb, 22kg,24kg PT-OP-Q Treatments Start: 12/13/21 18:02 Freq: Status: Active Protocol: Document 01/10/22 07:30 [facility] (Rec: 01/10/22 08:28 [facility] [id number]) Cardio Equipment Upper Body Ergometer (UBE) Duration (Minutes) 5 RPM 60 Seat Position 13 Height 6 Therapeutic Exercises Supine Exercises serratus punch Side bilateral Reps/Minutes 15 Prone Exercises ext Side left Reps/Minutes 12 Comments cues for scap Habd Side left Reps/Minutes 12 Comments available range w/cues for scap Sidelying Exercises abd Side left Reps/Minutes 20 ER Side left Reps/Minutes 15 Comments towel at elbow, comfortable range Sitting Exercises pully Sitting Exercise Name AAROM: flex, scaption, abd, IR Side left Reps/Minutes 10 ea Standing Exercises stretch Standing Exercise Name doorway shoulder ext Side bilateral Reps/Minutes 30 sec IR Standing Exercise Name behind back AAROM Side left Equipment Used towel Reps/Minutes 10 ext Standing Exercise Name AAROM w/cane- HEP reviewed Side left Equipment Used cane Reps/Minutes 8 Comments adjusted cane position for push back instead Manual Therapy Treatment Soft Tissue Mobilization scars Body Location L shoulder Mobilization Type Rolling,Strumming Intensity/Depth Moderate L scap, neck Body Location pecs, biceps, post delt Mobilization Type Myofascial Release,Strumming, Sustained Pressure Intensity/Depth Moderate Comments supine Joint Mobilizations GH Joint L Direction post, distraction, inf Grade III PT-OP-R Modalities Start: 12/13/21 18:02 Freq: Status: Active Protocol: Document 01/10/22 07:30 [facility] (Rec: 01/10/22 08:28 [facility] [id number]) Electric Stimulation Electric Stimulation Interferential Current (IFC) Body Location L shoulder Duration (Minutes) 10 Combined With Heat/Cold Cold Pack PT-OP-T Assessment and Plan Start: 12/13/21 18:02 Freq: Status: Active Protocol: Document 01/10/22 07:30 [facility] (Rec: 01/10/22 08:28 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 LTG Duration 03/26/22 strength Short Term Goal (STG) Pt will be indep w/HEP STG Duration 02/15/22 House Moving Supervisor Goal (LTG) Pt will score 5/5 on EFT and MMT of L shoulder and elbow w/ o pain in order to allow her to do her typical fucntional activities w/o pain or weakness. LTG Duration 03/26/22 ROM Short Term Goal (STG) Pt will improve AROM L flex to at least 120, Abd to 90 and ext to 45 to allow greater reaching ability. STG Duration 02/15/22 House Moving Supervisor Goal (LTG) Pt will have w/in 90% range of RUE AROM in L shoulder to allow for her to do ADLs, and job related activtiies w/o restriction LTG Duration 03/26/22 quick DASH Impairment 45.45 Short Term Goal (STG) Pt will improve quick dash score to no greater than 32 to show impoved functional ability. STG Duration 02/15/22 Nursing Home Goal (LTG) Pt will improve quick dash score to no greater than 12 to show impoved functional ability. LTG Duration 03/27/22 Assessment Summary Assessment Pt did well with exercises but did note soreness. She is showing much improved overhead mobility but still very limited in IR mostly but also ext and ER. Physical Therapy Plan Frequency and Duration Frequency of Treatment 1-2x/week Duration of Treatment 3 months Plan of Care Start Date 12/24/21 Plan of Care End Date 03/26/22 Next Visit Focus/Plan Next Note Type Treatment Note Next Visit Plan cont to progress AAROM and AROM, joint mobs & STM
--- NOTE | 2022-01-14 08:37 | PT.OTN ---
Current Diagnoses Strain of muscle(s) and tendon(s) of the rotator cuff of left shoulder, subsequent encounter (01/14/22) Physical Therapy Treatment Note PT-OP-A Visit Information Start: 12/13/21 18:02 Freq: Status: Active Protocol: Document 01/14/22 07:34 [facility] (Rec: 01/14/22 08:37 [facility] [id number]) Out-Patient Physical Therapy Visit Information Visit Information Visit Type Treatment Note Visit Note 24 visits per year Visit Start Time 07:31 Visit Stop Time 08:26 Total Visit Minutes 55 Visit Number 6 Number of PULLEY MAINTAINER Visits 0 PT-OP-B Current Condition Start: 12/13/21 18:02 Freq: Status: Active Protocol: Document 12/24/21 16:48 [facility] (Rec: 12/24/21 18:17 [facility] [id number]) Current Condition History of Current Condition Onset Date September 19 Current Complaints L shoulder RCR History of Current Condition Pt did PT for about a month or so with no improvement after a fall fwd into her arms around 4 years ago. R shoulder gives her trouble too . Pt reports fingers would get numb at night so she went ahead w/surgery. She gets less numbess in her hands now but it is still a problem. Pt has been the wall crawls, but does have good ROM. She saw PA for follow up about a month after but cancelled her follow up d /t not in w/PT yet. 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 She did follow her restrictions well from surgeon's office early on. Was getting neck pain earlier in recovery but not anymore. Pt reports she has to be very careful w/ movement. Pt R handed. Treatment Goals Patient/Caregiver Goals Be able lift kids, be able to lift overhead, be able to sleep on L side, be able to not feel like she has to be careful, be able to play w/6 y .o. w/o concern or limit. PT-OP-C Subjective Start: 12/13/21 18:02 Freq: Status: Active Protocol: Document 01/14/22 07:34 [facility] (Rec: 01/14/22 08:37 [facility] [id number]) OP-PT Subjective Patient Comments Patient Comments Pt reports she still hasn't called the provider yet to get scheduled. Pt reports she did exercises every other day last week. no numbness last night and only one instance this past week. PT-OP-F Manual Assessment Start: 12/13/21 18:02 Freq: Status: Active Protocol: Document 12/24/21 16:48 [facility] (Rec: 12/24/21 18:17 [facility] [id number]) Manual Assessments Soft Tissue Assessment Soft Tissue Mobility Assessment tightness in pec, biceps, deltoid, scar adherance, infra & supraspinatus tightness, scalenes, UT, LS Joint Mobility Assessment Joint Mobility Assessment tightness in GH capsule w/hard end feels w/PROM PT-OP-J Posture/Palpation/Skin Start: 12/13/21 18:02 Freq: Status: Active Protocol: Document 12/24/21 16:48 [facility] (Rec: 12/24/21 18:17 [facility] [id number]) Posture Evaluation [facility] Postural Classification System [facility] Postural Classifications Posterior/Posterior Elbow Flexion Test 0 Comments Posture Comments ant tipped scap, abd, elevated scap, IR of UE L>R, slight inc kyphosis & ant neck PT-OP-K Range of Motion Start: 12/13/21 18:02 Freq: Status: Active Protocol: Document 12/24/21 16:48 [facility] (Rec: 12/24/21 18:17 [facility] [id number]) Shoulder Goniometric Range of Motion Shoulder Left Passive Testing Position Supine Flexion 120 Abduction 80 External Rotation at 45 degrees 36 Abduction External Rotation at 0 degrees Abduction 11 Internal Rotation 45 Comments IR measured in scapular plane Right Active Flexion 162 Extension 67 Abduction 180 External Rotation at 0 degrees Abduction 69 Internal Rotation Behind Back (text) T6 Left Active Testing Position Standing Flexion 99 Extension 34 Abduction 49 External Rotation at 0 degrees Abduction 19 Internal Rotation Behind Back (text) lat inf buttock PT-OP-M Strength Start: 12/13/21 18:02 Freq: Status: Active Protocol: Document 12/24/21 16:48 [facility] (Rec: 12/24/21 18:17 [facility] [id number]) Shoulder Strength Shoulder Manual Muscle Testing Left Flexion 3+ Fair+ Extension 3+ Fair+ Abduction (C5) 2+ Poor+ External Rotation 3 Fair Internal Rotation 3 Fair Comments pain w/resistance Right Flexion 5 Normal Extension 5 Normal Abduction (C5) 5 Normal External Rotation 5 Normal Internal Rotation 5 Normal Elbow/Forearm Strength Elbow and Forearm Manual Muscle Testing Left Flexion (C6) 4- Good- Extension (C7) 4- Good- Pronation 4- Good- Supination 4- Good- Right Flexion (C6) 5 Normal Extension (C7) 5 Normal Pronation 5 Normal Supination 5 Normal Hand Squaring Machine Operator/Pinch Strength Hand Dominance Hand Dominance Right Hand Strength Right Comments 31kg, 34 kg, 29 kg Left Comments 25lb, 22kg,24kg PT-OP-Q Treatments Start: 12/13/21 18:02 Freq: Status: Active Protocol: Document 01/14/22 07:34 [facility] (Rec: 01/14/22 08:37 [facility] [id number]) Therapeutic Exercises Supine Exercises serratus punch Side bilateral Reps/Minutes 15 Prone Exercises ext Side left Equipment Used 1# Reps/Minutes 15 Comments cues for scap Habd Side left Reps/Minutes 12 Comments available range w/cues for scap Sidelying Exercises abd Side left Equipment Used 1# Reps/Minutes 15 ER Side left Reps/Minutes 20 Comments towel at elbow, comfortable range Sitting Exercises pully Sitting Exercise Name AAROM: flex, scaption, abd, IR Side left Reps/Minutes 15 ea Standing Exercises ER Standing Exercise Name isometric at wall Side left Reps/Minutes 5 sec x8 IR Standing Exercise Name behind back AAROM Side left Equipment Used towel Reps/Minutes 30sec ext Side bilateral Equipment Used Lvl 1 Reps/Minutes 15 Manual Therapy Treatment Soft Tissue Mobilization scars Body Location L shoulder Mobilization Type Rolling,Strumming Intensity/Depth Moderate Comments pt edcuated to do self masage L scap, neck Body Location pecs, biceps, post delt Mobilization Type Myofascial Release,Strumming, Sustained Pressure Intensity/Depth Moderate Comments supine Joint Mobilizations GH Joint L Direction post, distraction, inf FM Grade III PT-OP-R Modalities Start: 12/13/21 18:02 Freq: Status: Active Protocol: Document 01/14/22 07:34 [facility] (Rec: 01/14/22 08:37 [facility] [id number]) Electric Stimulation Electric Stimulation Interferential Current (IFC) Body Location L shoulder Duration (Minutes) 10 Combined With Heat/Cold Cold Pack PT-OP-T Assessment and Plan Start: 12/13/21 18:02 Freq: Status: Active Protocol: Document 01/14/22 07:34 [facility] (Rec: 01/14/22 08:37 [facility] [id number]) Physical Therapy Assessment Goals functional Short Term Goal (STG) Pt will be able to sleep on L side comfortably STG Duration 02/23/22 Skilled Nursing Goal (LTG) 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 LTG Duration 03/26/22 strength Short Term Goal (STG) Pt will be indep w/HEP STG Duration 02/15/22 Skilled Nursing Goal (LTG) Pt will score 5/5 on EFT and MMT of L shoulder and elbow w/ o pain in order to allow her to do her typical fucntional activities w/o pain or weakness. LTG Duration 03/26/22 ROM Short Term Goal (STG) Pt will improve AROM L flex to at least 120, Abd to 90 and ext to 45 to allow greater reaching ability. STG Duration 02/15/22 Plumber Apprentice Goal (LTG) Pt will have w/in 90% range of RUE AROM in L shoulder to allow for her to do ADLs, and job related activtiies w/o restriction LTG Duration 03/26/22 quick DASH Impairment 45.45 Short Term Goal (STG) Pt will improve quick dash score to no greater than 32 to show impoved functional ability. STG Duration 02/15/22 Skilled Nursing Goal (LTG) Pt will improve quick dash score to no greater than 12 to show impoved functional ability. LTG Duration 03/27/22 Assessment Summary Assessment Pt did well with exercises and was able to tolerate light resistance today. Seh is still very limited in rotation ROM (IR especially), but is cont to improve w/overhead mobility . Physical Therapy Plan Frequency and Duration Frequency of Treatment 1-2x/week Duration of Treatment 3 months Plan of Care Start Date 12/24/21 Plan of Care End Date 03/26/22 Next Visit Focus/Plan Next Note Type Treatment Note Next Visit Plan cont to progress AAROM and AROM, joint mobs & STM
--- NOTE | 2022-01-17 08:18 | PT.OTN ---
Current Diagnoses Strain of muscle(s) and tendon(s) of the rotator cuff of left shoulder, subsequent encounter (01/17/22) Physical Therapy Treatment Note PT-OP-A Visit Information Start: 12/13/21 18:02 Freq: Status: Active Protocol: Document 01/17/22 07:34 [facility] (Rec: 01/17/22 08:18 [facility] [id number]) Out-Patient Physical Therapy Visit Information Visit Information Visit Type Treatment Note Visit Note 24 visits per year Visit Start Time 07:31 Visit Stop Time 08:15 Total Visit Minutes 44 Visit Number 7 Number of HOUSING MANAGER Visits 0 PT-OP-B Current Condition Start: 12/13/21 18:02 Freq: Status: Active Protocol: Document 12/24/21 16:48 [facility] (Rec: 12/24/21 18:17 [facility] [id number]) Current Condition History of Current Condition Onset Date September 19 Current Complaints L shoulder RCR History of Current Condition Pt did PT for about a month or so with no improvement after a fall fwd into her arms around 4 years ago. R shoulder gives her trouble too . Pt reports fingers would get numb at night so she went ahead w/surgery. She gets less numbess in her hands now but it is still a problem. Pt has been the wall crawls, but does have good ROM. She saw PA for follow up about a month after but cancelled her follow up d /t not in w/PT yet. 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 She did follow her restrictions well from surgeon's office early on. Was getting neck pain earlier in recovery but not anymore. Pt reports she has to be very careful w/ movement. Pt R handed. Treatment Goals Patient/Caregiver Goals Be able lift kids, be able to lift overhead, be able to sleep on L side, be able to not feel like she has to be careful, be able to play w/6 y .o. w/o concern or limit. PT-OP-C Subjective Start: 12/13/21 18:02 Freq: Status: Active Protocol: Document 01/17/22 07:34 [facility] (Rec: 01/17/22 08:18 [facility] [id number]) OP-PT Subjective Patient Comments Patient Comments Pt reports she fell when walking through a narrow area of baby carriers and fell to B out stretched arms. Pt reprots it felt worse the next day (wed) and she notes it feels a little bit better than yesterday. She feels it in L post scap area. Reports just taking a deep breath hurts PT-OP-F Manual Assessment Start: 12/13/21 18:02 Freq: Status: Active Protocol: Document 12/24/21 16:48 [facility] (Rec: 12/24/21 18:17 [facility] [id number]) Manual Assessments Soft Tissue Assessment Soft Tissue Mobility Assessment tightness in pec, biceps, deltoid, scar adherance, infra & supraspinatus tightness, scalenes, UT, LS Joint Mobility Assessment Joint Mobility Assessment tightness in GH capsule w/hard end feels w/PROM PT-OP-J Posture/Palpation/Skin Start: 12/13/21 18:02 Freq: Status: Active Protocol: Document 12/24/21 16:48 [facility]21 [id number] Evaluation [facility] Postural Classification System [facility] Postural Classifications Posterior/Posterior Elbow Flexion Test 0 Comments Posture Comments ant tipped scap, abd, elevated scap, IR of UE L>R, slight inc kyphosis & ant neck PT-OP-K Range of Motion Start: 12/13/21 18:02 Freq: Status: Active Protocol: Document 12/24/21 16:48 [facility] (Rec: 12/24/21 18:17 [facility] [id number]) Shoulder Goniometric Range of Motion Shoulder Left Passive Testing Position Supine Flexion 120 Abduction 80 External Rotation at 45 degrees 36 Abduction External Rotation at 0 degrees Abduction 11 Internal Rotation 45 Comments IR measured in scapular plane Right Active Flexion 162 Extension 67 Abduction 180 External Rotation at 0 degrees Abduction 69 Internal Rotation Behind Back (text) T6 Left Active Testing Position Standing Flexion 99 Extension 34 Abduction 49 External Rotation at 0 degrees Abduction 19 Internal Rotation Behind Back (text) lat inf buttock PT-OP-M Strength Start: 12/13/21 18:02 Freq: Status: Active Protocol: Document 12/24/21 16:48 [facility] (Rec: 12/24/21 18:17 [facility] [id number]) Shoulder Strength Shoulder Manual Muscle Testing Left Flexion 3+ Fair+ Extension 3+ Fair+ Abduction (C5) 2+ Poor+ External Rotation 3 Fair Internal Rotation 3 Fair Comments pain w/resistance Right Flexion 5 Normal Extension 5 Normal Abduction (C5) 5 Normal External Rotation 5 Normal Internal Rotation 5 Normal Elbow/Forearm Strength Elbow and Forearm Manual Muscle Testing Left Flexion (C6) 4- Good- Extension (C7) 4- Good- Pronation 4- Good- Supination 4- Good- Right Flexion (C6) 5 Normal Extension (C7) 5 Normal Pronation 5 Normal Supination 5 Normal Hand Auto Clutch Specialist/Pinch Strength Hand Dominance Hand Dominance Right Hand Strength Right Comments 31kg, 34 kg, 29 kg Left Comments 25lb, 22kg,24kg PT-OP-Q Treatments Start: 12/13/21 18:02 Freq: Status: Active Protocol: Document 01/17/22 07:34 [facility] (Rec: 01/17/22 08:18 [facility] [id number]) Therapeutic Exercises Sidelying Exercises open book Side bilateral Reps/Minutes 10 ea Sitting Exercises pully Sitting Exercise Name AAROM: flex, scaption, abd, IR Side left Reps/Minutes 15 ea Manual Therapy Treatment Soft Tissue Mobilization L scap, neck Body Location L pecs, post delt, infra, supraspinatus, rhomboids, LT, mid trap Mobilization Type Myofascial Release,Strumming, Sustained Pressure Intensity/Depth Moderate Joint Mobilizations thoracic Comments PA & UPA L T4-8 FM transverse R T5-8 FM scapulothoracic PNF Joint scap mobs into all planes PT-OP-R Modalities Start: 12/13/21 18:02 Freq: Status: Active Protocol: Document 01/14/22 07:34 [facility] (Rec: 01/14/22 08:37 [facility] [id number]) Electric Stimulation Electric Stimulation Interferential Current (IFC) Body Location L shoulder Duration (Minutes) 10 Combined With Heat/Cold Cold Pack PT-OP-T Assessment and Plan Start: 12/13/21 18:02 Freq: Status: Active Protocol: Document 01/17/22 07:34 [facility] (Rec: 01/17/22 08:18 [facility] [id number]) Physical Therapy Assessment Goals functional Short Term Goal (STG) Pt will be able to sleep on L side comfortably STG Duration 02/23/22 Senior Care Manager Goal (LTG) 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 LTG Duration 03/26/22 strength Short Term Goal (STG) Pt will be indep w/HEP STG Duration 02/15/22 [facility] Goal (LTG) Pt will score 5/5 on EFT and MMT of L shoulder and elbow w/ o pain in order to allow her to do her typical fucntional activities w/o pain or weakness. LTG Duration 03/26/22 ROM Short Term Goal (STG) Pt will improve AROM L flex to at least 120, Abd to 90 and ext to 45 to allow greater reaching ability. STG Duration 02/15/22 [facility] Goal (LTG) Pt will have w/in 90% range of RUE AROM in L shoulder to allow for her to do ADLs, and job related activtiies w/o restriction LTG Duration 03/26/22 quick DASH Impairment 45.45 Short Term Goal (STG) Pt will improve quick dash score to no greater than 32 to show impoved functional ability. STG Duration 02/15/22 [facility] Goal (LTG) Pt will improve quick dash score to no greater than 12 to show impoved functional ability. LTG Duration 03/27/22 Assessment Summary Assessment Took it easy today d/t pt soreness from fall. She was limited in flex and abd over 90 today at start of session but improved back to overhead to about 130 deg after manual treatment with some pain relief. Pt ecnouraged to follow up w/ Physical Therapy Plan Frequency and Duration Frequency of Treatment 1-2x/week Duration of Treatment 3 months Plan of Care Start Date 12/24/21 Plan of Care End Date 03/26/22 Next Visit Focus/Plan Next Note Type Treatment Note Next Visit Plan cont to progress AAROM and AROM, joint mobs & STM
--- NOTE | 2022-01-31 08:18 | PT.OTN ---
Current Diagnoses Strain of muscle(s) and tendon(s) of the rotator cuff of left shoulder, subsequent encounter (01/31/22) Physical Therapy Treatment Note PT-OP-A Visit Information Start: 12/13/21 18:02 Freq: Status: Active Protocol: Document 01/31/22 07:30 [facility] (Rec: 01/31/22 08:18 [facility] [id number]) Out-Patient Physical Therapy Visit Information Visit Information Visit Type Treatment Note Visit Note 24 visits per year Visit Start Time 07:34 Visit Stop Time 08:29 Total Visit Minutes 55 Visit Number 8 Number of AIRPLANE PILOT CROP DUSTING Visits 0 PT-OP-B Current Condition Start: 12/13/21 18:02 Freq: Status: Active Protocol: Document 12/24/21 16:48 [facility] (Rec: 12/24/21 18:17 [facility] [id number]) Current Condition History of Current Condition Onset Date September 19 Current Complaints L shoulder RCR History of Current Condition Pt did PT for about a month or so with no improvement after a fall fwd into her arms around 4 years ago. R shoulder gives her trouble too . Pt reports fingers would get numb at night so she went ahead w/surgery. She gets less numbess in her hands now but it is still a problem. Pt has been the wall crawls, but does have good ROM. She saw PA for follow up about a month after but cancelled her follow up d /t not in w/PT yet. 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 She did follow her restrictions well from surgeon's office early on. Was getting neck pain earlier in recovery but not anymore. Pt reports she has to be very careful w/ movement. Pt R handed. Treatment Goals Patient/Caregiver Goals Be able lift kids, be able to lift overhead, be able to sleep on L side, be able to not feel like she has to be careful, be able to play w/6 y .o. w/o concern or limit. PT-OP-C Subjective Start: 12/13/21 18:02 Freq: Status: Active Protocol: Document 01/31/22 07:30 [facility] (Rec: 01/31/22 08:18 [facility] [id number]) OP-PT Subjective Patient Comments Patient Comments Pt reports reports tingling in her hands every night the past couple fo weeks. Neck has been popping. Feels like [place] is getting a little more ROM behind the back and doesn't feel like she tweaks it when moving as much PT-OP-F Manual Assessment Start: 12/13/21 18:02 Freq: Status: Active Protocol: Document 12/24/21 16:48 [facility] (Rec: 12/24/21 18:17 [facility] [id number]) Manual Assessments Soft Tissue Assessment Soft Tissue Mobility Assessment tightness in pec, biceps, deltoid, scar adherance, infra & supraspinatus tightness, scalenes, UT, LS Joint Mobility Assessment Joint Mobility Assessment tightness in GH capsule w/hard end feels w/PROM PT-OP-J Posture/Palpation/Skin Start: 12/13/21 18:02 Freq: Status: Active Protocol: Document 12/24/21 16:48 [facility] (Rec: 12/24/21 18:17 [facility] [id number]) Posture Evaluation [facility] Postural Classification System [facility] Postural Classifications Posterior/Posterior Elbow Flexion Test 0 Comments Posture Comments ant tipped scap, abd, elevated scap, IR of UE L>R, slight inc kyphosis & ant neck PT-OP-K Range of Motion Start: 12/13/21 18:02 Freq: Status: Active Protocol: Document 12/24/21 16:48 [facility] (Rec: 12/24/21 18:17 [facility] [id number]) Shoulder Goniometric Range of Motion Shoulder Left Passive Testing Position Supine Flexion 120 Abduction 80 External Rotation at 45 degrees 36 Abduction External Rotation at 0 degrees Abduction 11 Internal Rotation 45 Comments IR measured in scapular plane Right Active Flexion 162 Extension 67 Abduction 180 External Rotation at 0 degrees Abduction 69 Internal Rotation Behind Back (text) T6 Left Active Testing Position Standing Flexion 99 Extension 34 Abduction 49 External Rotation at 0 degrees Abduction 19 Internal Rotation Behind Back (text) lat inf buttock PT-OP-M Strength Start: 12/13/21 18:02 Freq: Status: Active Protocol: Document 12/24/21 16:48 [facility] (Rec: 12/24/21 18:17 [facility] [id number]) Shoulder Strength Shoulder Manual Muscle Testing Left Flexion 3+ Fair+ Extension 3+ Fair+ Abduction (C5) 2+ Poor+ External Rotation 3 Fair Internal Rotation 3 Fair Comments pain w/resistance Right Flexion 5 Normal Extension 5 Normal Abduction (C5) 5 Normal External Rotation 5 Normal Internal Rotation 5 Normal Elbow/Forearm Strength Elbow and Forearm Manual Muscle Testing Left Flexion (C6) 4- Good- Extension (C7) 4- Good- Pronation 4- Good- Supination 4- Good- Right Flexion (C6) 5 Normal Extension (C7) 5 Normal Pronation 5 Normal Supination 5 Normal [facility] Rn/Pinch Strength Hand Dominance Hand Dominance Right Hand Strength Right Comments 31kg, 34 kg, 29 kg Left Comments 25lb, 22kg,24kg PT-OP-Q Treatments Start: 12/13/21 18:02 Freq: Status: Active Protocol: Document 01/31/22 07:30 [facility] (Rec: 01/31/22 08:18 [facility] [id number]) Cardio Equipment Upper Body Ergometer (UBE) Duration (Minutes) 5 RPM 60 Seat Position 13 Height 6 Other fwd/back Therapeutic Exercises Prone Exercises scaption Side left Reps/Minutes 8 Comments available range ext Side left Equipment Used 1# Reps/Minutes 15 Comments cues for scap Habd Side left Reps/Minutes 15 Comments available range w/cues for scap Sidelying Exercises open book Side bilateral Reps/Minutes 10 ea Sitting Exercises ER Sitting Exercise Name 90/90 Side left Reps/Minutes 15 Comments elbow supported pully Sitting Exercise Name AAROM: flex, scaption, abd, IR Side left Reps/Minutes 10 ea Standing Exercises ER Side left Equipment Used L1 Reps/Minutes 15 IR Side left Equipment Used L1 Reps/Minutes 15 ext Side bilateral Equipment Used Lvl 2 Reps/Minutes 20 Manual Therapy Treatment Soft Tissue Mobilization L scap, neck Body Location L pecs, post delt, infra, supraspinatus, rhomboids, LT, mid trap Mobilization Type Myofascial Release,Strumming, Sustained Pressure Intensity/Depth Moderate Joint Mobilizations ribs Comments 1-2 L AP & caudal FM GH Joint L Direction post, distraction, inf, lat glide FM Grade III PT-OP-R Modalities Start: 12/13/21 18:02 Freq: Status: Active Protocol: Document 01/31/22 07:30 [facility] (Rec: 01/31/22 08:18 [facility] [id number]) Electric Stimulation Electric Stimulation Interferential Current (IFC) Body Location L shoulder Duration (Minutes) 15 Combined With Heat/Cold Cold Pack PT-OP-T Assessment and Plan Start: 12/13/21 18:02 Freq: Status: Active Protocol: Document 01/31/22 07:30 [facility] (Rec: 01/31/22 08:18 [facility] [id number]) Physical Therapy Assessment Goals functional Short Term Goal (STG) Pt will be able to sleep on L side comfortably STG Duration 02/23/22 Correction Goal (LTG) 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 LTG Duration 03/26/22 strength Short Term Goal (STG) Pt will be indep w/HEP STG Duration 02/15/22 Correction Goal (LTG) Pt will score 5/5 on EFT and MMT of L shoulder and elbow w/ o pain in order to allow her to do her typical fucntional activities w/o pain or weakness. LTG Duration 03/26/22 ROM Short Term Goal (STG) Pt will improve AROM L flex to at least 120, Abd to 90 and ext to 45 to allow greater reaching ability. STG Duration 02/15/22 Correction Goal (LTG) Pt will have w/in 90% range of RUE AROM in L shoulder to allow for her to do ADLs, and job related activtiies w/o restriction LTG Duration 03/26/22 quick DASH Impairment 45.45 Short Term Goal (STG) Pt will improve quick dash score to no greater than 32 to show impoved functional ability. STG Duration 02/15/22 Correction Goal (LTG) Pt will improve quick dash score to no greater than 12 to show impoved functional ability. LTG Duration 03/27/22 Assessment Summary Assessment Pt did well with exercises today and was able to tolerate more strenthening exercises. AROM improving but ribs elevated on L likely relatin to inc tingling in fingers and shoulder pain Physical Therapy Plan Frequency and Duration Frequency of Treatment 1-2x/week Duration of Treatment 3 months Plan of Care Start Date 12/24/21 Plan of Care End Date 03/26/22 Next Visit Focus/Plan Next Note Type Treatment Note Next Visit Plan cont to advance ROM with manual and exercises and start to progress strengthening
--- NOTE | 2022-02-05 07:26 | PT-OP ANOTE ---
Pt cancelled minutes before appt due to daughter having migraine and needing to take other daughter to school.
--- NOTE | 2022-02-13 08:18 | PT.OTN ---
Current Diagnoses Strain of muscle(s) and tendon(s) of the rotator cuff of left shoulder, subsequent encounter (02/13/22) Physical Therapy Treatment Note PT-OP-A Visit Information Start: 12/13/21 18:02 Freq: Status: Active Protocol: Document 02/13/22 07:33 [facility] (Rec: 02/13/22 08:21 [facility] [id number]) Out-Patient Physical Therapy Visit Information Visit Information Visit Type Treatment Note Visit Note 24 visits per yr New soon for PN. Pt reports daughter assists her with little ones in am so can attend PT and back to work soon so not sure who will relieve her to come to PT, may need adjust appts. Visit Start Time 07:33 Visit Stop Time 08:18 Total Visit Minutes 45 Visit Number 9 Number of THIRD MILLER Visits 10 Precautions Precautions Debridement/decompression L shld 10/04, protocol in forms/ cards. PT-OP-B Current Condition Start: 12/13/21 18:02 Freq: Status: Active Protocol: Document 12/24/21 16:48 [facility] (Rec: 12/24/21 18:17 [facility] [id number]) Current Condition History of Current Condition Onset Date September 19 Current Complaints L shoulder RCR History of Current Condition Pt did PT for about a month or so with no improvement after a fall fwd into her arms around 4 years ago. R shoulder gives her trouble too . Pt reports fingers would get numb at night so she went ahead w/surgery. She gets less numbess in her hands now but it is still a problem. Pt has been the wall crawls, but does have good ROM. She saw PA for follow up about a month after but cancelled her follow up d /t not in w/PT yet. 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 She did follow her restrictions well from surgeon's office early on. Was getting neck pain earlier in recovery but not anymore. Pt reports she has to be very careful w/ movement. Pt R handed. Treatment Goals Patient/Caregiver Goals Be able lift kids, be able to lift overhead, be able to sleep on L side, be able to not feel like she has to be careful, be able to play w/6 y .o. w/o concern or limit. PT-OP-C Subjective Start: 12/13/21 18:02 Freq: Status: Active Protocol: Document 02/13/22 07:33 [facility] (Rec: 02/13/22 08:21 [facility] [id number]) OP-PT Subjective Patient Comments Patient Comments Pt reports having sciatic nerve pain that extends down leg to toes. Is using friend's tense unit but think using to much so not sure is long lasting how. Utilized salon paws (lidocaine patch) and not sure helping anymore. Did see her phyician clinic DO and didn't thing helped with pressure and not mobilizations like thought. Has brain stormed with employer sitting posture feeding the twins (3 mo old), thinks how she's sitting can be irritant and trying to sit on Tball andseems to help. PT-OP-F Manual Assessment Start: 12/13/21 18:02 Freq: Status: Active Protocol: Document 12/24/21 16:48 [facility] (Rec: 12/24/21 18:17 [facility] [id number]) Manual Assessments Soft Tissue Assessment Soft Tissue Mobility Assessment tightness in pec, biceps, deltoid, scar adherance, infra & supraspinatus tightness, scalenes, UT, LS Joint Mobility Assessment Joint Mobility Assessment tightness in GH capsule w/hard end feels w/PROM PT-OP-J Posture/Palpation/Skin Start: 12/13/21 18:02 Freq: Status: Active Protocol: Document 12/24/21 16:48 [facility] (Rec: 12/24/21 18:17 [facility] [id number]) Posture Evaluation [facility] Postural Classification System [facility] Postural Classifications Posterior/Posterior Elbow Flexion Test 0 Comments Posture Comments ant tipped scap, abd, elevated scap, IR of UE L>R, slight inc kyphosis & ant neck PT-OP-K Range of Motion Start: 12/13/21 18:02 Freq: Status: Active Protocol: Document 12/24/21 16:48 [facility] (Rec: 12/24/21 18:17 [facility] [id number]) Shoulder Goniometric Range of Motion Shoulder Left Passive Testing Position Supine Flexion 120 Abduction 80 External Rotation at 45 degrees 36 Abduction External Rotation at 0 degrees Abduction 11 Internal Rotation 45 Comments IR measured in scapular plane Right Active Flexion 162 Extension 67 Abduction 180 External Rotation at 0 degrees Abduction 69 Internal Rotation Behind Back (text) T6 Left Active Testing Position Standing Flexion 99 Extension 34 Abduction 49 External Rotation at 0 degrees Abduction 19 Internal Rotation Behind Back (text) lat inf buttock PT-OP-M Strength Start: 12/13/21 18:02 Freq: Status: Active Protocol: Document 12/24/21 16:48 [facility] (Rec: 12/24/21 18:17 [facility] [id number]) Shoulder Strength Shoulder Manual Muscle Testing Left Flexion 3+ Fair+ Extension 3+ Fair+ Abduction (C5) 2+ Poor+ External Rotation 3 Fair Internal Rotation 3 Fair Comments pain w/resistance Right Flexion 5 Normal Extension 5 Normal Abduction (C5) 5 Normal External Rotation 5 Normal Internal Rotation 5 Normal Elbow/Forearm Strength Elbow and Forearm Manual Muscle Testing Left Flexion (C6) 4- Good- Extension (C7) 4- Good- Pronation 4- Good- Supination 4- Good- Right Flexion (C6) 5 Normal Extension (C7) 5 Normal Pronation 5 Normal Supination 5 Normal Hand Sub Prior/Pinch Strength Hand Dominance Hand Dominance Right Hand Strength Right Comments 31kg, 34 kg, 29 kg Left Comments 25lb, 22kg,24kg PT-OP-Q Treatments Start: 12/13/21 18:02 Freq: Status: Active Protocol: Document 02/13/22 07:33 [facility] (Rec: 02/13/22 08:21 SP [id number]) Cardio Equipment Upper Body Ergometer (UBE) Duration (Minutes) 6 RPM 60 Seat Position 13 Height 6 Other fwd/back Therapeutic Exercises Supine Exercises pec stretch Supine Exercise Name verbal review add home Equipment Used over pool noodle vs doorway due to pain in doorway Reps/Minutes 30 : scap retract and relax stretch w/ kids belly time Comments good verbal will work best- check next tx flex Supine Exercise Name verbal review Side left Equipment Used cane, next tx over noodle on floor Reps/Minutes 10 x5 sec hold Prone Exercises scaption Prone Exercise Name HEP reviewed Side left Reps/Minutes 8 Comments available range ext Prone Exercise Name HEP reviewed Side left Equipment Used 1#>#2 (discussed waterbottle home for wt) Reps/Minutes 2x15 Comments cues for scap Habd Prone Exercise Name HEP reviewed Side left Reps/Minutes 15 Comments available range w/cues for scap retract inf glide Sidelying Exercises open book Side bilateral Reps/Minutes 10 ea Comments cued5 re scapular retraction depression Sidelying Exercise Name warm up in am Side left Reps/Minutes x10 Comments good feedback painfree Sitting Exercises UT, LS stretch Sitting Exercise Name Review HEP Side bilateral Reps/Minutes 30 stretch ea Comments good feedback stretch-over pressure with opp UE scap retraction/depression Sitting Exercise Name reviewHEP Side bilateral Reps/Minutes 3 sec hold x10 Comments cued tall posturing Standing Exercises Self STMs Standing Exercise Name review HEP: UT, inter scap Side left Equipment Used ball on wall post scap, theracane post neck Reps/Minutes 1 min Comments MWM scap ROM/ head nods and turns Manual Therapy Treatment Soft Tissue Mobilization L scap, neck Body Location L pecs, post delt, infra, supraspinatus, rhomboids, LT, mid trap Mobilization Type Myofascial Release,Strumming, Sustained Pressure Intensity/Depth Moderate Body Position Sidelying Joint Mobilizations GH Joint L Direction post, distraction, inf, lat glide FM Grade II scapulothoracic PNF Joint scap mobs into all planes Self-Care/Home Management Treatment Education Patient Education Body Mechanics,Home Exercise Program,Joint Protection,Pain Management,Safety Other Education Discussed sit posture positioning and use of pillows in lap and bottle prop, 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 Introduced self massage using theracane (will be buy for home [employer] vs [email or web address]). Pec stretch over noodle to allow scapular posterior mobiltiy and anterior stretch. PT-OP-R Modalities Start: 12/13/21 18:02 Freq: Status: Active Protocol: Document 01/31/22 07:30 [facility] (Rec: 01/31/22 08:18 [facility] [id number]) Electric Stimulation Electric Stimulation Interferential Current (IFC) Body Location L shoulder Duration (Minutes) 15 Combined With Heat/Cold Cold Pack PT-OP-T Assessment and Plan Start: 12/13/21 18:02 Freq: Status: Active Protocol: Document 02/13/22 07:33 SP (Rec: 02/13/22 08:21 SP [id number]) Physical Therapy Assessment Goals functional Short Term Goal (STG) Pt will be able to sleep on L side comfortably STG Duration 02/23/22 Box Office Attendant Goal (LTG) 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 LTG Duration 03/26/22 strength Short Term Goal (STG) Pt will be indep w/HEP STG Duration 02/15/22 Box Office Attendant Goal (LTG) Pt will score 5/5 on EFT and MMT of L shoulder and elbow w/ o pain in order to allow her to do her typical fucntional activities w/o pain or weakness. LTG Duration 03/26/22 ROM Short Term Goal (STG) Pt will improve AROM L flex to at least 120, Abd to 90 and ext to 45 to allow greater reaching ability. STG Duration 02/15/22 Box Office Attendant Goal (LTG) Pt will have w/in 90% range of RUE AROM in L shoulder to allow for her to do ADLs, and job related activtiies w/o restriction LTG Duration 03/26/22 quick DASH Impairment 45.45 Short Term Goal (STG) Pt will improve quick dash score to no greater than 32 to show impoved functional ability. STG Duration 02/15/22 Box Office Attendant Goal (LTG) Pt will improve quick dash score to no greater than 12 to show impoved functional ability. LTG Duration 03/27/22 Assessment Summary Assessment Pt responds well to strengthening HEP, able to increase DB to 2# and knows now use waterbottle and can do off bed not to low. 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 Physical Therapy Plan Frequency and Duration Frequency of Treatment 1-2x/week Duration of treatment (weeks) 12 Plan of Care Start Date 12/24/21 Plan of Care End Date 03/26/22 Therapeutic Interventions Therapeutic Interventions Aquatic Therapy,Home Exercise Program,Joint Mobilizations, Manual Therapy,Neuromuscular Re-education,Orthotic/ Prosthetic Management,Patient/ Caregiver Education,Self-Care/ Home Management,Soft Tissue Mobilization,Taping, Therapeutic Activities, Therapeutic Exercises Modalities Cold Pack/Ice Massage,Electric Stimulation,Hot Packs, Infrared Therapy,Ultrasound Next Visit Focus/Plan Next Note Type Treatment Note Next Visit Plan Next tx: review prone HEP, add supine over noodle UE FF, HABD, serratus punch. POC cont to advance ROM with manual and exercises and start to progress strengthening
--- NOTE | 2022-02-19 08:15 | PT.OTN ---
Current Diagnoses Strain of muscle(s) and tendon(s) of the rotator cuff of left shoulder, subsequent encounter (02/19/22) Physical Therapy Treatment Note PT-OP-A Visit Information Start: 12/13/21 18:02 Freq: Status: Active Protocol: Document 02/19/22 07:33 SP (Rec: 02/19/22 08:18 SP [id number]) Out-Patient Physical Therapy Visit Information Visit Information Visit Type Treatment Note Visit Note 24 visits per yr New soon for PN. Pt reports daughter assists her with little ones in am so can attend PT and back to work soon so not sure who will relieve her to come to PT, may need adjust appts. Visit Start Time 07:33 Visit Stop Time 08:15 Total Visit Minutes 42 Visit Number 10 Number of CUTTER WET MACHINE Visits 2 Precautions Precautions Debridement/decompression L shld 10/04, protocol in forms/ cards. PT-OP-B Current Condition Start: 12/13/21 18:02 Freq: Status: Active Protocol: Document 12/24/21 16:48 [facility] (Rec: 12/24/21 18:17 [facility] [id number]) Current Condition History of Current Condition Onset Date September 19 Current Complaints L shoulder RCR History of Current Condition Pt did PT for about a month or so with no improvement after a fall fwd into her arms around 4 years ago. R shoulder gives her trouble too . Pt reports fingers would get numb at night so she went ahead w/surgery. She gets less numbess in her hands now but it is still a problem. Pt has been the wall crawls, but does have good ROM. She saw PA for follow up about a month after but cancelled her follow up d /t not in w/PT yet. 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 She did follow her restrictions well from surgeon's office early on. Was getting neck pain earlier in recovery but not anymore. Pt reports she has to be very careful w/ movement. Pt R handed. Treatment Goals Patient/Caregiver Goals Be able lift kids, be able to lift overhead, be able to sleep on L side, be able to not feel like she has to be careful, be able to play w/6 y .o. w/o concern or limit. PT-OP-C Subjective Start: 12/13/21 18:02 Freq: Status: Active Protocol: Document 02/19/22 07:33 SP (Rec: 02/19/22 08:18 SP [id number]) OP-PT Subjective Patient Comments Patient Comments Pt reports saw chiropractor this week and feeling gained more ROM in neck, back but still pretty stiff in am when wakes up. Tried ball roll glut for diminishing piriformis pain and semi helpful. 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 Has follow up appt with ortho this month in week or so. She said neck was awful yesterday but ok today. States is getting tingling pain RLB down leg laterally thigh, lower leg to anterior 1-2MTP dorsal surface. PT-OP-F Manual Assessment Start: 12/13/21 18:02 Freq: Status: Active Protocol: Document 12/24/21 16:48 [facility] (Rec: 12/24/21 18:17 [facility] [id number]) Manual Assessments Soft Tissue Assessment Soft Tissue Mobility Assessment tightness in pec, biceps, deltoid, scar adherance, infra & supraspinatus tightness, scalenes, UT, LS Joint Mobility Assessment Joint Mobility Assessment tightness in GH capsule w/hard end feels w/PROM PT-OP-J Posture/Palpation/Skin Start: 12/13/21 18:02 Freq: Status: Active Protocol: Document 12/24/21 16:48 [facility] (Rec: 12/24/21 18:17 [facility] [id number]) Posture Evaluation [facility] Postural Classification System Yoel Postural Classifications Posterior/Posterior Elbow Flexion Test 0 Comments Posture Comments ant tipped scap, abd, elevated scap, IR of UE L>R, slight inc kyphosis & ant neck PT-OP-K Range of Motion Start: 12/13/21 18:02 Freq: Status: Active Protocol: Document 12/24/21 16:48 [facility] (Rec: 12/24/21 18:17 [facility] [id number]) Shoulder Goniometric Range of Motion Shoulder Left Passive Testing Position Supine Flexion 120 Abduction 80 External Rotation at 45 degrees 36 Abduction External Rotation at 0 degrees Abduction 11 Internal Rotation 45 Comments IR measured in scapular plane Right Active Flexion 162 Extension 67 Abduction 180 External Rotation at 0 degrees Abduction 69 Internal Rotation Behind Back (text) T6 Left Active Testing Position Standing Flexion 99 Extension 34 Abduction 49 External Rotation at 0 degrees Abduction 19 Internal Rotation Behind Back (text) lat inf buttock PT-OP-M Strength Start: 12/13/21 18:02 Freq: Status: Active Protocol: Document 12/24/21 16:48 [facility] (Rec: 12/24/21 18:17 [facility] [id number]) Shoulder Strength Shoulder Manual Muscle Testing Left Flexion 3+ Fair+ Extension 3+ Fair+ Abduction (C5) 2+ Poor+ External Rotation 3 Fair Internal Rotation 3 Fair Comments pain w/resistance Right Flexion 5 Normal Extension 5 Normal Abduction (C5) 5 Normal External Rotation 5 Normal Internal Rotation 5 Normal Elbow/Forearm Strength Elbow and Forearm Manual Muscle Testing Left Flexion (C6) 4- Good- Extension (C7) 4- Good- Pronation 4- Good- Supination 4- Good- Right Flexion (C6) 5 Normal Extension (C7) 5 Normal Pronation 5 Normal Supination 5 Normal Hand Donkey Ride Operator/Pinch Strength Hand Dominance Hand Dominance Right Hand Strength Right Comments 31kg, 34 kg, 29 kg Left Comments 25lb, 22kg,24kg PT-OP-Q Treatments Start: 12/13/21 18:02 Freq: Status: Active Protocol: Document 02/19/22 07:33 SP (Rec: 02/19/22 08:18 SP [id number]) Cardio Equipment Upper Body Ergometer (UBE) Duration (Minutes) 6 RPM 60 Seat Position 13 Height 6 Other fwd/back Therapeutic Exercises Supine Exercises Sciatic nerve glide Supine Exercise Name reviewed Pirfor stretch gave last tx, added w/ APs Side right Reps/Minutes x8 reps Comments unable do PF stretch but ok with glide pec stretch Supine Exercise Name review add home: 1. stretch 2. HABD 3. FF 4. 1/2 X Resistance TB #1 Equipment Used over pool noodle Reps/Minutes 30 stretch various angles then x10 TB each w/ TB Comments no pain shld, good muscle effort ER Supine Exercise Name at side AAROM Side left Equipment Used cane, towel under arm/trunk Reps/Minutes 10 x5 sec hold Comments cued Standing Exercises ER Side left Equipment Used L1 Reps/Minutes 15 ext Side bilateral Equipment Used Lvl 2 Reps/Minutes 20 Manual Therapy Treatment Soft Tissue Mobilization L scap, neck Body Location L pecs, deltoid, UT, prox bicep Mobilization Type Myofascial Release,Strumming Intensity/Depth Moderate Body Position Sidelying Joint Mobilizations GH Joint L Direction post, distraction, inf, lat glide FM Grade II PT-OP-R Modalities Start: 12/13/21 18:02 Freq: Status: Active Protocol: Document 02/19/22 07:33 SP (Rec: 02/19/22 08:18 SP [id number]) Hot Pack/Cold Pack Treatment CP Location LB Patient Position Supine Treatment Duration (minutes) 10 Comments Good feedback relief from LBP PT-OP-T Assessment and Plan Start: 12/13/21 18:02 Freq: Status: Active Protocol: Document 02/19/22 07:33 SP (Rec: 02/19/22 08:18 SP [id number]) Physical Therapy Assessment Goals functional Short Term Goal (STG) Pt will be able to sleep on L side comfortably 02/19: progressing: can sleep on L side for little bit but discomfort lateral hips feel like laying on cement with back pain lately. Is using pillow between BLEs. STG Duration 02/23/22 progressin/4 Retirement Goal (LTG) 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 02/19: GOAL MET: able to lift them over head. LTG Duration 03/26/22 GOAL MET 02/19/22 strength Short Term Goal (STG) Pt will be indep w/HEP: 02/19/22: Progressing: uses home wand FF/ABD/ER STG Duration 02/15/22 Loss Control Manager Goal (LTG) Pt will score 5/5 on EFT and MMT of L shoulder and elbow w/ o pain in order to allow her to do her typical fucntional activities w/o pain or weakness. LTG Duration 03/26/22 ROM Short Term Goal (STG) Pt will improve AROM L flex to at least 120, Abd to 90 and ext to 45 to allow greater reaching ability. STG Duration 02/15/22 Retirement Goal (LTG) Pt will have w/in 90% range of RUE AROM in L shoulder to allow for her to do ADLs, and job related activtiies w/o restriction LTG Duration 03/26/22 quick DASH Impairment 45.45 Short Term Goal (STG) Pt will improve quick dash score to no greater than 32 to show impoved functional ability. STG Duration 02/15/22 Loss Control Manager Goal (LTG) Pt will improve quick dash score to no greater than 12 to show impoved functional ability. LTG Duration 03/27/22 Assessment Summary Assessment Pt good muscle effort w/ TB with supine ex today response but LB irrirtated over noodle today, will perform floor/ bed at home. She states isn't doing wt HEP prone more ROM. Good feedback response to CP on LB during UE HEP w/ wand and sciatic nerve glide to support standing. Physical Therapy Plan Frequency and Duration Frequency of Treatment 1-2x/week Duration of treatment (weeks) 12 Plan of Care Start Date 12/24/21 Plan of Care End Date 03/26/22 Therapeutic Interventions Therapeutic Interventions Aquatic Therapy,Home Exercise Program,Joint Mobilizations, Manual Therapy,Neuromuscular Re-education,Orthotic/ Prosthetic Management,Patient/ Caregiver Education,Self-Care/ Home Management,Soft Tissue Mobilization,Taping, Therapeutic Activities, Therapeutic Exercises Modalities Cold Pack/Ice Massage,Electric Stimulation,Hot Packs, Infrared Therapy,Ultrasound Next Visit Focus/Plan Next Note Type Treatment Note Next Visit Plan Next tx: review prone HEP, add supine over noodle UE FF, HABD, serratus punch. POC cont to advance ROM with manual and exercises and start to progress strengthening
--- NOTE | 2022-02-22 08:15 | PT.OTN ---
Current Diagnoses Strain of muscle(s) and tendon(s) of the rotator cuff of left shoulder, subsequent encounter (02/22/22) Physical Therapy Treatment Note PT-OP-A Visit Information Start: 12/13/21 18:02 Freq: Status: Active Protocol: Document 02/22/22 07:32 SP (Rec: 02/22/22 08:17 SP [id number]) Out-Patient Physical Therapy Visit Information Visit Information Visit Type Treatment Note Visit Note 24 visits per yr New soon for PN. Pt reports daughter assists her with little ones in am so can attend PT and back to work soon so not sure who will relieve her to come to PT, may need adjust appts. Visit Start Time 07:32 Visit Stop Time 08:15 Total Visit Minutes 43 Visit Number 11 Number of RESAW CARRIAGE OPERATOR Visits 3 Precautions Precautions Debridement/decompression L shld 10/04, protocol in forms/ cards. PT-OP-B Current Condition Start: 12/13/21 18:02 Freq: Status: Active Protocol: Document 12/24/21 16:48 [facility] (Rec: 12/24/21 18:17 [facility] [id number]) Current Condition History of Current Condition Onset Date September 19 Current Complaints L shoulder RCR History of Current Condition Pt did PT for about a month or so with no improvement after a fall fwd into her arms around 4 years ago. R shoulder gives her trouble too . Pt reports fingers would get numb at night so she went ahead w/surgery. She gets less numbess in her hands now but it is still a problem. Pt has been the wall crawls, but does have good ROM. She saw PA for follow up about a month after but cancelled her follow up d /t not in w/PT yet. 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 She did follow her restrictions well from surgeon's office early on. Was getting neck pain earlier in recovery but not anymore. Pt reports she has to be very careful w/ movement. Pt R handed. Treatment Goals Patient/Caregiver Goals Be able lift kids, be able to lift overhead, be able to sleep on L side, be able to not feel like she has to be careful, be able to play w/6 y .o. w/o concern or limit. PT-OP-C Subjective Start: 12/13/21 18:02 Freq: Status: Active Protocol: Document 02/22/22 07:32 SP (Rec: 02/22/22 08:17 SP [id number]) OP-PT Subjective Patient Comments Patient Comments Pt stated saw chiropractor and had an adjustment mid back inter scap, hips and sore afterword but doesn't give exercises after to support range gained. She stated cant sit for long periods of time not good, stiffens up. Her c hanges in sit posture and moving learned with PT to support alignment. She reports the other parts of body just not doing well at this time. She is pleased with gains in shld making. PT-OP-F Manual Assessment Start: 12/13/21 18:02 Freq: Status: Active Protocol: Document 12/24/21 16:48 [facility] (Rec: 12/24/21 18:17 [facility] [id number]) Manual Assessments Soft Tissue Assessment Soft Tissue Mobility Assessment tightness in pec, biceps, deltoid, scar adherance, infra & supraspinatus tightness, scalenes, UT, LS Joint Mobility Assessment Joint Mobility Assessment tightness in GH capsule w/hard end feels w/PROM PT-OP-J Posture/Palpation/Skin Start: 12/13/21 18:02 Freq: Status: Active Protocol: Document 12/24/21 16:48 [facility] (Rec: 12/24/21 18:17 [facility] [id number]) Posture Evaluation [facility] Postural Classification System Yoel Postural Classifications Posterior/Posterior Elbow Flexion Test 0 Comments Posture Comments ant tipped scap, abd, elevated scap, IR of UE L>R, slight inc kyphosis & ant neck PT-OP-K Range of Motion Start: 12/13/21 18:02 Freq: Status: Active Protocol: Document 02/22/22 07:32 SP (Rec: 02/22/22 08:17 SP [id number]) Shoulder Goniometric Range of Motion Shoulder Left Active Testing Position Standing Flexion 149 Extension 40 Abduction 149 External Rotation at 0 degrees Abduction 60 Internal Rotation Behind Back (text) lat inf buttock Comments L shld AROM: gained FF 50 deg (was 99 deg) gained ABD 100 deg (was 49 deg ) gained ext 6 deg (was 34 deg) gained ER 41 deg (was 19 deg) No increase in IR (same lat inferior buttocks) PT-OP-M Strength Start: 12/13/21 18:02 Freq: Status: Active Protocol: Document 12/24/21 16:48 [facility] (Rec: 12/24/21 18:17 [facility] [id number]) Shoulder Strength Shoulder Manual Muscle Testing Left Flexion 3+ Fair+ Extension 3+ Fair+ Abduction (C5) 2+ Poor+ External Rotation 3 Fair Internal Rotation 3 Fair Comments pain w/resistance Right Flexion 5 Normal Extension 5 Normal Abduction (C5) 5 Normal External Rotation 5 Normal Internal Rotation 5 Normal Elbow/Forearm Strength Elbow and Forearm Manual Muscle Testing Left Flexion (C6) 4- Good- Extension (C7) 4- Good- Pronation 4- Good- Supination 4- Good- Right Flexion (C6) 5 Normal Extension (C7) 5 Normal Pronation 5 Normal Supination 5 Normal Hand Delivery Professional/Pinch Strength Hand Dominance Hand Dominance Right Hand Strength Right Comments 31kg, 34 kg, 29 kg Left Comments 25lb, 22kg,24kg PT-OP-Q Treatments Start: 12/13/21 18:02 Freq: Status: Active Protocol: Document 02/22/22 07:32 SP (Rec: 02/22/22 08:17 SP [id number]) Therapeutic Exercises Prone Exercises scaption Prone Exercise Name HEP reviewed Side left Reps/Minutes 8 Comments available range ext Prone Exercise Name HEP reviewed Side left Equipment Used #2>#3 DB Reps/Minutes 2x15 Comments good form (states not doing at home, more standing HEP) Habd Prone Exercise Name HEP reviewed Side left Resistance AROM Reps/Minutes 15 Comments available range w/cues for scap retract inf glide ( limited range) Sidelying Exercises abd Side left Equipment Used 1# Reps/Minutes 15 Comments cued alignment stacked ER Side left Resistance AROM x5, #1 DB x10 Reps/Minutes 20 Comments towel at elbow, comfortable range Standing Exercises stretch Standing Exercise Name IR stretch Side bilateral Reps/Minutes 20 sec x3 Comments cued posturing no UT/ protraction compensations Manual Therapy Treatment Soft Tissue Mobilization L scap, neck Body Location L pecs, deltoid, UT, prox bicep Mobilization Type Myofascial Release,Strumming Intensity/Depth Moderate Body Position Sidelying Joint Mobilizations GH Joint L Direction post, distraction, inf, lat glide FM Grade II PT-OP-R Modalities Start: 12/13/21 18:02 Freq: Status: Active Protocol: Document 02/19/22 07:33 SP (Rec: 02/19/22 08:18 SP [id number]) Hot Pack/Cold Pack Treatment CP Location LB Patient Position Supine Treatment Duration (minutes) 10 Comments Good feedback relief from LBP PT-OP-T Assessment and Plan Start: 12/13/21 18:02 Freq: Status: Active Protocol: Document 02/22/22 07:32 SP (Rec: 02/22/22 08:17 SP [id number]) Physical Therapy Assessment Goals functional Short Term Goal (STG) Pt will be able to sleep on L side comfortably 02/19: progressing: can sleep on L side for little bit but discomfort lateral hips feel like laying on cement with back pain lately. Is using pillow between BLEs. 02/22: can fall asleep comfortably but when wakes up hurts and fingers numb. 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 02/19: GOAL MET: able to lift them over head. LTG Duration 03/26/22 GOAL MET 02/19/22 strength Short Term Goal (STG) Pt will be indep w/HEP: 02/19/22: Progressing: uses home wand FF/ABD/ER STG Duration 02/15/22 Sales Representative Aircraft Goal (LTG) Pt will score 5/5 on EFT and MMT of L shoulder and elbow w/ o pain in order to allow her to do her typical fucntional activities w/o pain or weakness. LTG Duration 03/26/22 ROM Short Term Goal (STG) Pt will improve AROM L flex to at least 120, Abd to 90 and ext to 45 to allow greater reaching ability. STG Duration 02/15/22 Sales Representative Aircraft Goal (LTG) Pt will have w/in 90% range of RUE AROM in L shoulder to allow for her to do ADLs, and job related activtiies w/o restriction LTG Duration 03/26/22 quick DASH Impairment 45.45 Short Term Goal (STG) Pt will improve quick dash score to no greater than 32 to show impoved functional ability. STG Duration 02/15/22 Intermediate Goal (LTG) Pt will improve quick dash score to no greater than 12 to show impoved functional ability. 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 She is being afected with pain in trunk/ legs limites her sitting and standing at this time, seeing chiropractor for support. She has follow up with orhto next week. Physical Therapy Plan Frequency and Duration Frequency of Treatment 1-2x/week Duration of treatment (weeks) 12 Plan of Care Start Date 12/24/21 Plan of Care End Date 03/26/22 Therapeutic Interventions Therapeutic Interventions Aquatic Therapy,Home Exercise Program,Joint Mobilizations, Manual Therapy,Neuromuscular Re-education,Orthotic/ Prosthetic Management,Patient/ Caregiver Education,Self-Care/ Home Management,Soft Tissue Mobilization,Taping, Therapeutic Activities, Therapeutic Exercises Modalities Cold Pack/Ice Massage,Electric Stimulation,Hot Packs, Infrared Therapy,Ultrasound Next Visit Focus/Plan Next Note Type Treatment Note Next Visit Plan Assess IR stretch added last tx. Next tx: review prone HEP, add supine over noodle UE FF, HABD, serratus punch. POC cont to advance ROM with manual and exercises and start to progress strengthening
--- NOTE | 2022-02-22 08:15 | PT.OTN ---
Current Diagnoses Strain of muscle(s) and tendon(s) of the rotator cuff of left shoulder, subsequent encounter (02/22/22) Physical Therapy Treatment Note PT-OP-A Visit Information Start: 12/13/21 18:02 Freq: Status: Active Protocol: Document 02/22/22 07:32 SP (Rec: 02/22/22 08:17 SP [id number]) Out-Patient Physical Therapy Visit Information Visit Information Visit Type Treatment Note Visit Note 24 visits per yr New soon for PN. Pt reports daughter assists her with little ones in am so can attend PT and back to work soon so not sure who will relieve her to come to PT, may need adjust appts. Visit Start Time 07:32 Visit Stop Time 08:15 Total Visit Minutes 43 Visit Number 11 Number of MAGAZINE KEEPER Visits 3 Precautions Precautions Debridement/decompression L shld 10/04, protocol in forms/ cards. PT-OP-B Current Condition Start: 12/13/21 18:02 Freq: Status: Active Protocol: Document 12/24/21 16:48 [facility] (Rec: 12/24/21 18:17 [facility] [id number]) Current Condition History of Current Condition Onset Date September 19 Current Complaints L shoulder RCR History of Current Condition Pt did PT for about a month or so with no improvement after a fall fwd into her arms around 4 years ago. R shoulder gives her trouble too . Pt reports fingers would get numb at night so she went ahead w/surgery. She gets less numbess in her hands now but it is still a problem. Pt has been the wall crawls, but does have good ROM. She saw PA for follow up about a month after but cancelled her follow up d /t not in w/PT yet. 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 She did follow her restrictions well from surgeon's office early on. Was getting neck pain earlier in recovery but not anymore. Pt reports she has to be very careful w/ movement. Pt R handed. Treatment Goals Patient/Caregiver Goals Be able lift kids, be able to lift overhead, be able to sleep on L side, be able to not feel like she has to be careful, be able to play w/6 y .o. w/o concern or limit. PT-OP-C Subjective Start: 12/13/21 18:02 Freq: Status: Active Protocol: Document 02/22/22 07:32 SP (Rec: 02/22/22 08:17 SP [id number]) OP-PT Subjective Patient Comments Patient Comments Pt stated saw chiropractor and had an adjustment mid back inter scap, hips and sore afterword but doesn't give exercises after to support range gained. She stated cant sit for long periods of time not good, stiffens up. Her c hanges in sit posture and moving learned with PT to support alignment. She reports the other parts of body just not doing well at this time. She is pleased with gains in shld making. Patient Questionnaires Quick Dash- Upper Extremity Quick Dash UE Score 29.55 Quick Dash UE Impairment 20 to 39% Impaired (Score 20- 39) PT-OP-F Manual Assessment Start: 12/13/21 18:02 Freq: Status: Active Protocol: Document 12/24/21 16:48 [facility] (Rec: 12/24/21 18:17 [facility] [id number]) Manual Assessments Soft Tissue Assessment Soft Tissue Mobility Assessment tightness in pec, biceps, deltoid, scar adherance, infra & supraspinatus tightness, scalenes, UT, LS Joint Mobility Assessment Joint Mobility Assessment tightness in GH capsule w/hard end feels w/PROM PT-OP-J Posture/Palpation/Skin Start: 12/13/21 18:02 Freq: Status: Active Protocol: Document 12/24/21 16:48 [facility] (Rec: 12/24/21 18:17 [facility] [id number]) Posture Evaluation Yoel Postural Classification System Yoel Postural Classifications Posterior/Posterior Elbow Flexion Test 0 Comments Posture Comments ant tipped scap, abd, elevated scap, IR of UE L>R, slight inc kyphosis & ant neck PT-OP-K Range of Motion Start: 12/13/21 18:02 Freq: Status: Active Protocol: Document 02/22/22 07:32 SP (Rec: 02/22/22 08:17 SP [id number]) Shoulder Goniometric Range of Motion Shoulder Left Active Testing Position Standing Flexion 149 Extension 40 Abduction 149 External Rotation at 0 degrees Abduction 60 Internal Rotation Behind Back (text) lat inf buttock Comments L shld AROM: gained FF 50 deg (was 99 deg) gained ABD 100 deg (was 49 deg ) gained ext 6 deg (was 34 deg) gained ER 41 deg (was 19 deg) No increase in IR (same lat inferior buttocks) PT-OP-M Strength Start: 12/13/21 18:02 Freq: Status: Active Protocol: Document 12/24/21 16:48 [facility] (Rec: 12/24/21 18:17 [facility] [id number]) Shoulder Strength Shoulder Manual Muscle Testing Left Flexion 3+ Fair+ Extension 3+ Fair+ Abduction (C5) 2+ Poor+ External Rotation 3 Fair Internal Rotation 3 Fair Comments pain w/resistance Right Flexion 5 Normal Extension 5 Normal Abduction (C5) 5 Normal External Rotation 5 Normal Internal Rotation 5 Normal Elbow/Forearm Strength Elbow and Forearm Manual Muscle Testing Left Flexion (C6) 4- Good- Extension (C7) 4- Good- Pronation 4- Good- Supination 4- Good- Right Flexion (C6) 5 Normal Extension (C7) 5 Normal Pronation 5 Normal Supination 5 Normal Hand Supplier Development Manager/Pinch Strength Hand Dominance Hand Dominance Right Hand Strength Right Comments 31kg, 34 kg, 29 kg Left Comments 25lb, 22kg,24kg PT-OP-Q Treatments Start: 12/13/21 18:02 Freq: Status: Active Protocol: Document 02/22/22 07:32 SP (Rec: 02/22/22 08:17 SP [id number]) Therapeutic Exercises Prone Exercises scaption Prone Exercise Name HEP reviewed Side left Reps/Minutes 8 Comments available range ext Prone Exercise Name HEP reviewed Side left Equipment Used #2>#3 DB Reps/Minutes 2x15 Comments good form (states not doing at home, more standing HEP) Habd Prone Exercise Name HEP reviewed Side left Resistance AROM Reps/Minutes 15 Comments available range w/cues for scap retract inf glide ( limited range) Sidelying Exercises abd Side left Equipment Used 1# Reps/Minutes 15 Comments cued alignment stacked ER Side left Resistance AROM x5, #1 DB x10 Reps/Minutes 20 Comments towel at elbow, comfortable range Standing Exercises stretch Standing Exercise Name IR stretch Side bilateral Reps/Minutes 20 sec x3 Comments cued posturing no UT/ protraction compensations Manual Therapy Treatment Joint Mobilizations GH Joint L Direction post, distraction, inf, lat glide FM Grade II PT-OP-R Modalities Start: 12/13/21 18:02 Freq: Status: Active Protocol: Document 02/19/22 07:33 SP (Rec: 02/19/22 08:18 SP [id number]) Hot Pack/Cold Pack Treatment CP Location LB Patient Position Supine Treatment Duration (minutes) 10 Comments Good feedback relief from LBP PT-OP-T Assessment and Plan Start: 12/13/21 18:02 Freq: Status: Active Protocol: Document 02/22/22 07:32 SP (Rec: 02/22/22 08:17 SP [id number]) Physical Therapy Assessment Goals functional Short Term Goal (STG) Pt will be able to sleep on L side comfortably 02/19: progressing: can sleep on L side for little bit but discomfort lateral hips feel like laying on cement with back pain lately. Is using pillow between BLEs. 02/22: can fall asleep comfortably but when wakes up hurts and fingers numb. 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 02/19: GOAL MET: able to lift them over head. LTG Duration 03/26/22 GOAL MET 02/19/22 strength Short Term Goal (STG) Pt will be indep w/HEP: 02/19/22: Progressing: uses home wand FF/ABD/ER STG Duration 02/15/22 Technology Coach Goal (LTG) Pt will score 5/5 on EFT and MMT of L shoulder and elbow w/ o pain in order to allow her to do her typical fucntional activities w/o pain or weakness. LTG Duration 03/26/22 ROM Short Term Goal (STG) Pt will improve AROM L flex to at least 120, Abd to 90 and ext to 45 to allow greater reaching ability. STG Duration 02/15/22 Technology Coach Goal (LTG) Pt will have w/in 90% range of RUE AROM in L shoulder to allow for her to do ADLs, and job related activtiies w/o restriction LTG Duration 03/26/22 quick DASH Impairment 45.45 Short Term Goal (STG) Pt will improve quick dash score to no greater than 32 to show impoved functional ability. 02/22/22: progressing: score=29 .55 (20-39% impaired) STG Duration 02/15/22 progressin02/22/22 Residential Goal (LTG) Pt will improve quick dash score to no greater than 12 to show impoved functional ability. 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 She is being afected with pain in trunk/ legs limites her sitting and standing at this time, seeing chiropractor for support. She has follow up with orhto next week. Physical Therapy Plan Frequency and Duration Frequency of Treatment 1-2x/week Duration of treatment (weeks) 12 Plan of Care Start Date 12/24/21 Plan of Care End Date 03/26/22 Therapeutic Interventions Therapeutic Interventions Aquatic Therapy,Home Exercise Program,Joint Mobilizations, Manual Therapy,Neuromuscular Re-education,Orthotic/ Prosthetic Management,Patient/ Caregiver Education,Self-Care/ Home Management,Soft Tissue Mobilization,Taping, Therapeutic Activities, Therapeutic Exercises Modalities Cold Pack/Ice Massage,Electric Stimulation,Hot Packs, Infrared Therapy,Ultrasound Next Visit Focus/Plan Next Note Type Progress Note Next Visit Plan Pt due for updated PN, 11th visit today, making progress. see Goal feedback. Assess IR stretch added last tx. Next tx: review prone HEP, add supine over noodle UE FF, HABD, serratus punch. POC cont to advance ROM with manual and exercises and start to progress strengthening
--- NOTE | 2022-03-08 07:48 | PT-OP ANOTE ---
Pt has [employer] cancelled 4 appts unable to come in, no message left reasoning. Pt has appt with DESK REPORTER 03/12 and PT 03/26. She is due for PN, 11th visit last appt on 02/22, eval'd 12/24/21. DESK REPORTER called pt regarding cancelled appts even if >24 hrs like has been doing, policy of seeing >50% scheduled appts appts or potential risk of DC, benefits of keeping therapy appts to progress s/p ortho procedure for ROM and strengthening. 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 She is aware upcoming appts and will try to speak with employer about trying to make her appts.
--- NOTE | 2022-03-12 08:30 | PT.OTN ---
Addendum entered and electronically signed by Patti Morales, MENTAL HEALTH NURSE PRACTITIONER 03/12/22 14:41: JILLIAN Andino observed tx with permission of pt. Original Note: Current Diagnoses Strain of muscle(s) and tendon(s) of the rotator cuff of left shoulder, subsequent encounter (03/12/22) Physical Therapy Treatment Note PT-OP-A Visit Information Start: 12/13/21 18:02 Freq: Status: Active Protocol: Document 03/12/22 07:32 SP (Rec: 03/12/22 08:20 SP [id number]) Out-Patient Physical Therapy Visit Information Visit Information Visit Type Treatment Note Visit Note 24 visits per yr New soon for PN. Pt reports daughter assists her with little ones in am so can attend PT and back to work soon so not sure who will relieve her to come to PT, may need adjust appts. Visit Start Time 07:32 Visit Stop Time 08:30 Total Visit Minutes 58 Visit Number 12 Number of MENTAL HEALTH NURSE PRACTITIONER Visits 4 Precautions Precautions Debridement/decompression L shld 10/04, protocol in forms/ cards. PT-OP-B Current Condition Start: 12/13/21 18:02 Freq: Status: Active Protocol: Document 12/24/21 16:48 [facility] (Rec: 12/24/21 18:17 [facility] [id number]) Current Condition History of Current Condition Onset Date September 19 Current Complaints L shoulder RCR History of Current Condition Pt did PT for about a month or so with no improvement after a fall fwd into her arms around 4 years ago. R shoulder gives her trouble too . Pt reports fingers would get numb at night so she went ahead w/surgery. She gets less numbess in her hands now but it is still a problem. Pt has been the wall crawls, but does have good ROM. She saw PA for follow up about a month after but cancelled her follow up d /t not in w/PT yet. 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 She did follow her restrictions well from surgeon's office early on. Was getting neck pain earlier in recovery but not anymore. Pt reports she has to be very careful w/ movement. Pt R handed. Treatment Goals Patient/Caregiver Goals Be able lift kids, be able to lift overhead, be able to sleep on L side, be able to not feel like she has to be careful, be able to play w/6 y .o. w/o concern or limit. PT-OP-C Subjective Start: 12/13/21 18:02 Freq: Status: Active Protocol: Document 03/12/22 07:32 SP (Rec: 03/12/22 08:20 SP [id number]) OP-PT Subjective Patient Comments Patient Comments Pt reports saw ortho just after last tx and stated making good progress. She reports saw regular physician for her worsening sciatic flare up with tingling top foot comin up lateral legs, can't sit very long minutes, was told to take meds for pain and see PT for back. PT-OP-F Manual Assessment Start: 12/13/21 18:02 Freq: Status: Active Protocol: Document 12/24/21 16:48 [facility] (Rec: 12/24/21 18:17 [facility] [id number]) Manual Assessments Soft Tissue Assessment Soft Tissue Mobility Assessment tightness in pec, biceps, deltoid, scar adherance, infra & supraspinatus tightness, scalenes, UT, LS Joint Mobility Assessment Joint Mobility Assessment tightness in GH capsule w/hard end feels w/PROM PT-OP-J Posture/Palpation/Skin Start: 12/13/21 18:02 Freq: Status: Active Protocol: Document 12/24/21 16:48 [facility] (Rec: 12/24/21 18:17 [facility] [id number]) Posture Evaluation [facility] Postural Classification System [facility] Postural Classifications Posterior/Posterior Elbow Flexion Test 0 Comments Posture Comments ant tipped scap, abd, elevated scap, IR of UE L>R, slight inc kyphosis & ant neck PT-OP-K Range of Motion Start: 12/13/21 18:02 Freq: Status: Active Protocol: Document 03/12/22 07:32 SP (Rec: 03/12/22 08:20 SP [id number]) Shoulder Goniometric Range of Motion Shoulder Left Active Shoulder ROM WFL No Testing Position Supine Flexion 155 Extension 40 Abduction 111 External Rotation at 0 degrees Abduction 38 Internal Rotation Behind Back (text) lat inf buttock Comments L shld AROM: gained FF 6 deg (was 9149 deg) , standin less 38 deg (was 149 deg) gained ext 6 deg (was 34 deg) gained ER 41 deg w/ 25 deg ABD (was 60 deg) 70d eg supine, standing 164 deg. No increase in IR, AAROM L SI. PT-OP-M Strength Start: 12/13/21 18:02 Freq: Status: Active Protocol: Document 12/24/21 16:48 [facility] (Rec: 12/24/21 18:17 [facility] [id number]) Shoulder Strength Shoulder Manual Muscle Testing Left Flexion 3+ Fair+ Extension 3+ Fair+ Abduction (C5) 2+ Poor+ External Rotation 3 Fair Internal Rotation 3 Fair Comments pain w/resistance Right Flexion 5 Normal Extension 5 Normal Abduction (C5) 5 Normal External Rotation 5 Normal Internal Rotation 5 Normal Elbow/Forearm Strength Elbow and Forearm Manual Muscle Testing Left Flexion (C6) 4- Good- Extension (C7) 4- Good- Pronation 4- Good- Supination 4- Good- Right Flexion (C6) 5 Normal Extension (C7) 5 Normal Pronation 5 Normal Supination 5 Normal Hand Cafeteria Operator/Pinch Strength Hand Dominance Hand Dominance Right Hand Strength Right Comments 31kg, 34 kg, 29 kg Left Comments 25lb, 22kg,24kg PT-OP-Q Treatments Start: 12/13/21 18:02 Freq: Status: Active Protocol: Document 03/12/22 07:32 SP (Rec: 03/12/22 08:20 SP [id number]) Therapeutic Exercises Supine Exercises Sciatic nerve glide Supine Exercise Name Discussed Sidelying Exercises open book Side bilateral Reps/Minutes 10 ea Comments cued head turns with arm abd Side left Resistance AROM>#1 DB> #2 DB Equipment Used 1# Reps/Minutes 25 total Comments cued alignment stacked, UE alignment, no UT recruitment ER Side left Resistance #1 DB> #2 Reps/Minutes 25 total Comments towel at elbow, comfortable range, no UT recruitment Standing Exercises ER Side left Equipment Used L2 Reps/Minutes 15 IR Side left Equipment Used L1>L2 Reps/Minutes 15 Manual Therapy Treatment Soft Tissue Mobilization L scap, neck Body Location L pecs, deltoid, UT, prox bicep Mobilization Type Myofascial Release,Strumming Intensity/Depth Moderate Body Position Sidelying Joint Mobilizations scapulothoracic PNF Joint scap mobs into all planes Grade II Body Position Sidelying PT-OP-R Modalities Start: 12/13/21 18:02 Freq: Status: Active Protocol: Document 03/12/22 07:32 SP (Rec: 03/12/22 08:20 SP [id number]) Hot Pack/Cold Pack Treatment CP Location LB Patient Position Supine Treatment Duration (minutes) 20 Comments Good feedback relief from LBP PT-OP-T Assessment and Plan Start: 12/13/21 18:02 Freq: Status: Active Protocol: Document 03/12/22 07:32 SP (Rec: 03/12/22 08:20 SP [id number]) Physical Therapy Assessment Goals functional Short Term Goal (STG) Pt will be able to sleep on L side comfortably 02/19: progressing: can sleep on L side for little bit but discomfort lateral hips feel like laying on cement with back pain lately. Is using pillow between BLEs. 02/22: can fall asleep comfortably but when wakes up hurts and fingers numb. 03/12/22: Ortho stated not sleep on L side but R side sciatica flared up right now so turning often during night. 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 02/19: GOAL MET: able to lift them over head. LTG Duration 03/26/22 GOAL MET 02/19/22 strength Short Term Goal (STG) Pt will be indep w/HEP: 02/19/22: Progressing: uses home wand FF/ABD/ER STG Duration 02/15/22 Group Home Goal (LTG) Pt will score 5/5 on EFT and MMT of L shoulder and elbow w/ o pain in order to allow her to do her typical fucntional activities w/o pain or weakness. LTG Duration 03/26/22 ROM Short Term Goal (STG) Pt will improve AROM L flex to at least 120, Abd to 90 and ext to 45 to allow greater reaching ability. STG Duration 02/15/22 Group Home Goal (LTG) Pt will have w/in 90% range of RUE AROM in L shoulder to allow for her to do ADLs, and job related activtiies w/o restriction LTG Duration 03/26/22 quick DASH Impairment 45.45 Short Term Goal (STG) Pt will improve quick dash score to no greater than 32 to show impoved functional ability. 02/22/22: progressing: score=29 .55 (20-39% impaired) STG Duration 02/15/22 progressin02/22/22 Group Home Goal (LTG) Pt will improve quick dash score to no greater than 12 to show impoved functional ability. 02/22/22: progressing: score=29 .55 (20-39% impaired) LTG Duration 03/27/22 progressin02/22/22 Assessment Summary Assessment Pt minimal improvement in back pain beginning to end, very limited in activity tolerance this tx outside of supine amd sidelying due to LBP and sciatica worsening. She is interested in completing L shld rehab even though not back to full ROM and strength due to LB is more acute and her physician recommended doing therapy for back. She is unsure if a referral is put in for her back. She also mentioned her daughter's schedule is changing and has had hard time making appts so cancelled as direction in advance. She might be able to make Wed appts due to has assist to watch kids. She is making small gains in ROM but not significant. Unableto progress strength in L shld due to back pain and position tolerance. Provided CP to back during shld exercises for pain assist. Physical Therapy Plan Frequency and Duration Frequency of Treatment 1-2x/week Duration of treatment (weeks) 12 Plan of Care Start Date 12/24/21 Plan of Care End Date 03/18/22 Therapeutic Interventions Therapeutic Interventions Aquatic Therapy,Home Exercise Program,Joint Mobilizations, Manual Therapy,Neuromuscular Re-education,Orthotic/ Prosthetic Management,Patient/ Caregiver Education,Self-Care/ Home Management,Soft Tissue Mobilization,Taping, Therapeutic Activities, Therapeutic Exercises Modalities Cold Pack/Ice Massage,Electric Stimulation,Hot Packs, Infrared Therapy,Ultrasound Next Visit Focus/Plan Next Note Type Progress Note Next Visit Plan Pt due for updated PN, 1th visit today, making progress. see Goal feedback. Continue IR stretch added last tx. Next tx: review prone HEP, add supine over noodle UE FF, HABD, serratus punch if able. POC cont to advance ROM with manual and exercises and start to progress strengthening
--- NOTE | 2022-03-27 13:39 | PT.OPDS ---
Current Diagnoses Strain of muscle(s) and tendon(s) of the rotator cuff of left shoulder, subsequent encounter (03/12/22) Visit Care Team Role Provider Type Phoenix Rosa PA-C Attending Provider Non-Staff Family Provider Primary Care Provider Referring Provider Specialty: Medical Address: [address] [place] [address], [place], [address] Phone: Email: Visit Number Visit Number 12 Discharge Summary PT-OP-B Current Condition Start: 12/13/21 18:02 Freq: Status: Active Protocol: Document 12/24/21 16:48 [facility] (Rec: 12/24/21 18:17 [facility] [id number]) Current Condition History of Current Condition Onset Date September 19 Current Complaints L shoulder RCR History of Current Condition Pt did PT for about a month or so with no improvement after a fall fwd into her arms around 4 years ago. R shoulder gives her trouble too . Pt reports fingers would get numb at night so she went ahead w/surgery. She gets less numbess in her hands now but it is still a problem. Pt has been the wall crawls, but does have good ROM. She saw PA for follow up about a month after but cancelled her follow up d /t not in w/PT yet. 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 She did follow her restrictions well from surgeon's office early on. Was getting neck pain earlier in recovery but not anymore. Pt reports she has to be very careful w/ movement. Pt R handed. Treatment Goals Patient/Caregiver Goals Be able lift kids, be able to lift overhead, be able to sleep on L side, be able to not feel like she has to be careful, be able to play w/6 y .o. w/o concern or limit. PT-OP-C Subjective Start: 12/13/21 18:02 Freq: Status: Active Protocol: Document 03/12/22 07:32 SP (Rec: 03/12/22 08:20 SP [id number]) OP-PT Subjective Patient Comments Patient Comments Pt reports saw ortho just after last tx and stated making good progress. She reports saw regular physician for her worsening sciatic flare up with tingling top foot comin up lateral legs, can't sit very long minutes, was told to take meds for pain and see PT for back. PT-OP-F Manual Assessment Start: 12/13/21 18:02 Freq: Status: Active Protocol: Document 12/24/21 16:48 [facility] (Rec: 12/24/21 18:17 [facility] [id number]) Manual Assessments Soft Tissue Assessment Soft Tissue Mobility Assessment tightness in pec, biceps, deltoid, scar adherance, infra & supraspinatus tightness, scalenes, UT, LS Joint Mobility Assessment Joint Mobility Assessment tightness in GH capsule w/hard end feels w/PROM PT-OP-J Posture/Palpation/Skin Start: 12/13/21 18:02 Freq: Status: Active Protocol: Document 12/24/21 16:48 [facility] (Rec: 12/24/21 18:17 [facility] [id number]) Posture Evaluation [facility] Postural Classification System Yoel Postural Classifications Posterior/Posterior Elbow Flexion Test 0 Comments Posture Comments ant tipped scap, abd, elevated scap, IR of UE L>R, slight inc kyphosis & ant neck PT-OP-K Range of Motion Start: 12/13/21 18:02 Freq: Status: Active Protocol: Document 03/12/22 07:32 SP (Rec: 03/12/22 08:20 SP [id number]) Shoulder Goniometric Range of Motion Shoulder Left Active Shoulder ROM WFL No Testing Position Supine Flexion 155 Extension 40 Abduction 111 External Rotation at 0 degrees Abduction 38 Internal Rotation Behind Back (text) lat inf buttock Comments L shld AROM: gained FF 6 deg (was 9149 deg) , standin less 38 deg (was 149 deg) gained ext 6 deg (was 34 deg) gained ER 41 deg w/ 25 deg ABD (was 60 deg) 70d eg supine, standing 164 deg. No increase in IR, AAROM L SI. PT-OP-M Strength Start: 12/13/21 18:02 Freq: Status: Active Protocol: Document 12/24/21 16:48 [facility] (Rec: 12/24/21 18:17 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 (Rec: 03/27/22 13:38 [facility] [id number]) Physical Therapy Assessment Goals functional Short Term Goal (STG) Pt will be able to sleep on L side comfortably 02/19: progressing: can sleep on L side for little bit but discomfort lateral hips feel like laying on cement with back pain lately. Is using pillow between BLEs. 02/22: can fall asleep comfortably but when wakes up hurts and fingers numb. 03/12/22: Ortho stated not sleep on L side but R side sciatica flared up right now so turning often during night. STG Duration 02/23/22 limited progress: Long-Term Goal (LTG) 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 02/19: GOAL MET: able to lift them over head. LTG Duration 03/26/22 GOAL MET 02/19/22 strength Short Term Goal (STG) Pt will be indep w/HEP: 02/19/22: Progressing: uses home wand FF/ABD/ER STG Duration 02/15/22 Legal Job Titles Goal (LTG) Pt will score 5/5 on EFT and MMT of L shoulder and elbow w/ o pain in order to allow her to do her typical fucntional activities w/o pain or weakness. LTG Duration 03/26/22 ROM Short Term Goal (STG) Pt will improve AROM L flex to at least 120, Abd to 90 and ext to 45 to allow greater reaching ability. STG Duration 02/15/22 Long-Term Goal (LTG) Pt will have w/in 90% range of RUE AROM in L shoulder to allow for her to do ADLs, and job related activtiies w/o restriction LTG Duration 03/26/22 quick DASH Impairment 45.45 Short Term Goal (STG) Pt will improve quick dash score to no greater than 32 to show impoved functional ability. 02/22/22: progressing: score=29 .55 (20-39% impaired) STG Duration achieved Legal Job Titles Goal (LTG) Pt will improve quick dash score to no greater than 12 to show impoved functional ability. 02/22/22: progressing: score=29 .55 (20-39% impaired) LTG Duration 03/27/22 progressin02/22/22 Assessment Summary Assessment Discussed w/pt on phone and she feels like shoulder is doing okay except ability to reach behind her back. She feels good about her exercises at this time and is more concerned re: LBP that has been limiting her so plans to discontinue PT for her shoulder d/t this and transition to care for her back. She has made good progress w/PT at this time and plans to cont to work on limitations with shoulder w/ her HEP. DC PT Physical Therapy Plan Discharge Physical Therapy Discharge Reasons Patient Request
== END 2022-03-28 10:08 | disposition home or self-care (01) ==
LOC: PHYS 07:30
PROVIDERS: Family Provider Physician Assistant; PCP Physician Assistant; Referring Provider Physician Assistant; Visit Provider Physician Assistant
DX: S46.012D Strain of muscle(s) and tendon(s) of the rotator cuff of left shoulder, subsequent encounter (principal)
CPT/HCPCS: 97010; 97014; 97032; 97110; 97140; 97162; G0283